=== PATIENT | male | born 1940 | race Caucasian/White ===

== ENCOUNTER 2017-09-20 22:22 | Inpatient (IN) | payer BC, OTHER ==
[~2017-09-20] VITALS: Ht 185.4 cm; Wt 86.0 kg
[2017-09-20] MEDS ORDERED: ONDANSETRON INJ 2 MG/ML 2 ML VIAL IV STA (23:15)
[2017-09-20] MEDS ORDERED: HYDROmorphone INJ 0.5 MG/0.5 ML SYR IV STA (23:15)
[2017-09-20 23:54] LABS: BASO % 0.8 %; BASO ABS # 0.05 K/uL (0-0.2); COMPLETE YES; EOS % 1.9 %; HEMATOCRIT 43.1 % (42-52); IG% 1.4 %; LYMPH % 33.3 %; LYMPH ABS # 2.14 K/uL (1.2-3.4); MEAN CELL VOLUME 85.2 fL (80-100); MEAN CORPUSCULAR HEMOGLOBIN 29.8 pg (25-34); MEAN PLATELET VOLUME 10.7 fL (7.4-10.4); MONO % 8.2 %; NEUT % 54.4 %; PLATELET COUNT 202 K/uL (130-400); RED BLOOD COUNT 5.06 M/uL (4.7-6.1); WHITE BLOOD COUNT 6.43 K/uL (4.8-10.8)
--- NOTE | 2017-09-20 23:58 | EMERGENCY ROOM VISIT NOTE ---
ED Visit Note First contact with patient: 22:59 Patient with a chronic history of back pain. Patient complains of right hip and buttocks pain that radiates into the lateral aspect of his thigh. Patient does not have any bowel or bladder dysfunction. On exam the patient's able to raise his legs off the stretcher without difficulty. Patient will be evaluated for herniated disc and further testing; likely sciatica Allergies Coded Allergies: Atorvastatin (Verified Allergy, Intermediate, Muscle pain, 09/20/17) Simvastatin (Verified Allergy, Intermediate, Muscle pain, 09/20/17) Vital Signs Date Time Temp Pulse Resp B/P (MAP) Pulse Ox O2 Delivery O2 Flow Rate FiO2 09/20/17 22:35 36.6 62 20 111/73 97 Room Air Laboratory Results 09/20/17 23:47 Red Blood Count 5.06, Mean Corpuscular Volume 85.2, Mean Corpuscular Hemoglobin 29.8, Mean Corpuscular Hemoglobin Concent 35.0, Mean Platelet Volume 10.7, Neutrophils (%) (Auto) 54.4, Lymphocytes (%) (Auto) 33.3, Monocytes (%) (Auto) 8.2, Eosinophils (%) (Auto) 1.9, Basophils (%) (Auto) 0.8, Neutrophils # (Auto) 3.50, Lymphocytes # (Auto) 2.14, Monocytes # (Auto) 0.53, Eosinophils # (Auto) 0.12, Basophils # (Auto) 0.05 Test 09/20/17 23:47 White Blood Count 6.43 K/uL (4.8-10.8) Red Blood Count 5.06 M/uL (4.7-6.1) Hemoglobin 15.1 g/dL (14.0-18.0) Hematocrit 43.1 % (42-52) Mean Corpuscular Volume 85.2 fL (80-100) Mean Corpuscular Hemoglobin 29.8 pg (25-34) Mean Corpuscular Hemoglobin Concent 35.0 g/dl (32-36) Platelet Count 202 K/uL (130-400) Mean Platelet Volume 10.7 fL (7.4-10.4) Neutrophils (%) (Auto) 54.4 % Lymphocytes (%) (Auto) 33.3 % Monocytes (%) (Auto) 8.2 % Eosinophils (%) (Auto) 1.9 % Basophils (%) (Auto) 0.8 % Neutrophils # (Auto) 3.50 K/uL (1.4-6.5) Lymphocytes # (Auto) 2.14 K/uL (1.2-3.4) Monocytes # (Auto) 0.53 K/uL (0.11-0.59) Eosinophils # (Auto) 0.12 K/uL (0-0.5) Basophils # (Auto) 0.05 K/uL (0-0.2) RDW Standard Deviation 43.3 fL (36.4-46.3) RDW Coefficient of Variation 14.1 % (11.5-14.5) Immature Granulocyte % (Auto) 1.4 % Immature Granulocyte # (Auto) 0.09 K/uL (0.00-0.02) Medications Administered Medications (Trade) Dose Ordered Sig/Sarbjit Route Start Time Stop Time Status Last Admin Dose Admin Ondansetron HCl (Zofran Inj) 4 mg NOW STAT IV 09/20/17 23:15 09/20/17 23:18 DC 09/20/17 23:56 4 MG Hydromorphone HCl (Dilaudid Inj) 0.5 mg NOW STAT IV 09/20/17 23:15 09/20/17 23:18 DC 09/20/17 23:56 0.5 MG Departure Information Referrals No Doctor, Assigned (PCP) Patient Instructions [facility]
[2017-09-21 00:11] LABS: PARTIAL THROMBOPLASTIN RATIO 1.1; PROTHROMBIN TIME (PATIENT) 10.2 SECONDS (9.0-12.0)
[2017-09-21 00:12] LABS: ALT/SGPT 43 U/L (12-78); BLOOD UREA NITROGEN 23 mg/dl (7-18); BUN/CREATININE RATIO 18.2 (10-20); CALCIUM 9.3 mg/dl (8.5-10.1); CARBON DIOXIDE 24 mmol/L (21-32); CHLORIDE 100 mmol/L (98-107); CREATININE 1.25 mg/dl (0.60-1.40); GLUCOSE 169 mg/dl (70-99); SODIUM 133 mmol/L (136-145)
[2017-09-21 00:17] LABS: ALKALINE PHOSPHATASE 126 U/L (45-117); AST/SGOT 27 U/L (15-37)
[2017-09-21] MEDS ORDERED: LISI-729 PO (00:37)
[2017-09-21] MEDS ORDERED: ENOX30IN4 SQ (00:37)
[2017-09-21] MEDS ORDERED: PRAV20TA PO (00:39)
[2017-09-21] MEDS ORDERED: POTA1CAP2 PO (00:39)
[2017-09-21] MEDS ORDERED: METO25TA3 PO (00:39)
[2017-09-21] MEDS ORDERED: DOCU-94 PO (00:39)
[2017-09-21] MEDS ORDERED: GLIP5TAB3 PO (00:42)
[2017-09-21] MEDS ORDERED: FURO-85 PO (00:42)
[2017-09-21] MEDS ORDERED: PRLSR20 PO (00:43)
[2017-09-21] MEDS ORDERED: METF-384 PO (00:43)
[2017-09-21] MEDS ORDERED: ROPI5TAB PO (00:43)
[2017-09-21] MEDS ORDERED: ACET325T96 PO (00:45)
[2017-09-21] MEDS ORDERED: TAMS0.4C38 PO (00:45)
[2017-09-21] MEDS ORDERED: HYDR-4079 PO (00:47)
[2017-09-21] MEDS ORDERED: ACET650S10 PR (00:48)
[2017-09-21] MEDS ORDERED: GADAVIST IV PRN (02:45)
[2017-09-21] MEDS ORDERED: HYDROmorphone INJ 0.5 MG/0.5 ML SYR IV STA (03:51)
--- NOTE | 2017-09-21 03:54 | EMERGENCY ROOM VISIT NOTE ---
History First contact with patient: 22:59 Chief Complaint: BACK PAIN Stated Complaint: INCREASING BACK PAIN,INABILITY TO WALK AND MOVE W/ History of Present Illness The patient is a 76 year old male who presents to the Emergency Room with complaints of severe back pain that radiates from his low back to his right hip with increasing leg pain and weakness that has been chronic but worse today for the past several years who also is feeling fatigued. Pain currently 9 out of 10. Patient states he is normally at least able to get around with his walker but was unable to today as his legs felt to weak for him but he is able to move them. Patient states his son had a left into the wheelchair. He took a hydrocodone with minimal improvement of symptoms. He is suppose to have back surgery by Dr. Vines. The paperwork was misplaced and patient will not be having surgery tomorrow as scheduled. Patient is on Lovenox for PE and DVT. Patient had recent MRI imaging. Patient denies fall, chest pain, dyspnea, fever , chills, nausea, vomiting, diarrhea, urinary symptoms, loss of bowel or bladder control, saddle anesthesia, IV drug abuse. Patient is on chronic hydrocodone for his pain. Review of Systems See HPI for pertinent positives & negatives. A total of 10 systems reviewed and were otherwise negative. Past Medical/Surgical History Hypertension, hyperlipidemia, GERD, chronic back pain, diabetes Social History Smoking Status: Never Smoker Smokeless Tobacco Use: No Alcohol Use: none Drug Use: none Marital Status: single Occupation Status: retired Current/Historical Medications Scheduled Docusate Sodium (Colace), 100 MG PO BID Enoxaparin (Lovenox), 30 MG SQ Q12H Furosemide (Lasix), 20 MG PO QAM Glipizide (Glucotrol), 5 MG PO BID Lisinopril (Zestril), 2.5 MG PO DAILY Metformin Hcl (Glucophage), 1,000 MG PO BID Metoprolol Succ (Toprol Xl) (Toprol-Xl), 25 MG PO DAILY Omeprazole (Prilosec), 20 MG PO QAM Potassium Chloride (Potassium Chloride Er), 10 MEQ PO DAILY Pravastatin (Pravachol ), 20 MG PO DAILY Ropinirole (Requip), 5 MG PO HS Tamsulosin Hcl (Flomax), 0.4 MG PO DAILY Scheduled PRN Acetaminophen (Tylenol), 650 MG MS Q4 PRN for Mild Pain Acetaminophen Tab (Tylenol), 650 MG PO Q4 PRN for Pain or Fever Hydrocodone/Acetaminophen 10MG/325MG ([place] 10MG/325MG), 1 TAB PO Q6 PRN for Moderate Pain Physical Exam Vital Signs Date Time Temp Pulse Resp B/P (MAP) Pulse Ox O2 Delivery O2 Flow Rate FiO2 09/21/17 03:33 65 18 120/67 98 Room Air 09/21/17 01:44 60 18 114/61 99 Room Air 09/21/17 00:01 70 18 110/57 99 Room Air 09/20/17 22:35 36.6 62 20 111/73 97 Room Air Physical Exam VITALS: Vitals are noted on the nurse's note and reviewed by myself. Vital signs stable. GENERAL: Pleasant elderly male, in no acute distress, nondiaphoretic, well- developed well-nourished. SKIN: The skin was without rashes, erythema, edema, or bruising. There is no tenting of the skin. Capillary reflex less than 2 seconds. HEAD: Normocephalic atraumatic. EARS: External auditory canals clear, tympanic membranes pearly joyce without erythema or effusion bilaterally. EYES: Pupils equal round and reactive to light and accommodation. Conjunctivae without injection, sclerae without icterus. Extraocular movements intact. NOSE: Patent, turbinates without inflammation or discharge. MOUTH: Mucous membranes moist. Pharynx without erythema or exudate. Uvula midline. Airway patent. Tongue does not deviate. NECK: Supple without nuchal rigidity. No lymphadenopathy. No thyromegaly. Cervical spine is nontender. No JVD. HEART: Regular rate and rhythm LUNGS: Clear to auscultation bilaterally without wheezes, rales or rhonchi. No dullness to percussion. No retractions or accessory muscle use. ABDOMEN: Positive bowel sounds x 4. Normal tympanic percussion. Soft, nontender, without masses or organomegaly. Barone sign negative. No guarding or rebound tenderness. MUSCULOSKELETAL: No muscle atrophy, erythema, or edema noted. No thoracic tenderness on exam. Minimal lumbar tenderness on exam. Positive right leg straight leg raise. Patient is able to plantarflex and dorsiflex. He has subjective decreased weakness in the left leg. NEURO: Patient was alert and oriented to person place and time. Normal sensation to light and sharp touch. No focal neurological deficits. Medical Decision & Procedures Laboratory Results 09/20/17 23:47 Red Blood Count 5.06, Mean Corpuscular Volume 85.2, Mean Corpuscular Hemoglobin 29.8, Mean Corpuscular Hemoglobin Concent 35.0, Mean Platelet Volume 10.7, Neutrophils (%) (Auto) 54.4, Lymphocytes (%) (Auto) 33.3, Monocytes (%) (Auto) 8.2, Eosinophils (%) (Auto) 1.9, Basophils (%) (Auto) 0.8, Neutrophils # (Auto) 3.50, Lymphocytes # (Auto) 2.14, Monocytes # (Auto) 0.53, Eosinophils # (Auto) 0.12, Basophils # (Auto) 0.05 09/20/17 23:47 Test 09/20/17 23:47 White Blood Count 6.43 K/uL (4.8-10.8) Red Blood Count 5.06 M/uL (4.7-6.1) Hemoglobin 15.1 g/dL (14.0-18.0) Hematocrit 43.1 % (42-52) Mean Corpuscular Volume 85.2 fL (80-100) Mean Corpuscular Hemoglobin 29.8 pg (25-34) Mean Corpuscular Hemoglobin Concent 35.0 g/dl (32-36) Platelet Count 202 K/uL (130-400) Mean Platelet Volume 10.7 fL (7.4-10.4) Neutrophils (%) (Auto) 54.4 % Lymphocytes (%) (Auto) 33.3 % Monocytes (%) (Auto) 8.2 % Eosinophils (%) (Auto) 1.9 % Basophils (%) (Auto) 0.8 % Neutrophils # (Auto) 3.50 K/uL (1.4-6.5) Lymphocytes # (Auto) 2.14 K/uL (1.2-3.4) Monocytes # (Auto) 0.53 K/uL (0.11-0.59) Eosinophils # (Auto) 0.12 K/uL (0-0.5) Basophils # (Auto) 0.05 K/uL (0-0.2) RDW Standard Deviation 43.3 fL (36.4-46.3) RDW Coefficient of Variation 14.1 % (11.5-14.5) Immature Granulocyte % (Auto) 1.4 % Immature Granulocyte # (Auto) 0.09 K/uL (0.00-0.02) Prothrombin Time 10.2 SECONDS (9.0-12.0) Prothromb Time International Ratio 1.0 (0.9-1.1) Activated Partial Thromboplast Time 28.7 SECONDS (21.0-31.0) Partial Thromboplastin Ratio 1.1 Anion Gap 9.0 mmol/L (3-11) Est Creatinine Clear Calc Drug Dose 56.8 ml/min Estimated GFR () 64.4 Estimated GFR (Non- 55.6 BUN/Creatinine Ratio 18.2 (10-20) Calcium Level 9.3 mg/dl (8.5-10.1) Total Bilirubin 0.4 mg/dl (0.2-1) Direct Bilirubin < 0.1 mg/dl (0-0.2) Aspartate Amino Transf (AST/SGOT) 27 U/L (15-37) Alanine Aminotransferase (ALT/SGPT) 43 U/L (12-78) Alkaline Phosphatase 126 U/L (45-117) Troponin I < 0.015 ng/ml (0-0.045) Total Protein 7.0 gm/dl (6.4-8.2) Albumin 3.7 gm/dl (3.4-5.0) Medications Administered Medications (Trade) Dose Ordered Sig/Sarbjit Route Start Time Stop Time Status Last Admin Dose Admin Ondansetron HCl (Zofran Inj) 4 mg NOW STAT IV 09/20/17 23:15 09/20/17 23:18 DC 09/20/17 23:56 4 MG Hydromorphone HCl (Dilaudid Inj) 0.5 mg NOW STAT IV 09/20/17 23:15 09/20/17 23:18 DC 09/20/17 23:56 0.5 MG ED Course Prior records/ancillary studies reviewed. Triage Nursing notes reviewed. Additional history obtained from family. The patient's history was concerning for back pain. Differential diagnosis: Etiologies such as musculoskeletal, disc herniation, fracture, aortic disease, metastatic disease, cord compression, discitis, infection, renal colic, gastrointestinal, acute exacerbation of chronic back pain, sciatica, cauda equina, as well as others were entertained. Physical findings: As above. ER treatment provided: dilaudid, zofran On reassessment the patient felt better. Diagnostics interpreted by me: The labs revealed stable H&H. Mild hyperglycemia without DKA Imaging studies: MRI L SPINE : Severe multifactorial degenerative central canal stenosis at L4-5 with contribution from prominent ligamentum flavum hypertrophy as well as broad disc bulge. Moderate bilateral neural foraminal stenosis on a multifactorial degenerative basis at L4-L5 and L5-S1. Additional grade 1 degenerative anterolisthesis of L4 relative to L5 with moderate to severe facet arthrosis at L4-5. No other evidence for neural impingement. Disc desiccation all levels. Radiologist: Harish Carrasco M.D. MRI of the L-spine was reviewed that the son brought in. This was given to MRI for comparison. Consultation: A consultation was placed with hospitalist, Dr. Novak. The case was discussed and diagnostics were reviewed. He will evaluate the patient for possible admission. This appears to be consistent with intractable back pain. the patient reported increasing leg weakness and inability to walk. Because of this further imaging was ordered. Patient was able to raise his legs up. He was able to plantarflex and dorsiflex. Sensation was intact. Patient will be evaluated by medicine for possible admission for severe intractable back pain. By the evaluation outlined above emergent etiologies such as fracture, aortic disease, metastatic disease, infection, renal colic, gastrointestinal, cord compression, cauda equina, as well as others were deemed relatively unlikely. The pt informed about the findings as listed above. All questions were answered and pleased with the treatment. Case reviewed with my attending Medical Decision as above Medication Reconcilliation Current Medication List: was personally reviewed by me Blood Pressure Screening Patient's blood pressure: Normal blood pressure Impression Primary Impression: Sciatica Additional Impression: Intractable back pain Departure Information Dispostion Being Evaluated By Hospitalist Condition FAIR Referrals No Doctor, Assigned (PCP) Patient Instructions My [facility] Problem Qualifiers Primary Impression: Sciatica Laterality: right Qualified Codes: M54.31 - Sciatica, right side
[2017-09-21] MEDS ORDERED: DOCUSATE SODIUM/SENNA 50/8.6MG TAB PO ONE (04:24)
[2017-09-21] MEDS ORDERED: INSULIN ASPART 100 UNITS/ML 3 ML PEN SC ONE (04:24)
[2017-09-21] MEDS ORDERED: POLYETHYLENE (MIRALAX) 17 GM PACK PO ONE (04:24)
[2017-09-21] MEDS ORDERED: KETOROLAC TROMETHAMINE 15 MG/ML VIAL IV. PRN (04:30)
[2017-09-21] MEDS ORDERED: POLYETHYLENE (MIRALAX) 17 GM PACK PO PRN (04:30)
[2017-09-21] MEDS ORDERED: ACETAMINOPHEN 325 MG TAB PO PRN (04:30)
[2017-09-21] MEDS ORDERED: GLUCOSE 40% GEL 15 GM TUBE PO PRN (04:30)
[2017-09-21] MEDS ORDERED: GLUCOSE 10 TABS/TUBE PO PRN (04:30)
[2017-09-21] MEDS ORDERED: ONDANSETRON INJ 2 MG/ML 2 ML VIAL IV PRN (04:30)
[2017-09-21] MEDS ORDERED: SODIUM CHLORIDE 0.9% 1000ML 1,000 ML IV ONE (04:30)
[2017-09-21] MEDS ORDERED: GLUCAGON FOR INJ 1 MG VIAL SQ PRN (04:30)
[2017-09-21] MEDS ORDERED: DEXTROSE 50% 50 ML SYR IV PRN (04:30)
[2017-09-21] MEDS ORDERED: HYDROmorphone INJ 0.5 MG/0.5 ML SYR IV PRN (04:30)
[2017-09-21 04:39] LABS: MAGNESIUM 1.8 mg/dl (1.8-2.4)
[2017-09-21 05:07] VITALS: BP 131/70; PULSE 57; TEMP 36.5; O2SAT 98; BMI 25.0
[2017-09-21] MEDS ORDERED: METHYLNALTREXONE BROMIDE INJ 12 MG/0.6 ML SYR SQ ONE (06:21)
[2017-09-21 06:27] LABS: ESTIMATED AVERAGE GLUCOSE 180 mg/dl; HA1C FLAG Normal (Normal)
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
[2017-09-21 07:05] VITALS: BP 115/71; PULSE 54; TEMP 36.3; O2SAT 98
--- NOTE | 2017-09-21 07:33 | DIAGNOSTIC IMAGING REPORT ---
LUMBAR SPINE COMBINATION CLINICAL HISTORY: 76 years-old Male presenting with severe pain, can't walk, on lovenox, pain in the lower back radiating to the legs, right greater than left, pain for a couple of months, numbness also radiating into the legs. TECHNIQUE: Multisequence, multiplanar MR imaging of the lumbar spine was performed before and after the administration of intravenous contrast. IV contrast: 8.5 mL of Gadavist. COMPARISON: 04/07/2010. FINDINGS: Localizer images: Distended bladder. 7 mm of grade 1 anterolisthesis of L4 on L5, which has slightly increased from the prior exam in 2010. Otherwise, normal lumbar lordosis and normal alignment of the remaining vertebral bodies. Minimal bone marrow edema noted at the posterior aspect of the inferior endplate of L4 in the midline, likely degenerative in etiology. Mild diffuse intervertebral disc desiccation with mild focal increased signal within the mid to posterior aspect of the L4-5 disc, likely also degenerative. At this level there is focal disc protrusion with minimal cranial migration. Degenerative changes further detailed below: L1-2: Minimal disc bulge without significant neural foraminal or spinal canal narrowing. L2-3: Minimal disc bulge with right posterior eccentric focal protrusion resulting in effacement of the far lateral right neural foramen. This may results in mild right neural foraminal narrowing and abutment of the exiting right L2 nerve root. No significant spinal canal narrowing. L3-4: Mild eccentric disc bulge effacing the far lateral right neural foramen resulting in mild right neural foraminal narrowing. No significant spinal canal stenosis. L4-5: Prominent disc bulge with central disc protrusion with slight cranial migration. This has worsened since the prior exam. In combination with facet arthropathy and ligamentum flavum thickening, there is complete effacement of the CSF at this level. This is similar in appearance to the prior exam in 2009. Moderate bilateral neural foraminal narrowing also results at this level. L5-S1: Mild disc bulge slightly greater along the right posterior lateral aspect. In combination with facet arthropathy and ligamentum flavum thickening, this results in mild bilateral neural foraminal narrowing and possible abutment of the bilateral exiting L5 nerve roots. No significant spinal canal stenosis. Spinal cord ends in good position at L1. Cauda equina crowded secondary to spinal stenosis at the L4-5 level, appearance which is unchanged since 2010. Mild paraspinal muscular edema noted in the lower lumbar region. No epidural collection. Postcontrast imaging demonstrates focal enhancement surrounding the disc protrusion at L4-5. The disc itself does not abnormally enhance at the L4-5 level. Minimal enhancement of the cauda equina nerve roots at the L4-5 level suggested. No other abnormal enhancement. IMPRESSION: 1. Multilevel degenerative changes slightly progressed since 2009. The most severe degenerative change is located at L4-5, where there is chronic apparent impingement of the cauda equina, and appearance which is unchanged since 2009. However, increased focal disc protrusion with cranial migration centrally at L4-5 with associated degenerative related reactive changes. 2. Multilevel neural foraminal narrowing as detailed above. Abutment of exiting nerve roots most pronounced on the right at L2 and bilaterally at L5. Electronically signed by: Milton Baig M.D. 09/21/2017 7:32 AM Dictated Date/Time: 09/21/2017 7:19 AM
[2017-09-21] MEDS: METOPROLOL SUCC 25MG EXT REL TAB PO SCH (08:30)
[2017-09-21] MEDS: LISINOPRIL 5 MG TAB PO SCH (08:31)
[2017-09-21] MEDS: PRAVASTATIN SOD 20 MG TAB PO SCH (08:31)
[2017-09-21] MEDS: TAMSULOSIN HCL 0.4 MG CAP PO SCH (08:31)
[2017-09-21] MEDS: PANTOprazole SOD 40 MG TAB PO SCH (08:31)
[2017-09-21] MEDS: DOCUSATE SODIUM/SENNA 50/8.6MG TAB PO SCH ×2 (08:31→22:03)
[2017-09-21] MEDS: INSULIN ASPART 100 UNITS/ML 3 ML PEN SC SCH ×4 (08:43→21:58)
[2017-09-21] MEDS: INSULIN GLARGINE SOLOSTAR 100 UNITS/ML 3 ML PEN SC SCH (09:27)
[2017-09-21 09:40] LABS: URINE APPEARANCE CLEAR (CLEAR); URINE BILIRUBIN NEG (NEG); URINE COLOR YELLOW; URINE NITRITE NEG (NEG); URINE SPECIFIC GRAVITY 1.027 (1.000-1.030); UROBILINOGEN NEG (NEG); ZZUR CULT IF INDIC CLEAN CATCH NO
[2017-09-21 09:45] LABS: MANUAL MICROSCOPIC REQUIRED? NO; REVIEW REQ? NO
[2017-09-21] MEDS ORDERED: IV FLUIDS COMPLETED PRN (10:15)
[2017-09-21 11:06] LABS: BUN/CREATININE RATIO 20.3 (10-20); CALCIUM 9.1 mg/dl (8.5-10.1); CREATININE 1.14 mg/dl (0.60-1.40); POTASSIUM 3.9 mmol/L (3.5-5.1)
--- NOTE | 2017-09-21 12:25 | Anesthesiology Progress Note ---
Anesthesia Progress Note Date of Service Sep 21, 2017. Progress Notes Pt is scheduled for L4-S1 decompression and fusion on 09/22/17. The pt is a 76M h /o CAD, HTN, PE, GERD, L ankle fx, DM2 presenting with lower back pain. The pt denies having an complications under anesthesia. The pt had a recent cardiac cath performed 2/2 abnormal stress test. The cardiac cath on 09/15/17 showed nonobstructive epicardial coronary artery disease. There is a patent stent in the proximal LAD without significant in-stent restenosis. The pt is an acceptable candidate for general anesthesia +/- arterial line. Consent was obtained from the patient. All questions and concerns were addressed. I spoke with Dr. Vines in regards to the patient's lovenox status. I ordered a type and screen in preparation for the procedure.
--- NOTE | 2017-09-21 12:46 | DIAGNOSTIC IMAGING REPORT ---
VENOUS DOPPLER LWR EXT BILA CLINICAL HISTORY: 76 years-old Male presenting with hx of dvt. TECHNIQUE: Real-time grayscale and color and spectral Doppler ultrasound imaging of the veins of the bilateral lower extremities was performed. Compression and augmentation were also utilized. COMPARISON: None. FINDINGS: Right: Common femoral vein: Nonocclusive filling defect consistent with thrombus. Femoral vein: Occlusive filling defect consistent with thrombus in the mid to distal superficial femoral vein. Nonocclusive thrombus noted in the proximal portion Greater saphenous vein: Patent. Popliteal vein: Nonocclusive thrombus noted. Calf veins: Intermittent flow with nonocclusive thrombus noted in one of the duplicated anterior tibial veins. Intermittent flow in the remaining calf veins, which are poorly visualized. Left: Common femoral vein: Patent. Femoral vein: Patent. Greater saphenous vein: Patent. Popliteal vein: Patent. Calf veins: Limited visualization. Other: None. IMPRESSION: Acute deep venous thrombosis involving the right superficial femoral vein to the popliteal vein. Thrombus is occlusive in some portions of the femoral vein and minimally extends into the common femoral vein. The report will be called/faxed according to standard departmental protocol. Electronically signed by: Milton Baig M.D. 09/21/2017 12:45 PM Dictated Date/Time: 09/21/2017 12:38 PM
--- NOTE | 2017-09-21 12:54 | Orthopedic Consultation ---
Orthopedic Consultation Date of Consultation: Sep 21, 2017. Attending Physician: Celso Sotomayor MD Reason for Consultation: Back and leg pain History of Present Illness Very pleasant 70-year-old male known to me with a diagnosis of spondylolisthesis and spinal stenosis affecting the lower lumbar regions. He presents to the hospital last evening with a marked decline in status. He is noting worsening pain in the lumbar sacral junction extending into the right buttock and down the leg. He's ability to stand for any short period of time as well as ambulate as markedly declined. Status post left ankle fracture June of this year. This is been treated and healed. He notes no other new complaints at this time. No changes in bowel bladder function. He does describe numbness the bilateral lower extremities to clean the feet. The right is worse than left. Past Medical/Surgical History Medical Problems: (1) Intractable back pain Status: Acute (2) Sciatica Status: Acute Social History Smoking Status: Never Smoker Smokeless Tobacco Use: No Drug Use: none Marital Status: single Occupation Status: retired Allergies Coded Allergies: Atorvastatin (Verified Allergy, Intermediate, Muscle pain, 09/20/17) Simvastatin (Verified Allergy, Intermediate, Muscle pain, 09/20/17) Home Medications Scheduled Docusate Sodium (Colace), 100 MG PO BID Enoxaparin (Lovenox), 30 MG SQ Q12H Furosemide (Lasix), 20 MG PO QAM Glipizide (Glucotrol), 5 MG PO BID Lisinopril (Zestril), 2.5 MG PO DAILY Metformin Hcl (Glucophage), 1,000 MG PO BID Metoprolol Succ (Toprol Xl) (Toprol-Xl), 25 MG PO DAILY Omeprazole (Prilosec), 20 MG PO QAM Potassium Chloride (Potassium Chloride Er), 10 MEQ PO DAILY Pravastatin (Pravachol ), 20 MG PO DAILY Ropinirole (Requip), 5 MG PO HS Tamsulosin Hcl (Flomax), 0.4 MG PO DAILY Scheduled PRN Acetaminophen (Tylenol), 650 MG CO Q4 PRN for Mild Pain Acetaminophen Tab (Tylenol), 650 MG PO Q4 PRN for Pain or Fever Hydrocodone/Acetaminophen 10MG/325MG (Gilbert 10MG/325MG), 1 TAB PO Q6 PRN for Moderate Pain Current Inpatient Medications Current Inpatient Medications Medications (Trade) Dose Ordered Sig/Sarbjit Route Start Time Stop Time Status Last Admin Dose Admin Gadobutrol (Gadavist) 8.5 mmol UD PRN IV 09/21/17 02:45 09/25/17 02:44 Acetaminophen (Tylenol Tab) 650 mg Q4H PRN PO 09/21/17 04:30 10/21/17 04:29 Insulin Aspart (novoLOG ASPART) SLIDING SCALE If C... ACHS SC 09/21/17 08:00 10/21/17 07:59 09/21/17 08:43 3 UNITS Glucose (Glucose 40% Gel) 15-30 GRAMS 15 GRAMS... UD PRN PO 09/21/17 04:30 10/21/17 04:29 Glucose (Glucose Chew Tab) 4-8 Tablets 4 Tabl... UD PRN PO 09/21/17 04:30 10/21/17 04:29 Dextrose (Dextrose 50% 50ML Syringe) 25-50ML OF 50% DW IV FOR... UD PRN IV 09/21/17 04:30 10/21/17 04:29 Glucagon (Glucagon Inj) 1 mg UD PRN SQ 09/21/17 04:30 10/21/17 04:29 Acetaminophen/ Hydrocodone Bitart (Gilbert 10/325 Tab) pain not relieved by tyle... Q4H PRN PO 09/21/17 04:30 10/05/17 04:29 Lisinopril (Zestril Tab) 2.5 mg DAILY PO 09/21/17 09:00 10/21/17 08:59 09/21/17 08:31 2.5 MG Metoprolol Succinate (Toprol Xl Tab) 25 mg DAILY PO 09/21/17 09:00 10/21/17 08:59 Pravastatin Sodium (Pravachol Tab) 20 mg DAILY PO 09/21/17 09:00 10/21/17 08:59 09/21/17 08:31 20 MG Ropinirole HCl (Requip Tab) 5 mg HS PO 09/21/17 21:00 10/21/17 20:59 Tamsulosin HCl (Flomax Cap) 0.4 mg DAILY PO 09/21/17 09:00 10/21/17 08:59 09/21/17 08:31 0.4 MG Pantoprazole Sodium (Protonix Tab) 40 mg QAM PO 09/21/17 09:00 10/21/17 08:59 09/21/17 08:31 40 MG Senna/Docusate Sodium (Senokot S Tab) 1 tab BID PO 09/21/17 09:00 10/21/17 08:59 09/21/17 08:31 1 TAB Polyethylene (Miralax Powder Packet) 17 gm DAILY PRN PO 09/21/17 04:30 10/21/17 04:29 Ketorolac Tromethamine (Toradol Inj) 15 mg Q6H PRN IV. 09/21/17 04:30 09/26/17 04:29 Hydromorphone HCl (Dilaudid Inj) 0.5 mg Q4H PRN IV 09/21/17 04:30 10/05/17 04:29 Sodium Chloride 1,000 ml @ 75 mls/hr [id number] ONCE IV 09/21/17 04:30 09/21/17 17:49 09/21/17 06:10 75 MLS/HR Ondansetron HCl (Zofran Inj) 4 mg Q6H PRN IV 09/21/17 04:30 10/21/17 04:29 Miscellaneous Information (Order Awaiting Action) 1 ea QS N/A 09/21/17 08:00 10/21/17 07:59 Insulin Glargine (Lantus Solostar Pen) 10 units DAILY SC 09/21/17 09:00 10/21/17 08:59 09/21/17 09:27 10 UNITS Miscellaneous (Iv Fluids Completed) 1 ea PRN PRN N/A 09/21/17 10:15 09/21/18 10:14 Heparin Sodium/ Dextrose 1 ea NOW STAT N/A 09/21/17 12:49 09/21/17 12:50 UNV Physical Exam Date Time Temp Pulse Resp B/P (MAP) Pulse Ox O2 Delivery O2 Flow Rate FiO2 09/21/17 07:20 Room Air 09/21/17 07:05 36.3 54 15 115/71 (86) 98 Room Air 09/21/17 05:07 36.5 57 16 131/70 98 Room Air 09/21/17 04:33 62 18 120/67 99 09/21/17 03:33 65 18 120/67 98 Room Air 09/21/17 01:44 60 18 114/61 99 Room Air 09/21/17 00:01 70 18 110/57 99 Room Air 09/20/17 22:35 36.6 62 20 111/73 97 Room Air On physical exam he is alert and oriented. He is cooperative with exam. Does demonstrate +5 out of 5 bilateral quadriceps dorsiflexion plantar flexion to extensor hallucis longus. Sensory symmetric and intact but again decreased sensation to the lower extremities from the ankle distally. [facility] [place] logroll. No evidence of clonus diminished reflexes. Laboratory Results Last 24 Hours Test 09/20/17 23:47 09/21/17 09:20 09/21/17 09:59 09/21/17 12:40 White Blood Count 6.43 K/uL Red Blood Count 5.06 M/uL Hemoglobin 15.1 g/dL Hematocrit 43.1 % Mean Corpuscular Volume 85.2 fL Mean Corpuscular Hemoglobin 29.8 pg Mean Corpuscular Hemoglobin Concent 35.0 g/dl Platelet Count 202 K/uL Mean Platelet Volume 10.7 fL Neutrophils (%) (Auto) 54.4 % Lymphocytes (%) (Auto) 33.3 % Monocytes (%) (Auto) 8.2 % Eosinophils (%) (Auto) 1.9 % Basophils (%) (Auto) 0.8 % Neutrophils # (Auto) 3.50 K/uL Lymphocytes # (Auto) 2.14 K/uL Monocytes # (Auto) 0.53 K/uL Eosinophils # (Auto) 0.12 K/uL Basophils # (Auto) 0.05 K/uL RDW Standard Deviation 43.3 fL RDW Coefficient of Variation 14.1 % Immature Granulocyte % (Auto) 1.4 % Immature Granulocyte # (Auto) 0.09 K/uL Prothrombin Time 10.2 SECONDS Prothromb Time International Ratio 1.0 Activated Partial Thromboplast Time 28.7 SECONDS 26.2 SECONDS Partial Thromboplastin Ratio 1.1 1.0 Sodium Level 133 mmol/L 133 mmol/L Potassium Level 4.0 mmol/L 3.9 mmol/L Chloride Level 100 mmol/L 98 mmol/L Carbon Dioxide Level 24 mmol/L 28 mmol/L Anion Gap 9.0 mmol/L 8.0 mmol/L Blood Urea Nitrogen 23 mg/dl 23 mg/dl Creatinine 1.25 mg/dl 1.14 mg/dl Est Creatinine Clear Calc Drug Dose 56.8 ml/min 62.3 ml/min Estimated GFR () 64.4 72.0 Estimated GFR (Non- 55.6 62.1 BUN/Creatinine Ratio 18.2 20.3 Random Glucose 169 mg/dl 192 mg/dl Estimated Average Glucose 180 mg/dl Hemoglobin A1c 7.9 % Calcium Level 9.3 mg/dl 9.1 mg/dl Magnesium Level 1.8 mg/dl Total Bilirubin 0.4 mg/dl 0.4 mg/dl Direct Bilirubin < 0.1 mg/dl Aspartate Amino Transf (AST/SGOT) 27 U/L 22 U/L Alanine Aminotransferase (ALT/SGPT) 43 U/L 40 U/L Alkaline Phosphatase 126 U/L 132 U/L Troponin I < 0.015 ng/ml Total Protein 7.0 gm/dl 6.6 gm/dl Albumin 3.7 gm/dl 3.4 gm/dl Thyroid Stimulating Hormone (TSH) 5.950 uIu/ml Free Thyroxine 1.22 ng/dl Total Triiodothyronine 1.29 ng/ml Urine Color YELLOW Urine Appearance CLEAR Urine pH 5.0 Urine Specific [place] 1.027 Urine Protein NEG Urine Glucose (UA) TRACE Urine Ketones NEG Urine Occult Blood NEG Urine Nitrite NEG Urine Bilirubin NEG Urine Urobilinogen NEG Urine Leukocyte Esterase NEG Globulin 3.2 gm/dl Albumin/Globulin Ratio 1.0 Bedside Glucose 157 mg/dl Assessment & Plan Assessment lumbar spinal stenosis with spondylolisthesis. Plan; MRI performed last evening was available for review. It does demonstrate severe central lateral recess as well as foraminal stenosis L4 5 with evidence of spondylolisthesis. There is marked facet hypertrophy and lateral recess disease at the 51 level. He's been extensive course of nonoperative care has declined rapidly despite several courses of epidural injections would like to pursue surgical intervention. It would require a lumbar decompression and fusion L4 5 L5-S1. Risks benefits pros cons and alternatives were outlined in detail. Risk include but not limited to from anesthesia blindness sterile paralysis nerve damage but last current transfusion infection requiring reoperation benefits of hopefully being marked improvement of his neurogenic claudication. This time he would like to pursue surgery he will be made nothing by mouth after midnight and will plan for surgery tomorrow afternoon.
[2017-09-21 13:25] LABS: BASO % 0.7 %; BASO ABS # 0.04 K/uL (0-0.2); EOS % 1.9 %; HEMATOCRIT 38.8 % (42-52); IG% 1.2 %; LYMPH % 21.5 %; LYMPH ABS # 1.27 K/uL (1.2-3.4); MEAN CELL VOLUME 85.3 fL (80-100); MEAN CORPUSCULAR HEMOGLOBIN 29.2 pg (25-34); MEAN PLATELET VOLUME 10.3 fL (7.4-10.4); MONO % 9.5 %; NEUT % 65.2 %; PLATELET COUNT 180 K/uL (130-400); RED BLOOD COUNT 4.55 M/uL (4.7-6.1); WHITE BLOOD COUNT 5.91 K/uL (4.8-10.8)
[2017-09-21 13:27] LABS: COMPLETE YES; MEAN CORPUSCULAR HGB CONC 34.3 g/dl (32-36)
[2017-09-21 13:34] LABS: PROTHROMBIN TIME (PATIENT) 10.4 SECONDS (9.0-12.0)
[2017-09-21 13:39] VITALS: Ht 185.4 cm; Wt 86.0 kg
[2017-09-21] MEDS: HEPARIN 25000 UNIT/ D5W 500 ML (PHARMACY PREPARED) IV PRN ×6 (13:45→23:19)
[2017-09-21 15:04] VITALS: BP 127/72; PULSE 66; TEMP 36.6; O2SAT 97
[2017-09-21] MEDS ORDERED: LIDODERM (LIDOCAINE) PATCH 5% TD ONE (16:30)
[2017-09-21] MEDS ORDERED: NURSING VERBAL MED ORDER ONE ×2 (16:30→22:30)
[2017-09-21] MEDS: HYDROCODONE/ACETAMI 10/325 TAB PO PRN (17:38)
[2017-09-21] MEDS ORDERED: SOAP SUDS ENEMA PR ONE (18:00)
[2017-09-21] MEDS ORDERED: LACTULOSE SYRUP 30 GM/45 ML UDP PO ONE (18:15)
--- NOTE | 2017-09-21 18:49 | Progress Note ---
Internal Med Progress Note Date of Service: Sep 21, 2017. Provider Documentation: complains of severe back pain. Denies chest pain or sob. No fevers. No cough. Constipated. HAd PE about 3 months ago and was placed on eliquis which is held few days back and was placed on Lovenox in anticipation of back surgery. NOW Doppler shows right lower extremity acute DVT. Started on iv heparin. Discussed with Ortho and vascular surgery and plan for IVC filter placement prior to back surgery ASSESSMENT & PLAN: [] DVT PROPHYLAXIS [] DISPOSITION [] Vital Signs: Date Time Temp Pulse Resp B/P (MAP) Pulse Ox O2 Delivery O2 Flow Rate FiO2 09/21/17 15:50 Room Air 09/21/17 15:04 36.6 66 18 127/72 (90) 97 Room Air 09/21/17 07:20 Room Air 09/21/17 07:05 36.3 54 15 115/71 (86) 98 Room Air 09/21/17 05:07 36.5 57 16 131/70 98 Room Air 09/21/17 04:33 62 18 120/67 99 09/21/17 03:33 65 18 120/67 98 Room Air 09/21/17 01:44 60 18 114/61 99 Room Air 09/21/17 00:01 70 18 110/57 99 Room Air 09/20/17 22:35 36.6 62 20 111/73 97 Room Air Lab Results: Results Past 24 Hours Test 09/20/17 23:47 09/21/17 08:12 09/21/17 09:20 09/21/17 09:59 Range/Units White Blood Count 6.43 4.8-10.8 K/uL Red Blood Count 5.06 4.7-6.1 M/uL Hemoglobin 15.1 14.0-18.0 g/dL Hematocrit 43.1 42-52 % Mean Corpuscular Volume 85.2 80-100 fL Mean Corpuscular Hemoglobin 29.8 25-34 pg Mean Corpuscular Hemoglobin Concent 35.0 32-36 g/dl Platelet Count 202 130-400 K/uL Mean Platelet Volume 10.7 7.4-10.4 fL Neutrophils (%) (Auto) 54.4 % Lymphocytes (%) (Auto) 33.3 % Monocytes (%) (Auto) 8.2 % Eosinophils (%) (Auto) 1.9 % Basophils (%) (Auto) 0.8 % Neutrophils # (Auto) 3.50 1.4-6.5 K/uL Lymphocytes # (Auto) 2.14 1.2-3.4 K/uL Monocytes # (Auto) 0.53 0.11-0.59 K/uL Eosinophils # (Auto) 0.12 0-0.5 K/uL Basophils # (Auto) 0.05 0-0.2 K/uL RDW Standard Deviation 43.3 36.4-46.3 fL RDW Coefficient of Variation 14.1 11.5-14.5 % Immature Granulocyte % (Auto) 1.4 % Immature Granulocyte # (Auto) 0.09 0.00-0.02 K/uL Prothrombin Time 10.2 9.0-12.0 SECONDS Prothromb Time International Ratio 1.0 0.9-1.1 Activated Partial Thromboplast Time 28.7 26.2 21.0-31.0 SECONDS Partial Thromboplastin Ratio 1.1 1.0 Sodium Level 133 133 136-145 mmol/L Potassium Level 4.0 3.9 3.5-5.1 mmol/L Chloride Level 100 98 98-107 mmol/L Carbon Dioxide Level 24 28 21-32 mmol/L Anion Gap 9.0 8.0 3-11 mmol/L Blood Urea Nitrogen 23 23 7-18 mg/dl Creatinine 1.25 1.14 0.60-1.40 mg/dl Est Creatinine Clear Calc Drug Dose 56.8 62.3 ml/min Estimated GFR () 64.4 72.0 Estimated GFR (Non- 55.6 62.1 BUN/Creatinine Ratio 18.2 20.3 10-20 Random Glucose 169 192 70-99 mg/dl Estimated Average Glucose 180 mg/dl Hemoglobin A1c 7.9 4.5-5.6 % Calcium Level 9.3 9.1 8.5-10.1 mg/dl Magnesium Level 1.8 1.8-2.4 mg/dl Total Bilirubin 0.4 0.4 0.2-1 mg/dl Direct Bilirubin < 0.1 0-0.2 mg/dl Aspartate Amino Transf (AST/SGOT) 27 22 15-37 U/L Alanine Aminotransferase (ALT/SGPT) 43 40 12-78 U/L Alkaline Phosphatase 126 132 45-117 U/L Troponin I < 0.015 0-0.045 ng/ml Total Protein 7.0 6.6 6.4-8.2 gm/dl Albumin 3.7 3.4 3.4-5.0 gm/dl Thyroid Stimulating Hormone (TSH) 5.950 0.300-4.500 uIu/ml Free Thyroxine 1.22 0.80-1.60 ng/dl Total Triiodothyronine 1.29 0.60-1.81 ng/ml Bedside Glucose 184 70-99 mg/dl Urine Color YELLOW Urine Appearance CLEAR CLEAR Urine pH 5.0 4.5-7.5 Urine Specific [place] 1.027 1.000-1.030 Urine Protein NEG NEG Urine Glucose (UA) TRACE NEG Urine Ketones NEG NEG Urine Occult Blood NEG NEG Urine Nitrite NEG NEG Urine Bilirubin NEG NEG Urine Urobilinogen NEG NEG Urine Leukocyte Esterase NEG NEG Globulin 3.2 2.5-4.0 gm/dl Albumin/Globulin Ratio 1.0 0.9-2 Test 09/21/17 12:40 09/21/17 13:11 09/21/17 16:57 Range/Units Bedside Glucose 157 147 70-99 mg/dl White Blood Count 5.91 4.8-10.8 K/uL Red Blood Count 4.55 4.7-6.1 M/uL Hemoglobin 13.3 14.0-18.0 g/dL Hematocrit 38.8 42-52 % Mean Corpuscular Volume 85.3 80-100 fL Mean Corpuscular Hemoglobin 29.2 25-34 pg Mean Corpuscular Hemoglobin Concent 34.3 32-36 g/dl Platelet Count 180 130-400 K/uL Mean Platelet Volume 10.3 7.4-10.4 fL Neutrophils (%) (Auto) 65.2 % Lymphocytes (%) (Auto) 21.5 % Monocytes (%) (Auto) 9.5 % Eosinophils (%) (Auto) 1.9 % Basophils (%) (Auto) 0.7 % Neutrophils # (Auto) 3.86 1.4-6.5 K/uL Lymphocytes # (Auto) 1.27 1.2-3.4 K/uL Monocytes # (Auto) 0.56 0.11-0.59 K/uL Eosinophils # (Auto) 0.11 0-0.5 K/uL Basophils # (Auto) 0.04 0-0.2 K/uL RDW Standard Deviation 43.9 36.4-46.3 fL RDW Coefficient of Variation 14.2 11.5-14.5 % Immature Granulocyte % (Auto) 1.2 % Immature Granulocyte # (Auto) 0.07 0.00-0.02 K/uL Prothrombin Time 10.4 9.0-12.0 SECONDS Prothromb Time International Ratio 1.0 0.9-1.1 Activated Partial Thromboplast Time 25.5 21.0-31.0 SECONDS Partial Thromboplastin Ratio 1.0 Microbiology Results 09/21/17 MRSA DNA Surveillance Screen - Final, Complete Specimen Negative for MRSA by DNA Probe
[2017-09-21 20:45] LABS: PARTIAL THROMBOPLASTIN RATIO 1.6
[2017-09-21] MEDS ORDERED: HEPARIN IV BOLUS 7,000 UNIT in SYRINGE 0 ML IV ONE (21:45)
[2017-09-21] MEDS: ROPINIROLE HCL 5 MG TAB PO SCH (22:03)
[2017-09-21 22:55] VITALS: BP 116/72; PULSE 56; TEMP 36.6; O2SAT 94
[2017-09-21] MEDS ORDERED: MAGNESIUM HYDROXIDE SUSP 30 ML UDC PO ONE (23:00)
[2017-09-22] VITALS (15 sets, daily range): BP systolic 92–126; BP diastolic 57–70; PULSE 57–97; TEMP 36.3–37.1; O2SAT 93–96
[2017-09-22] MEDS ORDERED: NURSING VERBAL MED ORDER ONE ×4 (01:15→15:15)
[2017-09-22 04:04] LABS: BASO % 0.4 %; BASO ABS # 0.03 K/uL (0-0.2); COMPLETE YES; EOS % 1.9 %; HEMATOCRIT 40.6 % (42-52); LYMPH % 22.3 %; LYMPH ABS # 1.62 K/uL (1.2-3.4); MEAN CELL VOLUME 85.7 fL (80-100); MEAN CORPUSCULAR HEMOGLOBIN 28.7 pg (25-34); MEAN CORPUSCULAR HGB CONC 33.5 g/dl (32-36); MEAN PLATELET VOLUME 10.6 fL (7.4-10.4); MONO % 7.6 %; NEUT % 66.8 %; PLATELET COUNT 191 K/uL (130-400); RED BLOOD COUNT 4.74 M/uL (4.7-6.1); WHITE BLOOD COUNT 7.27 K/uL (4.8-10.8)
[2017-09-22 04:22] LABS: PARTIAL THROMBOPLASTIN RATIO 4.8
[2017-09-22] MEDS: HEPARIN 25000 UNIT/ D5W 500 ML (PHARMACY PREPARED) IV PRN ×12 (04:23→23:05)
[2017-09-22] MEDS: INSULIN ASPART 100 UNITS/ML 3 ML PEN SC SCH ×4 (06:00→21:20)
[2017-09-22] MEDS: METOPROLOL SUCC 25MG EXT REL TAB PO SCH (08:21)
[2017-09-22] MEDS: DOCUSATE SODIUM/SENNA 50/8.6MG TAB PO SCH ×2 (08:22→21:14)
[2017-09-22] MEDS: PRAVASTATIN SOD 20 MG TAB PO SCH (08:22)
[2017-09-22] MEDS: LISINOPRIL 5 MG TAB PO SCH (08:22)
[2017-09-22] MEDS: TAMSULOSIN HCL 0.4 MG CAP PO SCH (08:22)
[2017-09-22] MEDS: PANTOprazole SOD 40 MG TAB PO SCH (08:22)
[2017-09-22] MEDS: LIDODERM (LIDOCAINE) PATCH 5% TD SCH (08:23)
[2017-09-22] MEDS ORDERED: SOD PHOSPHATE/SOD BIPHOSPHATE ENEMA 132 ML BTL ONE (08:40)
[2017-09-22] MEDS: INSULIN GLARGINE SOLOSTAR 100 UNITS/ML 3 ML PEN SC SCH (08:41)
[2017-09-22] MEDS ORDERED: SOD PHOSPHATE/SOD BIPHOSPHATE ENEMA 132 ML BTL PR PRN (09:00)
[2017-09-22] MEDS ORDERED: FENTANYL CITRATE INJ 50 MCG/1 ML 2 ML VIAL ONE (11:23)
[2017-09-22] MEDS ORDERED: MIDAZOLAM HCL 1 MG/ML 2ML VIAL ONE (11:23)
[2017-09-22 11:56] LABS: PARTIAL THROMBOPLASTIN RATIO 2.4
--- NOTE | 2017-09-22 12:23 | Surgery Consultation ---
Consultation Date of Service Sep 22, 2017. Chief Complaint Acute DVT while being bridged for back surgery History of Present Illness The patient is a 76 year old male who was being bridged for back surgery. USN showed an acute DVT of his right lower extremity. Being that he needs to be off anticoagulation perioperatively would need a filter, temporarily. He did have a DVT with PE about 9 months ago. Denies any chest pain or SOB at present. Vitals Vital Signs Past 12 Hours Date Time Temp Pulse Resp B/P (MAP) Pulse Ox O2 Delivery O2 Flow Rate FiO2 09/22/17 11:50 36.7 63 17 101/60 96 Room Air 09/22/17 08:15 Room Air 09/22/17 07:35 36.4 59 18 113/70 (84) 94 Room Air Allergies Coded Allergies: Atorvastatin (Verified Allergy, Intermediate, Muscle pain, 09/20/17) Simvastatin (Verified Allergy, Intermediate, Muscle pain, 09/20/17) Home Medications Scheduled Docusate Sodium (Colace), 100 MG PO BID Enoxaparin (Lovenox), 30 MG SQ Q12H Furosemide (Lasix), 20 MG PO QAM Glipizide (Glucotrol), 5 MG PO BID Lisinopril (Zestril), 2.5 MG PO DAILY Metformin Hcl (Glucophage), 1,000 MG PO BID Metoprolol Succ (Toprol Xl) (Toprol-Xl), 25 MG PO DAILY Omeprazole (Prilosec), 20 MG PO QAM Potassium Chloride (Potassium Chloride Er), 10 MEQ PO DAILY Pravastatin (Pravachol ), 20 MG PO DAILY Ropinirole (Requip), 5 MG PO HS Tamsulosin Hcl (Flomax), 0.4 MG PO DAILY Scheduled PRN Acetaminophen (Tylenol), 650 MG AR Q4 PRN for Mild Pain Acetaminophen Tab (Tylenol), 650 MG PO Q4 PRN for Pain or Fever Hydrocodone/Acetaminophen 10MG/325MG (Engadine 10MG/325MG), 1 TAB PO Q6 PRN for Moderate Pain Problem List Medical Problems: (1) DVT (deep venous thrombosis) Surgical / Medical History Hx Abdominal Surgery: Yes (appendectomy) HX Other Surgery: Yes Past Medical/Surgical History: Angioplasty/Stent (cardial 2009) Social History Smoking Status: Never Smoker Hx Tobacco Use In Past Year?: No Hx Alcohol Use - Type & Amnt: No Hx Substance Use -Type & Amnt: No Review of Systems Constitutional: No chills, No diaphoresis, No fever, No malaise, No weakness, No weight gain, No weight loss, No sweats, No fatigue, No problem reported Respiratory: No cough, No cyanosis, No BAKER, No hemoptysis, No orthopnea, No PND , No short of breath, No sputum production, No stridor, No wheezing, No dyspnea , No problem reported Cardiovascular: No chest pain, No chest tightness, No chest pressure, No palpitations, No syncope, No diaphoresis, No edema, No intermittent claudication , No orthopnea, No cyanosis, No mumur, No lightheadedness, No paroxysmal nocturnal dyspnea, No problem reported Gastrointestinal: No abdominal pain, No constipation, No diarrhea, No nausea, No vomiting, No anorexia, No appetite changes, No belching, No flatulence, No food intolerance, No hematemesis, No hemorrhoids, No hematochezia, No stool changes, No heartburn, No indigestion, No dysphagia, No rectal bleeding, No problem reported Genitourinary - Male: No impotence, No penile discharge, No penile itching, No rash, No testicular pain, No testicular swelling, No hematuria, No difficulty urinating, No problem reported Musculoskeletal: + back pain Neurologic: No dizziness, No weakness, No headache, No lethargy, No numbness, No paresthesia, No pre-existing deficit, No seizures, No tics, No tingling, No tremors, No vertigo, No memory loss, No LOC, No problem reported Psychiatric: No anxiety, No alcohol abuse, No auditory hallucinations, No depression, No drug abuse, No homicidal ideation, No mood changes, No suicidal ideation, No visual hallucinations, No problem reported Physical Exam Constitutional: General Apperance: heathly-appearing, well-nourished, well-developed Level of Distress: mild distress Ambulation: ambulating normally Psychiatric: Mental Status: active & alert, normal mood, normal affect Orientation: oriented except where noted, to time, to place, to person Memory: recent memory normal, remote memory normal Lungs: Auscultation: breath sounds normal Cardiovascular: Heart Auscultation: RRR Peripheral Pulses: Radial Pulse: normal on the left, normal on the right Femoral Pulse: normal on the left, normal on the right Abdomen: Inspection & Palpation: soft Musculoskeletal: normal Extremities: Upper Right: no cyanosis, no edema, no varicosities, no palpable cord, no clubbing, no ulcers, no mottling Upper Left: no cyanosis, no edema, no palpable cord, no clubbing, no ulcers , no mottling Lower Right: no cyanosis, no edema, no varicosities, no palpable cord, no clubbing, no ulcers, no mottling Lower Left: no cyanosis, no edema, no varicosities, no palpable cord, no clubbing, no ulcers, no mottling Assessment and Plan Imp: Acute DVT Plan: Would recommend IVC filter due to acute DVT and need of back surgery. Can be removed in 2 to 3 months. I have discussed the risks options and benefits of the procedure with the patient. The patient understands the risks options and benefits and agrees to the procedure. Thank you very much for letting me participate in the care of this patient.
--- NOTE | 2017-09-22 12:24 | Procedure Note ---
Pre-Mod Sedation Assessment General Date of Moderate Sedation: Sep 22, 2017. Vital Signs: Vital Signs Past 12 Hours Date Time Temp Pulse Resp B/P (MAP) Pulse Ox O2 Delivery O2 Flow Rate FiO2 09/22/17 11:50 36.7 63 17 101/60 96 Room Air 09/22/17 08:15 Room Air 09/22/17 07:35 36.4 59 18 113/70 (84) 94 Room Air Pre-Sedation Airway Assessment Oral Cavity: Dentures Short Thick Neck: No Hx of Sleep Apnea: No Smoking Status: Never Smoker Mallampati Classification: Class I ASA Classification: Class III Notes The planned sedation has been discussed with the patient and consent obtained. I have identified the patient, determined the appropriateness of sedation and have assessed the patient immediately prior to the procedure. All medicine(s) and interventions are by my order.
[2017-09-22] MEDS ORDERED: CEFAZOLIN IV 1,000 MG in DEXTROSE 5% 50ML 50 ML IV SCH (12:45)
[2017-09-22] MEDS ORDERED: CEFAZOLIN 2000MG IV PUSH 10 ML IV SCH (12:45)
[2017-09-22] MEDS ORDERED: FENTANYL CITRATE INJ 50 MCG/1 ML 2 ML VIAL IV ONE (13:03)
[2017-09-22] MEDS ORDERED: MIDAZOLAM HCL 1 MG/ML 2ML VIAL IV ONE (13:03)
[2017-09-22] MEDS ORDERED: LIDOCAINE HCL 1% 20 ML VIAL INFIL ONE (13:04)
--- NOTE | 2017-09-22 13:25 | [facility] Operative Report ---
Operative Report Operative Date Sep 22, 2017. Pre-Operative Diagnosis Acute DVT pending back surgery Post-Operative Diagnosis Same Procedure(s) Performed Insertion Of Vena Cava Filter, Left Jugular Approach, Ultrasound Localization Of Left Internal Jugular Vein, Fluoroscopy For Postioning, Moderate Concious Sedation 1303 to 1322 Surgeon Greg[facility] Coordinator Surgeon(s) None Estimated Blood Loss 0 Findings filter upright in infra renal IVC, no cava clot seen Specimens None Anesthesia Local with sedation Complication(s) None Disposition Indications This patient is a 76-year-old male who developed acute deep venous thrombosis while being bridged for back surgery. We therefore recommended insertion of an inferior vena cava filter for his perioperative period. I have discussed the risks options and benefits of the procedure with the patient. The patient understands the risks options and benefits and agrees to the procedure. Description of Procedure The patient was brought to the angio suite and placed in the supine position. The right side of the neck was prepped and draped in the usual fashion. The right internal jugular vein was located with ultrasound. It was found to be clotted. We then prepped the left side of the neck in the usual fashion. The left internal jugular vein was located with ultrasound. It was patent, compressed easily, and had no filling defects. The vein was then punctured under ultrasound visualization. A guidewire was then passed centrally into the inferior vena cava under fluoroscopic guidance. The puncture site was then dilated and the filter sheath inserted. It was passed to the infra renal vena cava. A venacavagram was done which showed no cava clot and an acceptable size. The renal veins were identified. The filter was then passed through the sheath and deployed in the infra renal vena cava in an upright position. Satisfied with the positioning of the filter, the sheath was removed. Pressure was applied to the puncture site. Adequate hemostasis was obtained and a sterile dressing was applied. The patient left the angio suite in good condition and tolerated the procedure well. I attest to the content of the Intraoperative Record and any orders documented therein. Any exceptions are noted below.
--- NOTE | 2017-09-22 13:26 | Procedure Note ---
Post-Moderate Sedation Plan General Date of Moderate Sedation Sep 22, 2017. Vital Signs: Vital Signs Past 12 Hours Date Time Temp Pulse Resp B/P (MAP) Pulse Ox O2 Delivery O2 Flow Rate FiO2 09/22/17 11:50 36.7 63 17 101/60 96 Room Air 09/22/17 08:15 Room Air 09/22/17 07:35 36.4 59 18 113/70 (84) 94 Room Air Review - Discharge Plan Post Moderate Sedation Plan: On clinical assessment, the patient appears to have tolerated the conscious sedation without complications. Patient is recovering as anticipated. Patient will continue to be monitored by nursing and may be discharged when conscious sedation discharge criteria are met.
[2017-09-22] MEDS ORDERED: IODIXANOL (VISIPAQUE) 270 MG/ML 50ML IV ONE (13:49)
--- NOTE | 2017-09-22 17:55 | Progress Note ---
Internal Med Progress Note Date of Service: Sep 22, 2017. Provider Documentation: s/p ivc filter placement has severe back pain 'upset that insurance not covering for surgery this admission afebrile eating lunch exam: General-alert and oriented. Not in distress ENT-normal hearing Neck-no neck masses Lungs- cta b/l no wheezing or crackles Heart-s1 and s2 heard regular rate and rhythm no murmurs Extremities-no edema no erythema Neuro-alert and oriented moves extremities ASSESSMENT & PLAN: 1. Worsening back pain. plan for back surgery await insurance approval ortho on board. 2. Acute DVT recent PE was on eliquis which is held for surgery 'currently on iv heparin s/p reversible ivc filter as patient needs to be off anticoagulation post back surgery. 2. 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 Hypertension, stable. will monitor. 3. DM2 on oral meds, which are on hold on lantus and iss hba1c 7.9 will monitor. 4. Narcotic induced constipation enema prn DVT PROPHYLAXIS iv heparin DISPOSITION to be determined Vital Signs: Date Time Temp Pulse Resp B/P (MAP) Pulse Ox O2 Delivery O2 Flow Rate FiO2 09/22/17 17:48 36.5 62 18 107/58 (74) 95 Room Air 09/22/17 16:50 36.6 57 18 107/66 (80) 95 Room Air 09/22/17 15:53 36.3 68 18 115/67 (83) 94 Room Air 09/22/17 15:18 36.4 63 18 119/62 (81) 95 Room Air 09/22/17 14:50 Room Air 09/22/17 14:50 37.1 79 20 97/63 (74) Room Air 09/22/17 14:20 36.5 78 20 105/61 95 Room Air 09/22/17 14:15 36.5 84 20 104/64 96 Room Air 09/22/17 14:00 36.5 84 20 104/64 96 Room Air 09/22/17 13:50 36.5 80 18 92/57 96 Room Air 09/22/17 13:40 36.6 84 16 107/61 96 Room Air 09/22/17 13:30 36.6 83 18 100/66 95 Room Air 09/22/17 13:23 75 18 116/70 97 Room Air 09/22/17 11:50 36.7 63 17 101/60 96 Room Air 09/22/17 08:15 Room Air 09/22/17 07:35 36.4 59 18 113/70 (84) 94 Room Air 09/21/17 23:49 Room Air 09/21/17 22:55 36.6 56 16 116/72 (87) 94 Room Air Lab Results: Results Past 24 Hours Test 09/21/17 20:21 09/21/17 20:40 09/22/17 03:52 09/22/17 05:51 Range/Units Activated Partial Thromboplast Time 40.8 126.0 21.0-31.0 SECONDS Partial Thromboplastin Ratio 1.6 4.8 Bedside Glucose 187 165 70-99 mg/dl White Blood Count 7.27 4.8-10.8 K/uL Red Blood Count 4.74 4.7-6.1 M/uL Hemoglobin 13.6 14.0-18.0 g/dL Hematocrit 40.6 42-52 % Mean Corpuscular Volume 85.7 80-100 fL Mean Corpuscular Hemoglobin 28.7 25-34 pg Mean Corpuscular Hemoglobin Concent 33.5 32-36 g/dl Platelet Count 191 130-400 K/uL Mean Platelet Volume 10.6 7.4-10.4 fL Neutrophils (%) (Auto) 66.8 % Lymphocytes (%) (Auto) 22.3 % Monocytes (%) (Auto) 7.6 % Eosinophils (%) (Auto) 1.9 % Basophils (%) (Auto) 0.4 % Neutrophils # (Auto) 4.86 1.4-6.5 K/uL Lymphocytes # (Auto) 1.62 1.2-3.4 K/uL Monocytes # (Auto) 0.55 0.11-0.59 K/uL Eosinophils # (Auto) 0.14 0-0.5 K/uL Basophils # (Auto) 0.03 0-0.2 K/uL RDW Standard Deviation 43.8 36.4-46.3 fL RDW Coefficient of Variation 14.1 11.5-14.5 % Immature Granulocyte % (Auto) 1.0 % Immature Granulocyte # (Auto) 0.07 0.00-0.02 K/uL Test 09/22/17 11:21 11/8/17 16:55 Range/Units Activated Partial Thromboplast Time 61.1 21.0-31.0 SECONDS Partial Thromboplastin Ratio 2.4 Bedside Glucose 230 70-99 mg/dl
[2017-09-22] MEDS: ROPINIROLE HCL 5 MG TAB PO SCH (21:14)
[2017-09-22] MEDS: HYDROCODONE/ACETAMI 10/325 TAB PO PRN (22:01)
[2017-09-23 04:04] VITALS: BP 100/64; PULSE 67; TEMP 36.7; O2SAT 94
[2017-09-23 05:40] LABS: HEMATOCRIT 37.9 % (42-52); MEAN CELL VOLUME 85.9 fL (80-100); MEAN CORPUSCULAR HEMOGLOBIN 29.5 pg (25-34); MEAN CORPUSCULAR HGB CONC 34.3 g/dl (32-36); MEAN PLATELET VOLUME 10.5 fL (7.4-10.4); PLATELET COUNT 177 K/uL (130-400); RED BLOOD COUNT 4.41 M/uL (4.7-6.1); WHITE BLOOD COUNT 4.89 K/uL (4.8-10.8)
[2017-09-23 06:00] LABS: PARTIAL THROMBOPLASTIN RATIO 2.3
[2017-09-23] MEDS: HEPARIN 25000 UNIT/ D5W 500 ML (PHARMACY PREPARED) IV PRN ×8 (07:03→22:55)
[2017-09-23 07:16] VITALS: BP 114/67; PULSE 60; TEMP 36.5; O2SAT 93
[2017-09-23 08:16] VITALS: O2SAT 93
[2017-09-23] MEDS: INSULIN ASPART 100 UNITS/ML 3 ML PEN SC SCH ×4 (09:06→20:48)
[2017-09-23] MEDS: INSULIN GLARGINE SOLOSTAR 100 UNITS/ML 3 ML PEN SC SCH (09:07)
[2017-09-23] MEDS: TAMSULOSIN HCL 0.4 MG CAP PO SCH (10:02)
[2017-09-23] MEDS: HYDROCODONE/ACETAMI 10/325 TAB PO PRN ×2 (10:02→22:21)
[2017-09-23] MEDS: LISINOPRIL 5 MG TAB PO SCH (10:03)
[2017-09-23] MEDS: PANTOprazole SOD 40 MG TAB PO SCH (10:03)
[2017-09-23] MEDS: DOCUSATE SODIUM/SENNA 50/8.6MG TAB PO SCH ×2 (10:03→20:49)
[2017-09-23] MEDS: PRAVASTATIN SOD 20 MG TAB PO SCH (10:03)
[2017-09-23] MEDS: METOPROLOL SUCC 25MG EXT REL TAB PO SCH (10:04)
[2017-09-23] MEDS: LIDODERM (LIDOCAINE) PATCH 5% TD SCH (10:04)
--- NOTE | 2017-09-23 10:16 | Clinical Documentation Query ---
CLINICAL DOCUMENTATION QUERY Dr. ENGLISH, "recent PE" cannot be coded as stated. In your clinical opinion is this patient being managed for: ( ) Pulmonary embolism or acute/subacute PE ( ) Not Agree ( ) Other explanation of clinical findings (Please Explain) ( ) Unable to determine (Please Define) ( ) Need to Discuss The medical record reflects the following clinical findings, treatment, and risk factors. Clinical Indicators: 76 yo male presenting with back pain, found to have a RLE DVT and was receiving current outpatient treatment for a "recent PE" which was diagnosed within the last 3 months. Pt had been transitioned from his eliquis to lovenox in preparation to his scheduled spine surgery this week. Treatment:lovenox transitioned to IV heparin, serial PTT's Risk Factors: recent PE, new DVT Acute PE: "Acute" defines the period of time beginning with the initial diagnosis, up to and including the entire period of time where anticoagulation is administered (3-12 months). Please clarify and document your clinical opinion in the progress notes and discharge summary. Terms such as "probable", "suspected", "likely", "questionable", "possible", or "still to be ruled out" are acceptable. IF IN AGREEMENT, YOU MUST DOCUMENT ABOVE DIAGNOSTIC STATEMENT IN DAILY PROGRESS NOTES AND DISCHARGE SUMMARY. This document is not part of the patient's record. Thank You, Emilee Matias, RN [phone]
[2017-09-23 11:07] VITALS: BP 120/74; PULSE 68; TEMP 36.6; O2SAT 97
[2017-09-23 15:09] VITALS: BP 109/65; PULSE 53; TEMP 36.5; O2SAT 95
--- NOTE | 2017-09-23 18:07 | Progress Note ---
Internal Med Progress Note Date of Service: Sep 23, 2017. Provider Documentation: resting comfortably very upset that back surgery cannot be done this admission afebrile no sob exam: General-alert and oriented. Not in distress ENT-normal hearing Neck-no neck masses Lungs- cta b/l no wheezing or crackles Heart-s1 and s2 heard regular rate and rhythm no murmurs Extremities-no edema no erythema Neuro-alert and oriented moves extremities ASSESSMENT & PLAN: 1. Worsening back pain. plan for back surgery await insurance approval ortho on board. patient needs to be discharged and readmitted for insurance approval await rehab placement 2. Acute DVT recent PE was on eliquis which is held for surgery 'currently on iv heparin s/p reversible ivc filter as patient needs to be off anticoagulation post back surgery. 2. 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 Hypertension, stable. will monitor. 3. DM2 on oral meds, which are on hold on lantus and iss hba1c 7.9 will monitor. 4. Narcotic induced constipation enema prn DVT PROPHYLAXIS iv heparin DISPOSITION possible d/c in am to rehab social service for d/c planning Vital Signs: Date Time Temp Pulse Resp B/P (MAP) Pulse Ox O2 Delivery O2 Flow Rate FiO2 09/23/17 15:40 Room Air 09/23/17 15:09 36.5 53 16 109/65 (80) 95 Room Air 09/23/17 11:07 36.6 68 16 120/74 (89) 97 Room Air 09/23/17 08:16 93 Room Air 09/23/17 07:25 Room Air 09/23/17 07:16 36.5 60 20 114/67 (83) 93 Room Air 09/23/17 04:04 36.7 67 18 100/64 (76) 94 Room Air 09/22/17 23:47 Room Air 09/22/17 22:54 36.7 97 18 121/70 (87) 93 Room Air 09/22/17 18:56 36.7 76 18 126/67 (86) 94 Room Air Lab Results: Results Past 24 Hours Test 09/22/17 20:39 09/23/17 05:23 09/23/17 08:00 09/23/17 11:51 Range/Units Bedside Glucose 204 166 211 70-99 mg/dl White Blood Count 4.89 4.8-10.8 K/uL Red Blood Count 4.41 4.7-6.1 M/uL Hemoglobin 13.0 14.0-18.0 g/dL Hematocrit 37.9 42-52 % Mean Corpuscular Volume 85.9 80-100 fL Mean Corpuscular Hemoglobin 29.5 25-34 pg Mean Corpuscular Hemoglobin Concent 34.3 32-36 g/dl RDW Standard Deviation 44.2 36.4-46.3 fL RDW Coefficient of Variation 14.0 11.5-14.5 % Platelet Count 177 130-400 K/uL Mean Platelet Volume 10.5 7.4-10.4 fL Activated Partial Thromboplast Time 59.3 21.0-31.0 SECONDS Partial Thromboplastin Ratio 2.3
[2017-09-23] MEDS: ROPINIROLE HCL 5 MG TAB PO SCH (20:50)
[2017-09-23 23:00] VITALS: BP 101/61; PULSE 66; TEMP 36.7; O2SAT 96
[2017-09-24] MEDS: HEPARIN 25000 UNIT/ D5W 500 ML (PHARMACY PREPARED) IV PRN ×6 (06:21→07:51)
[2017-09-24 07:20] VITALS: BP 107/62; PULSE 68; TEMP 36.8; O2SAT 95
[2017-09-24 07:21] LABS: PARTIAL THROMBOPLASTIN RATIO 2.3
[2017-09-24 07:25] LABS: BUN/CREATININE RATIO 14.4 (10-20); CALCIUM 8.9 mg/dl (8.5-10.1); CREATININE 1.07 mg/dl (0.60-1.40); MAGNESIUM 2.2 mg/dl (1.8-2.4); POTASSIUM 3.9 mmol/L (3.5-5.1)
[2017-09-24 08:04] VITALS: BP 128/78; PULSE 64; TEMP 36.7; O2SAT 95
[2017-09-24] MEDS: INSULIN ASPART 100 UNITS/ML 3 ML PEN SC SCH ×4 (09:06→21:11)
[2017-09-24] MEDS: LIDODERM (LIDOCAINE) PATCH 5% TD SCH (09:08)
[2017-09-24] MEDS: PANTOprazole SOD 40 MG TAB PO SCH (09:10)
[2017-09-24] MEDS: INSULIN GLARGINE SOLOSTAR 100 UNITS/ML 3 ML PEN SC SCH (09:10)
[2017-09-24] MEDS: TAMSULOSIN HCL 0.4 MG CAP PO SCH (09:11)
[2017-09-24] MEDS: METOPROLOL SUCC 25MG EXT REL TAB PO SCH (09:11)
[2017-09-24] MEDS: PRAVASTATIN SOD 20 MG TAB PO SCH (09:11)
[2017-09-24] MEDS: LISINOPRIL 5 MG TAB PO SCH (09:11)
[2017-09-24] MEDS: DOCUSATE SODIUM/SENNA 50/8.6MG TAB PO SCH ×2 (09:12→21:11)
[2017-09-24 09:26] VITALS: O2SAT 95
[2017-09-24 11:50] VITALS: BP 102/64; PULSE 66; TEMP 36.7; O2SAT 93
--- NOTE | 2017-09-24 12:23 | Progress Note ---
Progress Note Date of Service Sep 24, 2017. Progress Note Met with patient today reviewed our situation. Understands he will require a lumbar decompression and fusion L4 5 L5-S1. He is very anxious to proceed with surgery. He'll hopefully be discharged in the next there so and return next week for surgery.
[2017-09-24] MEDS: ENOXAPARIN 120 MG/0.8 ML SYR SQ SCH (14:00)
[2017-09-24 15:15] VITALS: BP 97/61; PULSE 61; TEMP 36.8; O2SAT 94
--- NOTE | 2017-09-24 18:31 | Progress Note ---
Internal Med Progress Note Date of Service: Sep 24, 2017. Provider Documentation: resting comfortably no chest pain or sob afebrile awaitin back surgery exam: General-alert and oriented. Not in distress ENT-normal hearing Neck-no neck masses Lungs- cta b/l no wheezing or crackles Heart-s1 and s2 heard regular rate and rhythm no murmurs Extremities-no edema no erythema Neuro-alert and oriented moves extremities ASSESSMENT & PLAN: 1. Worsening back pain. plan for back surgery await insurance approval ortho on board. patient needs to be discharged and readmitted for insurance approval await rehab placement social service rfor d/c planning 2. Acute DVT recent PE was on eliquis which is held for surgery 'currently placed on Lovenox s/p reversible ivc filter as patient needs to be off anticoagulation post back surgery. 2. 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 Hypertension, stable. will monitor. 3. DM2 on oral meds, which are on hold on lantus and iss hba1c 7.9 will monitor. 4. Narcotic induced constipation enema prn DVT PROPHYLAXIS Lovenox DISPOSITION possible d/c in am to rehab social service for d/c planning Vital Signs: Date Time Temp Pulse Resp B/P (MAP) Pulse Ox O2 Delivery O2 Flow Rate FiO2 09/24/17 16:00 Room Air 09/24/17 15:15 36.8 61 18 97/61 (73) 94 Room Air 09/24/17 11:50 36.7 66 18 102/64 (77) 93 Room Air 09/24/17 09:26 95 Room Air 09/24/17 08:04 36.7 64 17 128/78 (95) 95 Room Air 09/24/17 07:20 36.8 68 16 107/62 (77) 95 Room Air 09/24/17 07:07 Room Air 09/23/17 23:56 Room Air 09/23/17 23:00 36.7 66 16 101/61 (74) 96 Room Air Lab Results: Results Past 24 Hours Test 09/23/17 20:28 09/24/17 06:31 09/24/17 08:01 09/24/17 11:47 Range/Units Bedside Glucose 234 159 201 70-99 mg/dl Activated Partial Thromboplast Time 58.9 21.0-31.0 SECONDS Partial Thromboplastin Ratio 2.3 Sodium Level 133 136-145 mmol/L Potassium Level 3.9 3.5-5.1 mmol/L Chloride Level 100 98-107 mmol/L Carbon Dioxide Level 26 21-32 mmol/L Anion Gap 7.0 3-11 mmol/L Blood Urea Nitrogen 15 7-18 mg/dl Creatinine 1.07 0.60-1.40 mg/dl Est Creatinine Clear Calc Drug Dose 66.4 ml/min Estimated GFR () 77.7 Estimated GFR (Non- 67.1 BUN/Creatinine Ratio 14.4 10-20 Random Glucose 161 70-99 mg/dl Calcium Level 8.9 8.5-10.1 mg/dl Magnesium Level 2.2 1.8-2.4 mg/dl
[2017-09-24] MEDS: ROPINIROLE HCL 5 MG TAB PO SCH (21:11)
[2017-09-24 22:53] VITALS: BP 98/60; PULSE 60; TEMP 36.9; O2SAT 95
[2017-09-24] MEDS: HYDROCODONE/ACETAMI 10/325 TAB PO PRN (23:44)
[2017-09-25 07:03] VITALS: BP 121/74; PULSE 60; TEMP 36.6; O2SAT 95
[2017-09-25 07:04] LABS: BASO % 0.6 %; BASO ABS # 0.03 K/uL (0-0.2); COMPLETE YES; EOS % 2.4 %; HEMATOCRIT 35.8 % (42-52); IG% 0.6 %; LYMPH ABS # 1.49 K/uL (1.2-3.4); MEAN CELL VOLUME 85.2 fL (80-100); MEAN CORPUSCULAR HGB CONC 34.1 g/dl (32-36); MEAN PLATELET VOLUME 10.4 fL (7.4-10.4); MONO % 12.9 %; NEUT % 51.5 %; PLATELET COUNT 171 K/uL (130-400); WHITE BLOOD COUNT 4.65 K/uL (4.8-10.8)
[2017-09-25 07:17] LABS: PARTIAL THROMBOPLASTIN RATIO 1.1
[2017-09-25 07:27] LABS: BUN/CREATININE RATIO 14.6 (10-20); CALCIUM 9.1 mg/dl (8.5-10.1); CREATININE 1.14 mg/dl (0.60-1.40); POTASSIUM 3.9 mmol/L (3.5-5.1)
[2017-09-25] MEDS: LIDODERM (LIDOCAINE) PATCH 5% TD SCH (09:34)
[2017-09-25] MEDS: PRAVASTATIN SOD 20 MG TAB PO SCH (09:35)
[2017-09-25] MEDS: DOCUSATE SODIUM/SENNA 50/8.6MG TAB PO SCH ×2 (09:36→20:29)
[2017-09-25] MEDS: LISINOPRIL 5 MG TAB PO SCH (09:36)
[2017-09-25] MEDS: METOPROLOL SUCC 25MG EXT REL TAB PO SCH (09:36)
[2017-09-25] MEDS: TAMSULOSIN HCL 0.4 MG CAP PO SCH (09:37)
[2017-09-25] MEDS: PANTOprazole SOD 40 MG TAB PO SCH (09:37)
[2017-09-25] MEDS: INSULIN ASPART 100 UNITS/ML 3 ML PEN SC SCH ×4 (09:44→20:30)
[2017-09-25] MEDS: INSULIN GLARGINE SOLOSTAR 100 UNITS/ML 3 ML PEN SC SCH (09:45)
[2017-09-25] MEDS: ENOXAPARIN 120 MG/0.8 ML SYR SQ SCH (13:49)
[2017-09-25 15:20] VITALS: BP 107/68; PULSE 62; TEMP 36.3; O2SAT 96
--- NOTE | 2017-09-25 17:32 | Progress Note ---
Internal Med Progress Note Date of Service: Sep 25, 2017. Provider Documentation: resting comfortably eating fine no chest pain afebrile [id number] back surgery exam: General-alert and oriented. Not in distress ENT-normal hearing Neck-no neck masses Lungs- cta b/l no wheezing or crackles Heart-s1 and s2 heard regular rate and rhythm no murmurs Extremities-no edema no erythema Neuro-alert and oriented moves extremities ASSESSMENT & PLAN: 1. Worsening back pain. plan for back surgery await insurance approval ortho on board. patient needs to be discharged and readmitted for insurance approval await rehab or snf placement social service for d/c planning 2. Acute DVT recent PE was on eliquis which is held for surgery 'currently placed on Lovenox. To hold prior to back surgery s/p reversible ivc filter as patient needs to be off anticoagulation post back surgery. 2. 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 Hypertension, stable. will monitor. 3. DM2 on oral meds, which are on hold on lantus and iss hba1c 7.9 will monitor. 4. Narcotic induced constipation enema prn DVT PROPHYLAXIS Lovenox DISPOSITION plan for snf placement and readmit for back surgery social service for d/c planning Vital Signs: Date Time Temp Pulse Resp B/P (MAP) Pulse Ox O2 Delivery O2 Flow Rate FiO2 09/25/17 15:30 Room Air 09/25/17 15:20 36.3 62 16 107/68 (81) 96 Room Air 09/25/17 09:52 Room Air 09/25/17 07:03 36.6 60 17 121/74 (90) 95 Room Air 09/24/17 23:35 Room Air 09/24/17 22:53 36.9 60 14 98/60 (73) 95 Room Air Lab Results: Results Past 24 Hours Test 09/24/17 20:15 09/25/17 06:07 09/25/17 07:53 09/25/17 11:50 Range/Units Bedside Glucose 245 145 328 70-99 mg/dl White Blood Count 4.65 4.8-10.8 K/uL Red Blood Count 4.20 4.7-6.1 M/uL Hemoglobin 12.2 14.0-18.0 g/dL Hematocrit 35.8 42-52 % Mean Corpuscular Volume 85.2 80-100 fL Mean Corpuscular Hemoglobin 29.0 25-34 pg Mean Corpuscular Hemoglobin Concent 34.1 32-36 g/dl Platelet Count 171 130-400 K/uL Mean Platelet Volume 10.4 7.4-10.4 fL Neutrophils (%) (Auto) 51.5 % Lymphocytes (%) (Auto) 32.0 % Monocytes (%) (Auto) 12.9 % Eosinophils (%) (Auto) 2.4 % Basophils (%) (Auto) 0.6 % Neutrophils # (Auto) 2.39 1.4-6.5 K/uL Lymphocytes # (Auto) 1.49 1.2-3.4 K/uL Monocytes # (Auto) 0.60 0.11-0.59 K/uL Eosinophils # (Auto) 0.11 0-0.5 K/uL Basophils # (Auto) 0.03 0-0.2 K/uL RDW Standard Deviation 44.2 36.4-46.3 fL RDW Coefficient of Variation 14.3 11.5-14.5 % Immature Granulocyte % (Auto) 0.6 % Immature Granulocyte # (Auto) 0.03 0.00-0.02 K/uL Activated Partial Thromboplast Time 29.4 21.0-31.0 SECONDS Partial Thromboplastin Ratio 1.1 Sodium Level 134 136-145 mmol/L Potassium Level 3.9 3.5-5.1 mmol/L Chloride Level 100 98-107 mmol/L Carbon Dioxide Level 29 21-32 mmol/L Anion Gap 6.0 3-11 mmol/L Blood Urea Nitrogen 17 7-18 mg/dl Creatinine 1.14 0.60-1.40 mg/dl Est Creatinine Clear Calc Drug Dose 62.3 ml/min Estimated GFR () 72.0 Estimated GFR (Non- 62.1 BUN/Creatinine Ratio 14.6 10-20 Random Glucose 136 70-99 mg/dl Calcium Level 9.1 8.5-10.1 mg/dl Magnesium Level 2.0 1.8-2.4 mg/dl Test 09/25/17 17:00 Range/Units Bedside Glucose 102 70-99 mg/dl
[2017-09-25] MEDS: HYDROCODONE/ACETAMI 10/325 TAB PO PRN (20:27)
[2017-09-25] MEDS: ROPINIROLE HCL 5 MG TAB PO SCH (20:29)
[2017-09-25 22:51] VITALS: BP 106/68; PULSE 60; TEMP 36.5; O2SAT 96
[2017-09-26] MEDS ORDERED: NURSING VERBAL MED ORDER ONE (05:45)
[2017-09-26] MEDS ORDERED: MAGNESIUM HYDROXIDE SUSP 30 ML UDC PO ONE (06:00)
[2017-09-26 07:07] VITALS: BP 110/69; PULSE 61; TEMP 36.7; O2SAT 95
[2017-09-26 07:11] LABS: BUN/CREATININE RATIO 18.6 (10-20); CREATININE 1.09 mg/dl (0.60-1.40); MAGNESIUM 2.2 mg/dl (1.8-2.4)
[2017-09-26] MEDS: LIDODERM (LIDOCAINE) PATCH 5% TD SCH (08:30)
[2017-09-26] MEDS: TAMSULOSIN HCL 0.4 MG CAP PO SCH (08:30)
[2017-09-26] MEDS: LISINOPRIL 5 MG TAB PO SCH (08:30)
[2017-09-26] MEDS: PRAVASTATIN SOD 20 MG TAB PO SCH (08:31)
[2017-09-26] MEDS: PANTOprazole SOD 40 MG TAB PO SCH (08:31)
[2017-09-26] MEDS: METOPROLOL SUCC 25MG EXT REL TAB PO SCH (08:31)
[2017-09-26] MEDS: DOCUSATE SODIUM/SENNA 50/8.6MG TAB PO SCH ×2 (08:31→22:24)
[2017-09-26] MEDS: INSULIN ASPART 100 UNITS/ML 3 ML PEN SC SCH ×4 (08:33→21:00)
[2017-09-26] MEDS: INSULIN GLARGINE SOLOSTAR 100 UNITS/ML 3 ML PEN SC SCH (08:34)
[2017-09-26] MEDS ORDERED: NURSING DECISION MEDICATION ORDER SCH (08:45)
[2017-09-26] MEDS ORDERED: ARTIFICIAL TEARS OP SOLN OP PRN ×2 (09:00)
[2017-09-26] MEDS: HYDROCODONE/ACETAMI 10/325 TAB PO PRN (10:52)
[2017-09-26] MEDS: ENOXAPARIN 120 MG/0.8 ML SYR SQ SCH (12:50)
[2017-09-26 15:09] VITALS: BP 132/70; PULSE 57; TEMP 36.6; O2SAT 95
--- NOTE | 2017-09-26 17:39 | Progress Note ---
Internal Med Progress Note Date of Service: Sep 26, 2017. Provider Documentation: resting comfortably noticed some itching and redness of right eye today. itching resolved but eye still red afebrile no nausea no sob exam: General-alert and oriented. Not in distress Eye: right eye red. no drainage seen ENT-normal hearing Neck-no neck masses Lungs- cta b/l no wheezing or crackles Heart-s1 and s2 heard regular rate and rhythm no murmurs Extremities-no edema no erythema Neuro-alert and oriented moves extremities ASSESSMENT & PLAN: Alyson was admitted for back surgery. He was on eliquis for acute PE diagnosed few months back and it was held and was placed on Lovenox in anticipation of surgery. BUt was found to have right lower extremity acute DVT. As patient needs to be off anticoagulation post back surgery reversible ivc filter is placed during this admission . But Now insurance denying two procedures in one hospitalization. Patient needs to be discharged to rehab/snf and needs to be readmitted for back surgery. Awaiting final decision of insurance company. possible d/c to snf when bed available and readmit for back surgery. currently on Lovenox bridge. 1. Worsening back pain. plan for back surgery await insurance approval ortho on board. 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 Acute DVT by Doppler this admission ACUTE PE few months back was on eliquis which is held for surgery 'currently placed on Lovenox. To hold prior to back surgery s/p reversible ivc filter as patient needs to be off anticoagulation post back surgery. 3. Right red eye eye drops. 4. 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 Hypertension, stable. will monitor. 6. DM2 on oral meds, which are on hold on lantus and iss hba1c 7.9 will monitor. 7. Narcotic induced constipation enema prn DVT PROPHYLAXIS Lovenox DISPOSITION plan for snf placement and readmit for back surgery social service for d/c planning Vital Signs: Date Time Temp Pulse Resp B/P (MAP) Pulse Ox O2 Delivery O2 Flow Rate FiO2 09/26/17 15:09 36.6 57 16 132/70 (90) 95 Room Air 09/26/17 07:38 Room Air 09/26/17 07:07 36.7 61 16 110/69 (83) 95 Room Air 09/25/17 23:41 Room Air 09/25/17 22:51 36.5 60 16 106/68 (81) 96 Room Air Lab Results: Results Past 24 Hours Test 09/25/17 20:21 09/26/17 05:37 09/26/17 08:10 09/26/17 11:52 Range/Units Bedside Glucose 180 194 162 70-99 mg/dl Sodium Level 135 136-145 mmol/L Potassium Level 4.0 3.5-5.1 mmol/L Chloride Level 100 98-107 mmol/L Carbon Dioxide Level 25 21-32 mmol/L Anion Gap 10.0 3-11 mmol/L Blood Urea Nitrogen 20 7-18 mg/dl Creatinine 1.09 0.60-1.40 mg/dl Est Creatinine Clear Calc Drug Dose 65.1 ml/min Estimated GFR () 76.0 Estimated GFR (Non- 65.6 BUN/Creatinine Ratio 18.6 10-20 Random Glucose 141 70-99 mg/dl Calcium Level 9.0 8.5-10.1 mg/dl Magnesium Level 2.2 1.8-2.4 mg/dl Test 09/26/17 16:50 Range/Units Bedside Glucose 140 70-99 mg/dl
[2017-09-26] MEDS: CIPROFLOXACIN HCL 3.5 GM TUBE OP SCH (21:00)
[2017-09-26] MEDS: ROPINIROLE HCL 5 MG TAB PO SCH (22:24)
[2017-09-26 22:59] VITALS: BP 129/73; PULSE 56; TEMP 36.5; O2SAT 96
[2017-09-27] MEDS: HYDROCODONE/ACETAMI 10/325 TAB PO PRN ×3 (00:35→16:48)
[2017-09-27 06:16] LABS: HEMATOCRIT 37.3 % (42-52); MEAN CELL VOLUME 85.4 fL (80-100); MEAN CORPUSCULAR HEMOGLOBIN 29.3 pg (25-34); MEAN CORPUSCULAR HGB CONC 34.3 g/dl (32-36); MEAN PLATELET VOLUME 10.4 fL (7.4-10.4); PLATELET COUNT 193 K/uL (130-400); RED BLOOD COUNT 4.37 M/uL (4.7-6.1); WHITE BLOOD COUNT 4.68 K/uL (4.8-10.8)
--- NOTE | 2017-09-27 07:10 | ORTHOPEDIC PROGRESS NOTE ---
DATE: 09/26/2017 SUBJECTIVE: The patient still has significant back and leg pain that is limiting him. We are currently awaiting approval for his insurance that he may be transferred to [facility] in [place]. I have no recent updates other than yesterday. CURRENT PLAN: Transfer him to rehabilitation. Then, we can readmit the patient for pending lumbar spine fusion. This again has been discussed with the patient. He is quite frustrated. He seems to be under the impression that he is still getting his back surgery during this admission. Again, I have reviewed this with him. I have spoken to his POA's and again relayed the same information. All questions were answered in detail.
[2017-09-27 08:15] VITALS: BP 130/76; PULSE 58; TEMP 36.6; O2SAT 95
[2017-09-27 08:18] VITALS: O2SAT 95
[2017-09-27] MEDS: CIPROFLOXACIN HCL 3.5 GM TUBE OP SCH ×3 (08:49→21:53)
[2017-09-27] MEDS: TAMSULOSIN HCL 0.4 MG CAP PO SCH (08:49)
[2017-09-27] MEDS: PRAVASTATIN SOD 20 MG TAB PO SCH (08:50)
[2017-09-27] MEDS: PANTOprazole SOD 40 MG TAB PO SCH (08:50)
[2017-09-27] MEDS: DOCUSATE SODIUM/SENNA 50/8.6MG TAB PO SCH ×2 (08:50→21:54)
[2017-09-27] MEDS: LISINOPRIL 5 MG TAB PO SCH (08:51)
[2017-09-27] MEDS: METOPROLOL SUCC 25MG EXT REL TAB PO SCH (08:51)
[2017-09-27] MEDS: LIDODERM (LIDOCAINE) PATCH 5% TD SCH (08:55)
[2017-09-27] MEDS: INSULIN ASPART 100 UNITS/ML 3 ML PEN SC SCH ×4 (08:58→21:47)
[2017-09-27] MEDS: INSULIN GLARGINE SOLOSTAR 100 UNITS/ML 3 ML PEN SC SCH (08:59)
[2017-09-27 11:53] VITALS: BP 134/76; PULSE 59; TEMP 36.5; O2SAT 96
[2017-09-27] MEDS: ENOXAPARIN 120 MG/0.8 ML SYR SQ SCH (13:04)
[2017-09-27 15:53] VITALS: BP 112/71; PULSE 69; TEMP 36.5; O2SAT 96
--- NOTE | 2017-09-27 20:19 | Progress Note ---
Internal Med Progress Note Date of Service: Sep 27, 2017. Provider Documentation: SUBJECTIVE: complains of persistent back pain getting relief with PRN Richardson no complain of SOB or chest heaviness no fever or chills OBJECTIVE: Vital Signs-as noted below Exam: General-elderly male, no sign of distress Eyes-sclera non icteric , PERRLA/EOMI ENT-normal exam Neck-no thyromegaly , trachea midline Lungs-CT A, no wheeze or rales Heart-regular S1/S2 Abdomen-soft , non tender Extremities-no lower ext edema Neuro-AAO x3, no focal deficit Lab data as noted below. 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 Acute DVT RT LOWER EXT : lower ext Doppler : Acute deep venous thrombosis involving the right superficial femoral vein to the popliteal vein. Thrombus is occlusive in some portions of the femoral vein and minimally extends into the common femoral vein. ACUTE PE few months back was on eliquis which is held for surgery 'currently placed on Lovenox. needs to be on hold prior to back surgery s/p reversible ivc filter as patient needs to be off anticoagulation post back surgery. DM2 on oral meds, which are on hold on lantus and iss hba1c 7.9 DVT PROPHYLAXIS Lovenox DISPOSITION plan to transfer pt SNF tomorrow appreciate input form Social service SNF auth request faxed to [facility] for transfer to [facility] today. Awaiting insurance authorization. Vital Signs: Date Time Temp Pulse Resp B/P (MAP) Pulse Ox O2 Delivery O2 Flow Rate FiO2 09/27/17 15:53 36.5 69 18 112/71 (85) 96 Room Air 09/27/17 15:15 Room Air 09/27/17 11:53 36.5 59 22 134/76 (95) 96 Room Air 09/27/17 08:18 95 Room Air 09/27/17 08:15 36.6 58 23 130/76 (94) 95 Room Air 09/27/17 07:50 Room Air 09/26/17 23:57 Room Air 09/26/17 22:59 36.5 56 16 129/73 (91) 96 Room Air Lab Results: Results Past 24 Hours Test 09/27/17 05:44 09/27/17 08:01 09/27/17 12:12 09/27/17 17:14 Range/Units White Blood Count 4.68 4.8-10.8 K/uL Red Blood Count 4.37 4.7-6.1 M/uL Hemoglobin 12.8 14.0-18.0 g/dL Hematocrit 37.3 42-52 % Mean Corpuscular Volume 85.4 80-100 fL Mean Corpuscular Hemoglobin 29.3 25-34 pg Mean Corpuscular Hemoglobin Concent 34.3 32-36 g/dl RDW Standard Deviation 43.9 36.4-46.3 fL RDW Coefficient of Variation 14.1 11.5-14.5 % Platelet Count 193 130-400 K/uL Mean Platelet Volume 10.4 7.4-10.4 fL Bedside Glucose 156 212 141 70-99 mg/dl Test 09/27/17 20:52 Range/Units Bedside Glucose 169 70-99 mg/dl
[2017-09-27] MEDS ORDERED: HYDR-4079 PO (21:01)
--- NOTE | 2017-09-27 21:04 | Discharge Instructions ---
Discharge Instructions Date of Service Sep 27, 2017. Admission Reason for Admission: Intractable Back Pain Discharge Discharge Diagnosis / Problem: INTRACTABLE BACK PAIN /LUMBER SPINAL STENOSIS Discharge Goals Goal(s): Increase independence, Improve disease control, Diagnostic testing Activity Recommendations Activity Level: Assistance Required Therapies: Physical Therapy, Occupational Therapy . Additional Information Patient informed of condition: Yes Advance Directives: No DNR: No Level of Care: Skilled Communicable Disease: No Prognosis: Stable Cal[place]jas Catheter: No Instructions / Follow-Up Instructions / Follow-Up DR WILSON WILL CONTACT FOR PRE SURGERY INSTRUCTIONS PRIOR TO SPINAL SURGERY CONTINUE TO TAKE LOVENOX UNTIL INSTRUCTED SUB Q LOVENOX NEEDS TO BE ON HOLD 24 HRS PRIOR TO SPINAL SURGERY Current Hospital Diet Patient's current hospital diet: AHA Diet (Heart Healthy), Diabetes Type 2 Diet Discharge Diet Recommended Diet: Diabetes Type 2 Diet, Renal Diet Procedures Procedures Performed: Insertion Of Vena Cava Filter, Left Jugular Approach, Ultrasound Localization Of Left Internal Jugular Vein, Fluoroscopy For Postioning, Moderate Concious Sedation 1303 to 1322 Pending Studies Studies pending at discharge: no Laboratory Results Hemoglobin A1c Test 09/20/17 23:47 Range/Units Estimated Average Glucose 180 mg/dl Hemoglobin A1c 7.9 H 4.5-5.6 % Medical Emergencies . Who to Call and When: Medical Emergencies: If at any time you feel your situation is an emergency, please call 911 immediately. . Non-Emergent Contact Non-Emergency issues call your: Primary Care Provider . . "Provider Documentation" section prepared by Charissa Pfeiffer. . Core Measure Problem Core Measures: VTE VTE Core Measures Date of VTE Diagnosis: Sep 21, 2017 Time of VTE Diagnosis: 10:26 Reason no anticoag overlap I/P: Treatment not indicated Reason no anticoag overlap @DC: Treatment not indicated
[2017-09-27] MEDS ORDERED: MRLP17X PO (21:18)
[2017-09-27] MEDS ORDERED: CLXOPO OP (21:18)
[2017-09-27] MEDS ORDERED: SENN8.6T7 PO (21:18)
[2017-09-27] MEDS ORDERED: Artificial Tears OP (21:18)
[2017-09-27] MEDS ORDERED: SODIENE6 PR (21:18)
[2017-09-27] MEDS: ROPINIROLE HCL 5 MG TAB PO SCH (21:53)
[2017-09-27 22:45] VITALS: BP 104/66; PULSE 55; TEMP 36.6; O2SAT 95
[2017-09-28] MEDS: HYDROCODONE/ACETAMI 10/325 TAB PO PRN ×2 (05:30→10:00)
[2017-09-28 05:38] LABS: BASO % 0.6 %; BASO ABS # 0.03 K/uL (0-0.2); COMPLETE YES; EOS % 3.4 %; HEMATOCRIT 37.1 % (42-52); IG% 0.4 %; LYMPH % 27.9 %; LYMPH ABS # 1.47 K/uL (1.2-3.4); MEAN CELL VOLUME 85.5 fL (80-100); MEAN CORPUSCULAR HEMOGLOBIN 29.5 pg (25-34); MEAN CORPUSCULAR HGB CONC 34.5 g/dl (32-36); MEAN PLATELET VOLUME 9.8 fL (7.4-10.4); MONO % 8.9 %; NEUT % 58.8 %; PLATELET COUNT 185 K/uL (130-400); RED BLOOD COUNT 4.34 M/uL (4.7-6.1); WHITE BLOOD COUNT 5.27 K/uL (4.8-10.8)
[2017-09-28 07:19] VITALS: BP 106/67; PULSE 60; TEMP 36.7; O2SAT 95
[2017-09-28] MEDS: CIPROFLOXACIN HCL 3.5 GM TUBE OP SCH (09:19)
[2017-09-28] MEDS: TAMSULOSIN HCL 0.4 MG CAP PO SCH (09:19)
[2017-09-28] MEDS: PANTOprazole SOD 40 MG TAB PO SCH (09:20)
[2017-09-28] MEDS: DOCUSATE SODIUM/SENNA 50/8.6MG TAB PO SCH (09:20)
[2017-09-28] MEDS: PRAVASTATIN SOD 20 MG TAB PO SCH (09:20)
[2017-09-28 09:22] VITALS: BP 102/62; PULSE 67
[2017-09-28] MEDS: LISINOPRIL 5 MG TAB PO SCH (09:23)
[2017-09-28] MEDS: METOPROLOL SUCC 25MG EXT REL TAB PO SCH (09:24)
[2017-09-28] MEDS: LIDODERM (LIDOCAINE) PATCH 5% TD SCH (09:27)
[2017-09-28] MEDS: INSULIN ASPART 100 UNITS/ML 3 ML PEN SC SCH (09:29)
[2017-09-28] MEDS: INSULIN GLARGINE SOLOSTAR 100 UNITS/ML 3 ML PEN SC SCH (09:30)
[2017-09-28 10:04] VITALS: BP 102/62; PULSE 67; TEMP 36.7; O2SAT 95
[2017-09-28] MEDS ORDERED: LVNIS120 SQ (10:19)
[2017-09-28] MEDS: ENOXAPARIN 120 MG/0.8 ML SYR SQ SCH (10:31)
--- NOTE | 2017-09-28 10:41 | Progress Note ---
Internal Med Progress Note Date of Service: Sep 28, 2017. Provider Documentation: SUBJECTIVE: had pain medication earlier has moderated pain in back accepted at rehab , nephew present at bedside pt will be discharged to [facility] today , nephew will provide transport pt will return in next few days for spinal decompression surgery by Dr Vines OBJECTIVE: Vital Signs-as noted below Exam: General-elderly male, no sign of distress Eyes-sclera non icteric , PERRLA/EOMI ENT-normal exam Neck-no thyromegaly , trachea midline Lungs-CT A, no wheeze or rales Heart-regular S1/S2 Abdomen-soft , non tender Extremities-no lower ext edema Neuro-AAO x3, no focal deficit Lab data as noted below. 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 -L3 region spinal surgery consulted, appreciate input from Dr Vines -pt will need spinal decompression surgery found to have acute DVT on rt lower ext this admission s/p IVC filter placement per insurance -pt can not have 2 procedures done in same admission patient needs to be discharged and readmitted for insurance approval for spinal decompression surgery referral made for SNF plan to discharge pt to SNF today possible spinal decompression surgery on 09/30/17 surgery team waiting for insurance approval for the procedure pt will be re admitted in next 48 hrs for tentative spinal surgery on 2. Acute DVT RT LOWER EXT : lower ext Doppler : Acute deep venous thrombosis involving the right superficial femoral vein to the popliteal vein. Thrombus is occlusive in some portions of the femoral vein and minimally extends into the common femoral vein. ACUTE PE few months back was on eliquis which is held for surgery 'currently placed on Lovenox. needs to be on hold 24 hrs prior to back surgery s/p retrievable ivc filter as patient needs to be off anticoagulation post back surgery. DM2 on lantus and iss hba1c 7.9 resumed oral meds on discharge DVT PROPHYLAXIS Lovenox therapeutic dose SC DISPOSITION plan to transfer pt SNF [facility] today Vital Signs: Date Time Temp Pulse Resp B/P (MAP) Pulse Ox O2 Delivery O2 Flow Rate FiO2 09/28/17 10:04 36.7 67 16 95 Room Air 09/28/17 09:22 67 102/62 (75) 09/28/17 07:45 Room Air 09/28/17 07:19 36.7 60 16 106/67 (80) 95 Room Air 09/27/17 23:35 Room Air 09/27/17 22:45 36.6 55 18 104/66 (79) 95 Room Air 09/27/17 15:53 36.5 69 18 112/71 (85) 96 Room Air 09/27/17 15:15 Room Air 09/27/17 11:53 36.5 59 22 134/76 (95) 96 Room Air Lab Results: Results Past 24 Hours Test 09/27/17 12:12 09/27/17 17:14 09/27/17 20:52 09/28/17 05:21 Range/Units Bedside Glucose 212 141 169 70-99 mg/dl White Blood Count 5.27 4.8-10.8 K/uL Red Blood Count 4.34 4.7-6.1 M/uL Hemoglobin 12.8 14.0-18.0 g/dL Hematocrit 37.1 42-52 % Mean Corpuscular Volume 85.5 80-100 fL Mean Corpuscular Hemoglobin 29.5 25-34 pg Mean Corpuscular Hemoglobin Concent 34.5 32-36 g/dl Platelet Count 185 130-400 K/uL Mean Platelet Volume 9.8 7.4-10.4 fL Neutrophils (%) (Auto) 58.8 % Lymphocytes (%) (Auto) 27.9 % Monocytes (%) (Auto) 8.9 % Eosinophils (%) (Auto) 3.4 % Basophils (%) (Auto) 0.6 % Neutrophils # (Auto) 3.10 1.4-6.5 K/uL Lymphocytes # (Auto) 1.47 1.2-3.4 K/uL Monocytes # (Auto) 0.47 0.11-0.59 K/uL Eosinophils # (Auto) 0.18 0-0.5 K/uL Basophils # (Auto) 0.03 0-0.2 K/uL RDW Standard Deviation 44.0 36.4-46.3 fL RDW Coefficient of Variation 14.2 11.5-14.5 % Immature Granulocyte % (Auto) 0.4 % Immature Granulocyte # (Auto) 0.02 0.00-0.02 K/uL
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
[2017-09-29] MEDS ORDERED: BISA10SU13 RE (14:51)
[2017-09-29] MEDS ORDERED: DEXT40GE PO (14:51)
[2017-09-29] MEDS ORDERED: ARTISOL12 OP (14:51)
[2017-09-29] MEDS ORDERED: MOML PO (14:51)
== END 2017-09-28 10:57 | DRG 254 ==
LOC: C.EDB 22:23 → C.MSW 09-21 03:59 → ENRESERV 09-21 04:09 → OBSVTOIN 09-21 14:35
PROVIDERS: ADMIT Internal Medicine; ATTEND Hospitalist
PROC: 06H03DZ Insertion of Intraluminal Device into Inferior Vena Cava, Percutaneous Approach (ICD-10-PCS; principal; 2017-09-22 12:00)
DX: I82.411 Acute embolism and thrombosis of right femoral vein (principal); I82.432 Acute embolism and thrombosis of left popliteal vein; M48.061 Spinal stenosis, lumbar region without neurogenic claudication; M43.16 Spondylolisthesis, lumbar region; K59.03 Drug induced constipation; T40.605A Adverse effect of unspecified narcotics, initial encounter; Z86.711 Personal history of pulmonary embolism; E11.9 Type 2 diabetes mellitus without complications; I11.9 Hypertensive heart disease without heart failure; I25.10 Atherosclerotic heart disease of native coronary artery without angina pectoris; E78.5 Hyperlipidemia, unspecified; K21.9 Gastro-esophageal reflux disease without esophagitis; N40.0 Benign prostatic hyperplasia without lower urinary tract symptoms; Z51.81 Encounter for therapeutic drug level monitoring; Z79.899 Other long term (current) drug therapy; Z79.891 Long term (current) use of opiate analgesic; Z79.01 Long term (current) use of anticoagulants; Z79.4 Long term (current) use of insulin; Z95.5 Presence of coronary angioplasty implant and graft

== ENCOUNTER 2017-09-30 07:47 | Inpatient (IN) | payer BC, OTHER ==
[~2017-09-30] VITALS: Ht 185.4 cm; Wt 86.5 kg
[2017-09-30] VITALS (9 sets, daily range): BP systolic 105–138; BP diastolic 56–76; PULSE 54–63; TEMP 36.3–36.6; O2SAT 96–100; BMI 25.0
[~2017-09-30 07:47] MED LIST: ACET325T96 PO; ACET650S10 PR; ARTISOL12 OP; ATROPINE SULFATE 0.1 MG/ML 5ML SYR IV PRN; BISA10SU13 RE; CLXOPO OP; DEXT40GE PO; DOCU-94 PO; EpHEDrine SULFATE INJ 50 MG/ML AMP IV PRN; FENTANYL CITRATE INJ 50 MCG/1 ML 2 ML VIAL IV PRN; FURO-85 PO; GLIP5TAB3 PO; HYDR-4079 PO; HYDROmorphone INJ 1 MG/ML SYR IV PRN; LABETALOL HCL IV 5 MG/ML 20ML IV PRN; LACTATED RINGER'S 1000ML 1,000 ML IV SCH; LISI-729 PO; LVNIS120 SQ; METF-384 PO; METO25TA3 PO; MOML PO; MRLP17X PO; ONDANSETRON INJ 2 MG/ML 2 ML VIAL IV PRN; PHENYLEPHRINE 100MCG/ML 5ML SYR IV PRN; POTA1CAP2 PO; PRAV20TA PO; PRLSR20 PO; ROPI5TAB PO; SODIENE6 PR; TAMS0.4C38 PO
[2017-09-30] MEDS ORDERED: FENTANYL CITRATE INJ 50 MCG/1 ML 2 ML VIAL ONE ×5 (09:03→12:46)
[2017-09-30] MEDS ORDERED: MIDAZOLAM HCL 1 MG/ML 2ML VIAL ONE (09:03)
--- NOTE | 2017-09-30 09:08 | History & Physical Bridge Note ---
H&P Re-Evaluation Bridge Note: I have examined the patient, reviewed the History & Physical and in the interval since the performance of the History & Physical I have noted the following changes of clinical significance: No changes noted
--- NOTE | 2017-09-30 09:09 | History and Physical ---
History & Physical Date Sep 30, 2017. Chief Complaint Back and leg pain History of Present Illness The patient is a 76 year old male with complaints of back and leg pain Past Medical/Surgical History Medical Problems: (1) DVT (deep venous thrombosis) Additional History Hepatic Disease: No Endocrine Disorder: No Kidney Disease: No Hypertension: Yes Heart Disease: No Bleeding Tendencies: No Infectious Diseases: No Allergies Coded Allergies: Atorvastatin (Verified Allergy, Intermediate, Muscle pain, 09/30/17) Simvastatin (Verified Allergy, Intermediate, Muscle pain, 09/30/17) Home Medications Scheduled Ciprofloxacin Hcl (Ophth) (Ciloxan 0.3% Oph), 1 APPLN OP TID Docusate Sodium (Colace), 100 MG PO BID Enoxaparin (Lovenox), 120 MG SQ DAILY@1300 Furosemide (Lasix), 20 MG PO QAM Glipizide (Glucotrol), 5 MG PO BID Lisinopril (Zestril), 2.5 MG PO QAM Metformin Hcl (Glucophage), 1,000 MG PO BID Metoprolol Succ (Toprol Xl) (Toprol-Xl), 25 MG PO QAM Omeprazole (Prilosec), 20 MG PO QAM Potassium Chloride (Potassium Chloride Er), 10 MEQ PO QAM Pravastatin (Pravachol ), 20 MG PO QD@1700 Ropinirole (Requip), 5 MG PO HS Tamsulosin Hcl (Flomax), 0.4 MG PO QAM Scheduled PRN Acetaminophen (Tylenol), 650 MG FL Q4 PRN for Mild Pain Acetaminophen Tab (Tylenol), 650 MG PO Q4 PRN for Pain or Fever Artificial Tear Solution (Artificial Tears), 1 DROPS OP Q4 PRN for dry eyes Bisacodyl (Biscolax), 1 SUPP RE [id number] PRN for Constipation Dextrose (Diabetic Use) (Insta-Glucose), 1 DOSE PO DAILY PRN for HYPOGLYCEMIA PROTOCOL Hydrocodone/Acetaminophen 10MG/325MG ([place] 10MG/325MG), 1-2 TAB PO Q4H PRN for pain Magnesium Hydroxide (Milk Of Magnesia), 30 ML PO [id number] PRN for Constipation Polyethylene (Miralax), 17 GM PO DAILY PRN for Constipation Sodium Phosphates (Enema Dsich-Xk-Pei), 132 ML FL DAILY PRN for CONSTIPATION Physical Examination Skin: warm/dry, no rash Eyes: normal inspection, EOMI, sclerae normal ENT: normal ENT inspection, pharynx normal Head: normocephalic, atraumatic Neck: supple, no adenopathy, trachea midline Respiratory/Chest: lungs clear, normal breath sounds, no respiratory distress Cardiovascular: regular rate, rhythm, no edema, no murmur Abdomen / GI: normal bowel sounds, non tender Back: normal inspection Extremities: normal inspection, normal range of motion Neurologic/Psych: no motor/sensory deficits, alert, normal reflexes, oriented x 3 Diagnosis Lumbar spinal stenosis with spondylolisthesis Plan of Treatment Lumbar decompression fusion L4 5 L5-S1
[2017-09-30] MEDS ORDERED: APIX1TAB3 PO (09:20)
[2017-09-30] MEDS ORDERED: CEFAZOLIN SOD 2000MG/10 ML IV PUSH IV ONE (09:23)
[2017-09-30] MEDS ORDERED: BACITRACIN 50000 UNIT VIAL ONE (09:25)
[2017-09-30] MEDS ORDERED: BUPIVACAINE/EPINEPHRINE 0.5% MPF 1:200,000 30 ML VIAL ONE (09:25)
[2017-09-30] MEDS ORDERED: NURSING VERBAL MED ORDER ONE (09:30)
[2017-09-30] MEDS ORDERED: HYDROmorphone INJ 2 MG/ML SYR/VIAL ONE ×3 (10:14→11:41)
[2017-09-30] MEDS ORDERED: PROPOFOL IV EMULSION 10 MG/ML 20 ML VIAL IV ONE (11:42)
[2017-09-30] MEDS ORDERED: EpHEDrine SULFATE 50MG/5ML SYR ONE (11:42)
[2017-09-30] MEDS ORDERED: LIDOCAINE HCL 2% 2 ML VIAL (20MG/ML) ONE (11:42)
[2017-09-30] MEDS ORDERED: PHENYLEPHRINE 100MCG/ML 5ML SYR ONE (11:42)
[2017-09-30] MEDS ORDERED: DEXAMETHASONE SOD INJ 4 MG/ML VIAL ONE (11:42)
[2017-09-30] MEDS ORDERED: ROCURONIUM BROMIDE 10 MG/ML 5 ML VIAL IV ONE ×3 (11:42→11:48)
[2017-09-30] MEDS ORDERED: ONDANSETRON INJ 2 MG/ML 2 ML VIAL ONE ×2 (11:42→12:02)
[2017-09-30] MEDS ORDERED: SODIUM CHLORIDE 0.9% 1000ML 1,000 ML IV SCH (11:55)
[2017-09-30] MEDS ORDERED: ACETAMINOPHEN 650 MG SUPP PR PRN (12:00)
[2017-09-30] MEDS ORDERED: DO NOT ADMINISTER FLU VACCINE PRN ×3 (12:00)
[2017-09-30] MEDS ORDERED: FAMOTIDINE 20 MG TAB PO PRN (12:00)
[2017-09-30] MEDS ORDERED: SOD PHOSPHATE/SOD BIPHOSPHATE ENEMA 132 ML BTL PR PRN (12:00)
[2017-09-30] MEDS ORDERED: BISACODYL 10 MG SUPP PR PRN (12:00)
[2017-09-30] MEDS ORDERED: ACETAMINOPHEN IV 100 ML IV PRN (12:00)
[2017-09-30] MEDS ORDERED: DO NOT ADMINISTER PNEUMOCOCCAL VACCINE PRN ×2 (12:00)
[2017-09-30] MEDS ORDERED: ONDANSETRON INJ 2 MG/ML 2 ML VIAL IV PRN (12:00)
[2017-09-30] MEDS ORDERED: MAGNESIUM HYDROXIDE SUSP 30 ML UDC PO PRN (12:00)
[2017-09-30] MEDS ORDERED: ACETAMINOPHEN 325 MG TAB PO PRN (12:00)
[2017-09-30] MEDS ORDERED: PROMETHAZINE HCL INJ 12.5 MG in SODIUM CHLORIDE 0.9% 50ML 50 ML IV PRN (12:00)
[2017-09-30] MEDS ORDERED: METOCLOPRAMIDE HCL INJ 5 MG/ML 2 ML VIAL IV PRN (12:00)
[2017-09-30] MEDS ORDERED: LORAZEPAM 0.5 MG TAB PO PRN (12:00)
[2017-09-30] MEDS ORDERED: ALUMINUM/MAGNESIUM SUSP 30 ML UDC PO PRN (12:00)
[2017-09-30] MEDS ORDERED: LORAZEPAM INJ 0.5 MG in SYRINGE 0.75 ML IV PRN (12:00)
[2017-09-30] MEDS ORDERED: ACETAMINOPHEN 500 MG TAB PO PRN (12:00)
[2017-09-30] MEDS ORDERED: NALOXONE HCL 0.4 MG/1 ML VIAL/CARP IV PRN ×2 (12:00)
[2017-09-30] MEDS ORDERED: hydrOXYzine HCL 25 MG TAB PO PRN (12:00)
[2017-09-30] MEDS ORDERED: KETOROLAC TROMETHAMINE 30 MG/ML VIAL ONE (12:02)
[2017-09-30] MEDS ORDERED: NEOSTIGMINE METHYLSULFATE 1 MG/ML 10ML VIAL ONE (12:02)
[2017-09-30] MEDS ORDERED: GLYCOPYRROLATE INJ 0.2 MG/ML VIAL ONE (12:02)
--- NOTE | 2017-09-30 12:03 | [facility] Operative Report ---
Operative Report Operative Date Sep 30, 2017. Pre-Operative Diagnosis Lumbar spinal stenosis with spondylolisthesis Post-Operative Diagnosis Lumbar spinal stenosis with spondylolisthesis Procedure(s) Performed #1 lumbar decompression medial facetectomies foraminotomies L3 4 L4 5 L5-S1. #2 posterior spinal fusion L4 5 L5-S1. #3 placement posterior segmental instrumentation L4 5 L5-S1. #4 interbody fusion L4 5 L5-S1. #5 placement peek Cage 14 x 26 mm at L4 5 and 12 x 26 mm at L5-S1. #6 placement of locally harvested morcellized autograft in the posterior lateral gutters. #7 placement infuse collagen sponge commode Master graft the posterior lateral gutters and ostial amp in the interbody space. Surgeon Dr. Javier Vines Customs Brokerage Agent Surgeon(s) Zulma Hoskins PA-C Estimated Blood Loss 250mL Findings Severe spinal stenosis with herniated nucleus pulposis Specimens None per surgeon Description of Procedure Patient was met with preoperatively case discussed all questions were addressed. After informed consent was obtained patient was taken to the operative suite placed in a prone position the Jl table on top of the Darius frame. All bony prominences well-padded eyes inspected to ensure there is no external pressure placed upon them. This point the lumbar spine was prepped and draped in normal sterile fashion. Sharp dissection with the assistance of Bovie cautery was performed onto an exposing the lamina and transverse processes of L4-L5 and sacral alar bilaterally. Color cephalad fashion complete laminectomy of L5 L4 and partial laminectomy of L3 was performed addressing severe lateral recess and foraminal stenosis. Complete decompression pedicle screws are placed in L4 L5 S1 levels bilaterally with assistance of fluoroscopy the purposes mansoor placed through a transforaminal approach on the right a complete discectomy of L5-S1 was performed and plate created to subcortical bleeding bone and a 12 x 26 Vidal peek cage filled with ostial amp tapped in position. Then proceeded L4 5 and again through a transpedicular approach on the right complete discectomy performed and plate created to subcortical bleeding bone and a 14 x 26 Bro peek cage filled with ostial amp tapped in position. The rods were then compressed locked into final position bilaterally. The transverse processes of L4-L5 and the sacral alar burred to subcortical bleeding bone. Infuse calm sponge mask graft locally harvested morcellized autograft was placed in the posterior lateral gutters. 15 round JOB drain was inserted and incision was closed with 1 Vicryl fascia 2-0 Vicryl subcutaneous C 4 Monocryl for final skin closure Steri-Strips sterile dressings placed patient we can take PACU stable condition. Please note Zulma Hoskins was present throughout the entire procedure involved in patient positioning complex portions of the surgery and final skin closure. I attest to the content of the Intraoperative Record and any orders documented therein. Any exceptions are noted below.
[2017-09-30] MEDS ORDERED: HYDROmorphone HCL 0.5MG/ML 50 ML CASSETTE ONE (12:30)
--- NOTE | 2017-09-30 12:31 | DIAGNOSTIC IMAGING REPORT ---
INTRAOPERATIVE LUMBAR SPINE 2 VIEWS CLINICAL HISTORY: L4-S1 DECOMPRESSION AND FUSION COMPARISON STUDY: No previous studies for comparison. FINDINGS: 19 seconds of fluoroscopic time was utilized. 2 intraoperative fluoroscopic spot films are provided for interpretation. There are postsurgical changes of discectomies and interbody fusions at the L4-5 and L5-S1 levels. There is posterior pedicle screw fixation with screws at the L4, L5, and S1 levels. There are adjoining spinal rods. IMPRESSION: Postsurgical changes of an L4-S1 spinal decompression and fusion. Electronically signed by: Elias Olsen M.D. 09/30/2017 12:29 PM Dictated Date/Time: 09/30/2017 12:28 PM
--- NOTE | 2017-09-30 13:04 | Anesthesiology Progress Note ---
Anesthesia Post Op Note Date & Time Sep 30, 2017 at 13:03 Vital Signs Pain Intensity: 3.0 Vital Signs Past 12 Hours Date Time Temp Pulse Resp B/P (MAP) Pulse Ox O2 Delivery O2 Flow Rate FiO2 09/30/17 12:20 36.4 72 16 120/65 96 Mask 7 09/30/17 08:20 36.5 63 22 138/76 98 Room Air Notes Mental Status: alert / awake / arousable, participated in evaluation Pt Amnestic to Procedure: Yes Nausea / Vomiting: adequately controlled Pain: adequately controlled Airway Patency, RR, SpO2: stable & adequate BP & HR: stable & adequate Hydration State: stable & adequate Anesthetic Complications: no major complications apparent
[2017-09-30] MEDS: HYDROmorphone HCL 0.5MG/ML 50 ML CASSETTE IV PRN ×4 (13:45→22:55)
[2017-09-30] MEDS: LACTATED RINGER'S 1000ML 1,000 ML IV SCH ×2 (15:00→21:49)
[2017-09-30] MEDS ORDERED: GLUCOSE 10 TABS/TUBE PO PRN (15:30)
[2017-09-30] MEDS ORDERED: GLUCAGON FOR INJ 1 MG VIAL SQ PRN (15:30)
[2017-09-30] MEDS ORDERED: DEXTROSE 50% 50 ML SYR IV PRN (15:30)
[2017-09-30] MEDS ORDERED: GLUCOSE 40% GEL 15 GM TUBE PO PRN (15:30)
[2017-09-30] MEDS ORDERED: FUROSEMIDE 20 MG TAB PO SCH (16:00)
--- NOTE | 2017-09-30 16:49 | Medical Consult ---
Consultation Date of Consultation: Sep 30, 2017. Attending Physician: Javier Vines D.O. History of Present Illness This is a 76yo M with a PMH of lumbar stenosis with neurogenic claudication, h/ o multiple DVTs/PE, DM II, HTN, HLD and BPH who is POD #0 s/p an elective lumbar decompression fusion of L4-S1. The patient initially presented with intractable back pain on Sep.21 and was admitted to the medicine service with an ortho consult. Due to patient's history of DVT and PE following an ankle fracture in June of this year, patient was taken off of Eliquis in preparation for back surgery. While being bridged on lovenox, patient was found to have a R LE DVT of the R superficial femoral vein. An IVC filter was placed by Dr. Perkins on 09/22. For insurance reasons, patient was was discharged and then readmitted for surgery today by Dr. Vines. Patient is doing well post-operatively. Denies any pain. Denies lightheadedness , headache, visual changes, CP, palpitations, SOB, abdominal pain, nausea, vomiting, calf pain or LE swelling. Past Medical/Surgical History Medical Problems: (1) BPH (benign prostatic hyperplasia) Status: Chronic (2) Diabetes mellitus, type II Status: Chronic (3) HLD (hyperlipidemia) Status: Chronic (4) HTN (hypertension) Status: Chronic (5) Lumbar stenosis with neurogenic claudication Status: Chronic Family History FH: heart disease FATHER FH: kidney cancer MOTHER Social History Smoking Status: Never Smoker Alcohol Use: none Drug Use: none Marital Status: single Housing Status: lives alone Occupation Status: retired Allergies Coded Allergies: Atorvastatin (Verified Adverse Reaction, Intermediate, Muscle pain, ) Simvastatin (Verified Adverse Reaction, Intermediate, Muscle pain, ) Home Medications Reported Home Medications Medications Dose Route/Sig Max Daily Dose Days Date Category Dose Instructions Eliquis (Apixaban) 5 Mg Tab 5 Mg PO BID 09/30/17 Reported Stopped prior to cardiac cath on September 15; unsure of exact stop date Milk Of Magnesia (Magnesium Hydroxide) 30 Ml Susp 30 Ml PO [id number] PRN 09/29/17 Reported Insta-Glucose (Dextrose (Diabetic Use)) 77.4 % Gel 1 Dose PO DAILY PRN 09/29/17 Reported Biscolax (Bisacodyl) 10 Mg Sup 1 Supp RE [id number] PRN 09/29/17 Reported Artificial Tears (Artificial Tear Solution) 1 Lina Lina 1 Drops OP Q4 PRN 09/29/17 Reported Lovenox (Enoxaparin Sodium) 120 Mg/0.8 Ml Inj 120 Mg SQ DAILY@1300 15 09/28/17 Rx Ciloxan 0.3% Oph (Ciprofloxacin Hcl (Ophth)) 0.3 % Oin 1 Appln OP TID 7 09/27/17 Rx Enema [id number] (Sodium Phosphates) 1 Tri Tri 132 Ml AL DAILY PRN 30 09/27/17 Rx Miralax (Polyethylene) 17 Gm Pow 17 Gm PO DAILY PRN 30 09/27/17 Rx Gardner 10MG/325MG (Acetaminophen/Hydrocodone Bitart) Tab 1-2 Tab PO Q4H PRN 09/27/17 Rx PRN PAIN Tylenol (Acetaminophen) 650 Mg Supp 650 Mg AL Q4 PRN 09/21/17 Reported use if unable to take po Tylenol (Acetaminophen) 325 Mg Tab 650 Mg PO Q4 PRN 09/21/17 Reported dont exceed 3000mg/24hr Flomax (Tamsulosin Hcl) 0.4 Mg Cap 0.4 Mg PO QAM 09/21/17 Reported Requip (Ropinirole HCl) 5 Mg Tab 5 Mg PO HS 09/21/17 Reported Prilosec (Omeprazole) 20 Mg Capcr 20 Mg PO QAM 09/21/17 Reported Glucophage (Metformin Hcl) 1,000 Mg Tab 1,000 Mg PO BID 09/21/17 Reported Lasix (Furosemide) 20 Mg Tab 20 Mg PO QAM 09/21/17 Reported Glucotrol (Glipizide) 5 Mg Tab 5 Mg PO BID 09/21/17 Reported Potassium Chloride Er (Potassium Chloride) 10 Meq Cap 10 Meq PO QAM 09/21/17 Reported Pravachol (Pravastatin Sodium) 20 Mg Tab 20 Mg PO QD@1700 09/21/17 Reported Toprol-Xl (Metoprolol Succinate) 25 Mg Tabcr 25 Mg PO QAM 09/21/17 Reported Colace (Docusate Sodium) 100 Mg Cap 100 Mg PO BID 09/21/17 Reported Zestril (Lisinopril) 5 Mg Tab 2.5 Mg PO QAM 09/21/17 Reported Current Inpatient Medications Current Inpatient Medications Medications (Trade) Dose Ordered Sig/Sarbjit Route Start Time Stop Time Status Last Admin Dose Admin Dexamethasone Sodium Phosphate 6 mg/Syringe 1.5 ml @ 1 mls/min Q8H IV 09/30/17 20:00 10/01/17 12:02 Promethazine HCl 12.5 mg/Sodium Chloride 50.5 ml @ 202 mls/hr Q6H PRN IV 09/30/17 12:00 10/30/17 11:59 Ondansetron HCl (Zofran Inj) 4 mg Q6H PRN IV 09/30/17 12:00 10/30/17 11:59 Metoclopramide HCl (Reglan Inj) 10 mg Q6H PRN IV 09/30/17 12:00 10/30/17 11:59 Lorazepam (Ativan Tab) 0.5 mg Q8H PRN PO 09/30/17 12:00 10/30/17 11:59 Lorazepam 0.5 mg/ Syringe 1 ml @ 1 mls/min Q8H PRN IV 09/30/17 12:00 10/30/17 11:59 Pneumococcal Polysaccharide Vaccine 1 ea PRN PRN N/A 09/30/17 12:00 10/30/17 11:59 Influenza Virus Vacc Triv Types A&B 1 ea PRN PRN N/A 09/30/17 12:00 10/30/17 11:59 Polyethylene (Miralax Powder Packet) 17 gm Q6 PO 10/02/17 06:00 11/01/17 05:59 Bisacodyl (Dulcolax Supp) 10 mg DAILY PRN AL 09/30/17 12:00 10/30/17 11:59 Magnesium Hydroxide (Milk Of Magnesia Susp) 30 ml DAILY PRN PO 09/30/17 12:00 10/30/17 11:59 Hydromorphone HCl (Dilaudid Inj) 0.5 mg Q3H PRN IV 10/01/17 06:00 10/15/17 05:59 Oxycodone HCl (Roxicodone Immediate Rel Tab) 5-10mg prn moderate to sev... Q4H PRN PO 10/01/17 06:00 10/15/17 05:59 Cefazolin Sodium 2000 mg/Syringe 10 ml @ 2.5 mls/min Q8H IV 09/30/17 20:00 10/01/17 04:03 Lactated Ringer's 1,000 ml @ 150 mls/hr Q6H40M IV 09/30/17 15:00 10/30/17 14:59 Acetaminophen (Tylenol Tab) 1,000 mg Q8H PRN PO 09/30/17 12:00 10/30/17 11:59 Acetaminophen 100 ml @ 400 mls/hr Q8H PRN IV 09/30/17 12:00 10/30/17 11:59 Naloxone HCl (Narcan Inj) 0.1 mg Q5M PRN IV 09/30/17 12:00 10/30/17 11:59 Senna/Docusate Sodium (Senokot S Tab) 2 tab HS PO 09/30/17 21:00 10/30/17 20:59 Sodium Biphosphate/ Sodium Phosphate (Fleet Enema) 132 ml ONE PRN AL 09/30/17 12:00 10/30/17 11:59 Hydroxyzine HCl (Vistaril Tab) 25 mg Q8H PRN PO 09/30/17 12:00 10/30/17 11:59 Al Hydroxide/Mg Hydroxide (Maalox Susp) 30 ml Q6H PRN PO 09/30/17 12:00 10/30/17 11:59 Famotidine (Pepcid Tab) 20 mg Q12 PRN PO 09/30/17 12:00 10/30/17 11:59 Diphenhydramine HCl (Benadryl Cap) 25 mg Q6H PRN PO 09/30/17 12:00 10/30/17 11:59 Miscellaneous Information (Discontinue HUMAN RESOURCES RECEPTIONIST) 1 ea TODAY@0600 N/A 10/01/17 06:00 10/01/17 06:01 Naloxone HCl (Narcan Inj) 0.1 mg Q5M PRN IV 09/30/17 12:00 10/01/17 06:00 Hydromorphone HCl (Dilaudid Md Physician Dermatologist) 25 mg PRN PRN IV 09/30/17 12:00 10/01/17 06:00 09/30/17 15:02 25 MG Sodium Chloride 1,000 ml @ 15 mls/hr Q24H IV 09/30/17 11:55 10/01/17 06:00 Acetaminophen (Tylenol Supp) 650 mg Q4 PRN AL 09/30/17 12:00 10/30/17 11:59 Acetaminophen (Tylenol Tab) 650 mg Q4 PRN PO 09/30/17 12:00 10/30/17 11:59 Ciprofloxacin HCl (Ciloxan 0.3% Op Oint) 1 appln TID OP 09/30/17 21:00 10/10/17 20:59 Docusate Sodium (coLACE CAP) 100 mg BID PO 09/30/17 21:00 10/30/17 20:59 Lisinopril (Zestril Tab) 2.5 mg QAM PO 09/30/17 15:00 10/30/17 14:59 Metoprolol Succinate (Toprol Xl Tab) 25 mg QAM PO 09/30/17 15:00 10/30/17 14:59 Pravastatin Sodium (Pravachol Tab) 20 mg QD@1700 PO 09/30/17 17:00 10/30/17 16:59 Ropinirole HCl (Requip Tab) 5 mg HS PO 09/30/17 21:00 10/30/17 20:59 Tamsulosin HCl (Flomax Cap) 0.4 mg QAM PO 10/01/17 15:00 10/31/17 14:59 Pantoprazole Sodium (Protonix Tab) 40 mg QAM PO 09/30/17 15:00 10/30/17 14:59 Hydromorphone HCl (Dilaudid Inj) 1 mg Q3H PRN IV 10/01/17 06:00 10/15/17 05:59 Insulin Aspart (novoLOG ASPART) SLIDING SCALE If C... ACHS SC 09/30/17 17:15 10/30/17 17:14 Glucose (Glucose 40% Gel) 15-30 GRAMS 15 GRAMS... UD PRN PO 09/30/17 15:30 10/30/17 15:29 Glucose (Glucose Chew Tab) 4-8 Tablets 4 Tabl... UD PRN PO 09/30/17 15:30 10/30/17 15:29 Dextrose (Dextrose 50% 50ML Syringe) 25-50ML OF 50% DW IV FOR... UD PRN IV 09/30/17 15:30 10/30/17 15:29 Glucagon (Glucagon Inj) 1 mg UD PRN SQ 09/30/17 15:30 10/30/17 15:29 Review of Systems Ten systems reviewed and negative except as noted in the HPI. Physical Exam Date Time Temp Pulse Resp B/P (MAP) Pulse Ox O2 Delivery O2 Flow Rate FiO2 09/30/17 15:54 36.3 62 18 116/69 (85) 100 Nasal Cannula 4.0 09/30/17 14:54 55 16 122/69 (86) 100 09/30/17 14:15 36.4 58 18 123/69 (87) 100 Nasal Cannula 4.0 09/30/17 13:45 36.4 56 18 111/64 (80) 99 Nasal Cannula 4.0 09/30/17 13:45 100 Mask 4.0 09/30/17 13:11 36.5 122/77 09/30/17 13:10 63 18 100 09/30/17 13:10 66 18 09/30/17 13:06 127/74 09/30/17 13:05 57 14 09/30/17 13:05 58 14 96 09/30/17 13:00 61 16 132/82 98 09/30/17 13:00 62 16 09/30/17 12:55 72 17 09/30/17 12:55 72 17 135/75 97 09/30/17 12:50 68 17 09/30/17 12:50 67 17 116/81 100 09/30/17 12:45 70 17 118/70 98 09/30/17 12:45 70 17 09/30/17 12:41 124/69 09/30/17 12:40 70 16 100 09/30/17 12:40 68 16 09/30/17 12:35 70 15 131/83 100 09/30/17 12:35 69 15 09/30/17 12:30 77 16 134/78 100 09/30/17 12:30 77 16 09/30/17 12:25 75 18 139/76 100 09/30/17 12:25 81 18 09/30/17 12:21 120/65 09/30/17 12:20 36.4 72 16 120/65 96 Mask 7 09/30/17 08:20 36.5 63 22 138/76 98 Room Air General Appearance: WD/WN, no apparent distress Head: normocephalic, atraumatic Eyes: normal inspection, PERRL, sclerae normal (conjuctiva normal ) ENT: normal ENT inspection Neck: supple, no adenopathy, no JVD Respiratory/Chest: chest non-tender, lungs clear, normal breath sounds, no respiratory distress, no accessory muscle use Cardiovascular: regular rate, rhythm, no murmur, normal peripheral pulses Abdomen/GI: normal bowel sounds, non tender, soft, no organomegaly Genitourinary - Male: + pertinent finding (Callejas in place ) Back: + pertinent finding (Back with dressing in place) Extremities/Musculoskelatal: normal inspection, no calf tenderness, no pedal edema, non-tender Neurologic/Psych: no motor/sensory deficits, alert, normal mood/affect, oriented x 3 Skin: normal color, warm/dry Laboratory Results Last 24 Hours Test 09/30/17 08:15 09/30/17 12:25 09/30/17 14:36 Bedside Glucose 153 mg/dl 234 mg/dl 267 mg/dl Assessment & Plan This is a 76yo M with a PMH of lumbar stenosis with neurogenic claudication, h/ o multiple DVTs/PE, DM II, HTN, HLD and BPH who is POD #0 s/p an elective lumbar decompression fusion of L4-S1. S/p lumbar decompression fusion of L4-S1: -Pt is doing well post-operatively POD#[address] Vines -Per ortho for pain control, wound care, anticoagulation and activities -Monitor H&H, continue incentive spirometry, PT/OT when appropriate H/o DVT/PE: -IVC filter in place -Per ortho for restarting anticoagulation post-operatively HTN: -Normotensive -Hold lasix overnight while receiving post-op IVF -Continue home lisinopril, metoprolol DM II: -Hgb a1c of 7.9 on 09/20/17 -Hold home oral agents -SSI while in-patient -Add basal control if indicated -BSG checks AC HS HLD: -Continue home prevastatin BPH: -Continue home tamsulosin DVT Ppx: Per ortho Code status: FULL PCP: Baljinder Dispo: Per ortho Patient seen in collaboration with Dr. Khan. Please see addendum. Thank you for this consultation. We will follow the patient with you during their hospital stay. You can [facility] a [facility]/06 via pager @ . Addendum Attending physician Dr. Khan I have seen and assessed the patient with JUANIS Soriano and agree with the above assessment and plan and in addition would obtain pharmacy consultation for diabetes management as patient's 5PM blood sugars was 362
[2017-09-30] MEDS: METOPROLOL SUCC 25MG EXT REL TAB PO SCH (17:01)
[2017-09-30] MEDS: LISINOPRIL 5 MG TAB PO SCH (17:02)
[2017-09-30] MEDS: PANTOprazole SOD 40 MG TAB PO SCH (17:02)
[2017-09-30] MEDS: PRAVASTATIN SOD 20 MG TAB PO SCH (17:03)
[2017-09-30] MEDS ORDERED: INSULIN ASPART 100 UNITS/ML 3 ML PEN SC SCH (17:15)
[2017-09-30] MEDS ORDERED: PHARMACY GLYCEMIC MGMT CONSULT PRN (18:00)
[2017-09-30] MEDS ORDERED: INSULIN HUMAN REGULAR PER UNIT 10 UNITS in SYRINGE 9.9 ML IV ONE (18:30)
[2017-09-30 18:35] LABS: HEMATOCRIT 35.1 % (42-52); MEAN CELL VOLUME 86.2 fL (80-100); MEAN CORPUSCULAR HEMOGLOBIN 30.5 pg (25-34); MEAN PLATELET VOLUME 10.2 fL (7.4-10.4); PLATELET COUNT 193 K/uL (130-400); RED BLOOD COUNT 4.07 M/uL (4.7-6.1); WHITE BLOOD COUNT 10.72 K/uL (4.8-10.8)
[2017-09-30 18:48] LABS: MEAN CORPUSCULAR HGB CONC 35.3 g/dl (32-36)
[2017-09-30] MEDS ORDERED: INSULIN GLARGINE SOLOSTAR 100 UNITS/ML 3 ML PEN SC ONE (19:00)
[2017-09-30 19:03] LABS: ALB/GLOB RATIO 1.1 (0.9-2); BUN/CREATININE RATIO 17.7 (10-20); CALCIUM 8.7 mg/dl (8.5-10.1); CREATININE 1.35 mg/dl (0.60-1.40); POTASSIUM 4.9 mmol/L (3.5-5.1)
[2017-09-30] MEDS ORDERED: INSULIN IV INFUSION PROTOCOL STA (19:10)
[2017-09-30] MEDS ORDERED: SEVERE STRESS LEVEL ONE (19:15)
[2017-09-30] MEDS ORDERED: INSULIN PROTOCOL GOAL RANGE ONE (19:15)
[2017-09-30 19:28] LABS: BETA-HYDROXYBUTYRATE 1.63 mg/dL (0.2-2.81)
[2017-09-30] MEDS ORDERED: NURSING DECISION MEDICATION ORDER SCH (19:30)
[2017-09-30] MEDS ORDERED: COUGH DROP (SUGAR FREE) LOZ 24 LOZ/1 BOX ONE (19:45)
--- NOTE | 2017-09-30 19:50 | Pharmacy Progress Note ---
Glycemic Control Intl Consult Date of Service Sep 30, 2017. Scope Glycemic Pharmacist consulted by Keyona Soriano on 09/30/17 for glycemic control and to write orders per [facility] inpatient glycemic control protocol Objective Weight (Kilograms): 86.500 Accuchecks BSG (last 24hrs): Test 09/30/17 08:15 09/30/17 12:25 09/30/17 14:36 09/30/17 17:05 Bedside Glucose 153 mg/dl (70-99) 234 mg/dl (70-99) 267 mg/dl (70-99) 362 mg/dl (70-99) Test 09/30/17 18:24 09/30/17 19:20 Random Glucose 408 mg/dl (70-99) Bedside Glucose 317 mg/dl (70-99) Laboratory Data (last 24hrs) Test 09/30/17 18:24 Anion Gap 12.0 mmol/L BUN/Creatinine Ratio 17.7 Blood Urea Nitrogen 24 mg/dl Creatinine 1.35 mg/dl Potassium Level 4.9 mmol/L Sodium Level 132 mmol/L White Blood Count 10.72 K/uL HbA1c Item Value Date Time Hemoglobin A1c 7.9 % H 09/20/177 Item Value Date Time Estimated Average Glucose 180 mg/dl 09/20/172346 Recent Pertinent Medications Outpatient Anti-diabetic Regimen: * Metformin 1000 mg PO BID * Glipizide 5 mg PO BID * A1c = 7.9 % 09/20/17 The patient is currently receiving: * Correctional Insulin: Novolog Correction per scale ACHS Goal Range: Low 120 mg/dL - High 160 mg/dL Correction Factor: 25 mg/dL/unit * Prandial insulin: Per carb ratio of 1 unit per 15 grams CHO consumed Risk Factors for Insulin Resistance: * Steroids: Decadron intraop (12 mg), 6 mg IV q8 hrs post-op * Recent Surgery POD #0 s/p spinal surgery * Diet: Type 2 diabetic Assessment & Plan ASSESSMENT: * 76 y/o male with history of type 2 diabetes * Baseline BSG's climbed during POD #0 after only one dose of IV dexamethasone, last reported BSG 362 mg/dL * He is scheduled to receive the usual 3 doses of post op dexamethasone, which will continue to elevate his BSG's * Patient received one dose of Novolog 13 units correction with dinner and an additional 10 units of Regular insulin by IV push * Will initiate an initial dose of SQ Lantus insulin, 44 units and in addition will initiate a regular insulin drip * Nursing is aware and will initiate insulin infusion PLAN FOR INPATIENT GLYCEMIC CONTROL: * Starting IV insulin infusion per severe stress protocol * Goal Range 100 - 180 mg/dl * Holding outpatient oral diabetes medications * Basal insulin with LANTUS 44 units SQ at approximately 1945 hours, will calculate ongoing Lantus dose in tomorrow morning * Correctional Insulin with NOVOLOG * Nutritional / Prandial insulin per carb ratio of 1 unit per [] grams CHO consumed as calculated while receiving the insulin infusion * Will continue IV insulin overnight with plan to convert to basal/bolus regimen tomorrow * Please note that the plan above was derived based on current level of insulin resistance and hospital stress. These recommendations are appropriate for inpatient admission only. Plan of care upon discharge will need to be reassessed to avoid potential outpatient hypo/hyperglycemia. Thank you.
[2017-09-30] MEDS: INSULIN REGULAR 250 UNITS in SODIUM CHLORIDE 0.9% 250ML 250 ML IV SCH ×4 (19:53→23:38)
[2017-09-30] MEDS: DEXAMETHASONE INJ 6 MG in SYRINGE 0 ML IV SCH (19:56)
[2017-09-30] MEDS: CEFAZOLIN IV 2,000 MG in SYRINGE 0 ML IV SCH (19:56)
[2017-09-30] MEDS ORDERED: COUGH DROP (SUGAR FREE) LOZ 24 LOZ/1 BOX PO PRN (20:15)
[2017-09-30] MEDS: INSULIN ASPART 100 UNITS/ML 3 ML PEN SC SCH (21:00)
[2017-09-30] MEDS: DOCUSATE SODIUM/SENNA 50/8.6MG TAB PO SCH (21:08)
[2017-09-30] MEDS: DOCUSATE SODIUM 100 MG CAP PO SCH (21:08)
[2017-09-30] MEDS: ROPINIROLE HCL 5 MG TAB PO SCH (21:08)
[2017-09-30] MEDS: CIPROFLOXACIN HCL 3.5 GM TUBE OP SCH (21:14)
[2017-10-01] MEDS: CEFAZOLIN IV 2,000 MG in SYRINGE 0 ML IV SCH (04:03)
[2017-10-01] MEDS: DEXAMETHASONE INJ 6 MG in SYRINGE 0 ML IV SCH ×2 (04:04→11:52)
[2017-10-01] MEDS: LACTATED RINGER'S 1000ML 1,000 ML IV SCH (04:11)
[2017-10-01] MEDS ORDERED: NURSING DECISION MEDICATION ORDER SCH (05:45)
[2017-10-01] MEDS ORDERED: HYDROmorphone INJ 0.5 MG/0.5 ML SYR IV PRN (06:00)
[2017-10-01] MEDS ORDERED: HYDROmorphone INJ 1 MG/ML SYR IV PRN (06:00)
[2017-10-01] MEDS ORDERED: DC PCA SCH (06:00)
[2017-10-01] MEDS ORDERED: OXYCODONE HCL IR 5 MG TAB (IMMEDIATE RELEASE) PO PRN (06:00)
[2017-10-01 06:14] LABS: COMPLETE YES; HEMATOCRIT 32.2 % (42-52); IG% 0.3 %; LYMPH % 6.3 %; LYMPH ABS # 0.61 K/uL (1.2-3.4); MEAN CELL VOLUME 86.1 fL (80-100); MEAN CORPUSCULAR HEMOGLOBIN 28.1 pg (25-34); MEAN CORPUSCULAR HGB CONC 32.6 g/dl (32-36); MEAN PLATELET VOLUME 10.5 fL (7.4-10.4); MONO % 5.6 %; NEUT % 87.8 %; PLATELET COUNT 207 K/uL (130-400); RED BLOOD COUNT 3.74 M/uL (4.7-6.1)
[2017-10-01 06:57] LABS: BUN/CREATININE RATIO 20.6 (10-20); CALCIUM 8.8 mg/dl (8.5-10.1); POTASSIUM 4.4 mmol/L (3.5-5.1)
[2017-10-01 07:39] VITALS: BP 122/58; PULSE 56; TEMP 36.7; O2SAT 95
[2017-10-01] MEDS ORDERED: INSULIN GLARGINE SOLOSTAR 100 UNITS/ML 3 ML PEN SC SCH ×2 (08:00→21:00)
[2017-10-01] MEDS: METOPROLOL SUCC 25MG EXT REL TAB PO SCH (08:31)
[2017-10-01] MEDS: LISINOPRIL 5 MG TAB PO SCH (08:32)
[2017-10-01] MEDS: CIPROFLOXACIN HCL 3.5 GM TUBE OP SCH ×5 (08:32→20:52)
[2017-10-01] MEDS: DOCUSATE SODIUM 100 MG CAP PO SCH ×2 (08:33→20:52)
[2017-10-01] MEDS: PANTOprazole SOD 40 MG TAB PO SCH (08:33)
[2017-10-01] MEDS: INSULIN ASPART 100 UNITS/ML 3 ML PEN SC SCH ×4 (08:36→21:36)
[2017-10-01] MEDS ORDERED: NURSING VERBAL MED ORDER ONE ×2 (09:00→10:00)
[2017-10-01 09:07] VITALS: O2SAT 95
[2017-10-01] MEDS: INSULIN REGULAR 250 UNITS in SODIUM CHLORIDE 0.9% 250ML 250 ML IV SCH ×3 (10:05→13:45)
[2017-10-01] MEDS ORDERED: HYDROCODONE/ACETAMI 10/325 TAB ONE (10:06)
[2017-10-01] MEDS: TAMSULOSIN HCL 0.4 MG CAP PO SCH (10:08)
--- NOTE | 2017-10-01 10:18 | Pharmacy Progress Note ---
Pharmacy Glycemic Short Note 2 Date of Service Oct 01, 2017. OUTPATIENT ANTIDIABETIC REGIMEN: * Metformin 1,000mg PO BIDM * Glipizide 5mg PO BIDM * A1c = 7.9% on 09/20/17 ASSESSMENT: * POD#0: Pt with SEVERE hyperglycemia post op secondary to held oral agents pre -op, stress from surgery, and high dose IV dexamethasone * BSGs 153, 234, 256, 408, 362 ...etc * IV insulin infusion initiated for severe hyperglycemia * High stress weight based SQ regimen initiated for steroid induced hyperglycemia and oral agents on hold * POD#1: BSGs much improved with SQ + IV insulin regimen to cover steroid induced hyperglycemia * Last dose of dexamethasone will be today @ 1200, expect hyperglycemia to persist until this evening * Will continue high dose SQ insulin regimen for high dose steroids and taper regimen this evening based on BSG trends. * Will taper off of insulin infusion after last dose of IV dexamethasone given * POD#2: Will re-assess regimen based on BSGs, resume oral antidiabetic agents. PLAN FOR INPATIENT GLYCEMIC CONTROL: * Hold outpatient oral diabetes medications * Will resume POD#2 after PO insulin and renal function assessed * Basal insulin: weight based high stress dosing * Lantus 40 units SQ x 1 dose this morning * Possible additional dose of Lantus this evening if BSG > 180 mg/dl * Bolus insulin * NovoLog per scale ACHS or Q6hrs while NPO after IV insulin infusion d/c * Goal Range: Low 110 mg/dL - High 140 mg/dL * Correction Factor: 20 mg/dL/unit * Nutritional / Prandial insulin per carb ratio of 1 unit per 6 grams CHO consumed * Will taper off of IV insulin infusion after last dose of dexamethasone given at 1200 today.
[2017-10-01 11:45] VITALS: BP 100/60; PULSE 56; TEMP 36.6; O2SAT 96
--- NOTE | 2017-10-01 14:24 | Progress Note ---
Progress Note Date of Service Oct 01, 2017. Progress Note Patient is postop day #1. Back pain is controlled. Still struggling with leg weakness but improvement in leg pain. On exam is interior bedside has voluntary motion of his leg sensory symmetric and intact. He does appear comfortable. Assessment status post lumbar depression fusion replant this time we will continue with physical therapy as tolerated. Clearly he is a candidate for rehabilitation secondary to marked disuse and subsequent leg weakness. He understands agrees.
[2017-10-01 14:56] VITALS: BP 98/58; PULSE 55; TEMP 36.5; O2SAT 95
[2017-10-01] MEDS ORDERED: TAMSULOSIN HCL 0.4 MG CAP PO SCH (15:00)
[2017-10-01 15:15] VITALS: O2SAT 95
[2017-10-01 15:55] VITALS: Ht 185.4 cm; Wt 86.5 kg
[2017-10-01] MEDS: PRAVASTATIN SOD 20 MG TAB PO SCH (17:14)
--- NOTE | 2017-10-01 18:38 | Progress Note ---
Medicine Progress Note Date & Time of Visit: Oct 01, 2017 at 14:31. Subjective Pt was seen and examined Sitting in chair with no acute distress Pt said that he feels tender, but trying not to take any pain med Denies any chest pain, palpitation, dizziness and SOB Objective Last 8 Hrs Date Time Temp Pulse Resp B/P (MAP) Pulse Ox O2 Delivery O2 Flow Rate FiO2 10/01/17 15:15 95 Room Air 10/01/17 14:56 36.5 55 18 98/58 (71) 95 Room Air 10/01/17 11:45 36.6 56 16 100/60 (73) 96 Room Air Physical Exam: General- no acute distress Head- atraumatic Eyes- PERRL, EOMI ENT- oropharynx clear Neck- no JVD Lungs- clear to auscultation Heart- regular rhythm Abdomen- normal bowel sounds, soft Extremities- no calf tenderness Neuro- alert, oriented x 3; PERRL, EOMI Skin- warm & dry Laboratory Results: Last 24 Hours Test 09/30/17 19:20 09/30/17 21:02 09/30/17 22:10 09/30/17 23:04 Bedside Glucose 317 mg/dl 228 mg/dl 207 mg/dl 139 mg/dl Test 10/01/17 00:01 10/01/17 01:05 10/01/17 02:03 10/01/17 04:00 Bedside Glucose 128 mg/dl 110 mg/dl 125 mg/dl 126 mg/dl Test 10/01/17 05:47 10/01/17 06:02 10/01/17 08:25 10/01/17 10:30 White Blood Count 9.70 K/uL Red Blood Count 3.74 M/uL Hemoglobin 10.5 g/dL Hematocrit 32.2 % Mean Corpuscular Volume 86.1 fL Mean Corpuscular Hemoglobin 28.1 pg Mean Corpuscular Hemoglobin Concent 32.6 g/dl Platelet Count 207 K/uL Mean Platelet Volume 10.5 fL Neutrophils (%) (Auto) 87.8 % Lymphocytes (%) (Auto) 6.3 % Monocytes (%) (Auto) 5.6 % Eosinophils (%) (Auto) 0.0 % Basophils (%) (Auto) 0.0 % Neutrophils # (Auto) 8.52 K/uL Lymphocytes # (Auto) 0.61 K/uL Monocytes # (Auto) 0.54 K/uL Eosinophils # (Auto) 0.00 K/uL Basophils # (Auto) 0.00 K/uL RDW Standard Deviation 44.7 fL RDW Coefficient of Variation 14.3 % Immature Granulocyte % (Auto) 0.3 % Immature Granulocyte # (Auto) 0.03 K/uL Sodium Level 136 mmol/L Potassium Level 4.4 mmol/L Chloride Level 100 mmol/L Carbon Dioxide Level 27 mmol/L Anion Gap 9.0 mmol/L Blood Urea Nitrogen 21 mg/dl Creatinine 1.00 mg/dl Est Creatinine Clear Calc Drug Dose 71.0 ml/min Estimated GFR () 84.4 Estimated GFR (Non- 72.8 BUN/Creatinine Ratio 20.6 Random Glucose 110 mg/dl Calcium Level 8.8 mg/dl Bedside Glucose 110 mg/dl 112 mg/dl 185 mg/dl Test 10/01/17 11:38 10/01/17 13:00 10/01/17 13:34 10/01/17 14:35 Bedside Glucose 147 mg/dl 181 mg/dl 163 mg/dl 151 mg/dl Test 10/01/17 17:19 Bedside Glucose 160 mg/dl Assessment & Plan This is a 76yo M with a PMH of lumbar stenosis with neurogenic claudication, h/ o multiple DVTs/PE, DM II, HTN, HLD and BPH who is POD #0 s/p an elective lumbar decompression fusion of L4-S1. LOW BACK PAIN S/p DAY #1 lumbar decompression fusion of L4-S1 performed by dr. Vines Continue pain control as per ortho Incentive spirometry Monitor H/H PT/OT H/o DVT/PE: IVC filter in place Per ortho for restarting anticoagulation post-operatively HTN: Control Continue home lisinopril, metoprolol Will resume lasix tomorrow DM II: Hgb a1c of 7.9 on 09/20/17 Hold home oral agents SSI while in-patient Add basal control if indicated BSG checks AC HS HLD: Continue home prevastatin BPH: Continue home tamsulosin DVT Ppx: Per ortho CODE STATUS FULL CODE Current Inpatient Medications: Current Inpatient Medications Medications (Trade) Dose Ordered Sig/Sarbjit Route Start Time Stop Time Status Last Admin Dose Admin Promethazine HCl 12.5 mg/Sodium Chloride 50.5 ml @ 202 mls/hr Q6H PRN IV 09/30/17 12:00 10/30/17 11:59 Ondansetron HCl (Zofran Inj) 4 mg Q6H PRN IV 09/30/17 12:00 10/30/17 11:59 Metoclopramide HCl (Reglan Inj) 10 mg Q6H PRN IV 09/30/17 12:00 10/30/17 11:59 Lorazepam (Ativan Tab) 0.5 mg Q8H PRN PO 09/30/17 12:00 10/30/17 11:59 Lorazepam 0.5 mg/ Syringe 1 ml @ 1 mls/min Q8H PRN IV 09/30/17 12:00 10/30/17 11:59 Pneumococcal Polysaccharide Vaccine 1 ea PRN PRN N/A 09/30/17 12:00 10/30/17 11:59 Influenza Virus Vacc Triv Types A&B 1 ea PRN PRN N/A 09/30/17 12:00 10/30/17 11:59 Polyethylene (Miralax Powder Packet) 17 gm Q6 PO 10/02/17 06:00 11/01/17 05:59 Bisacodyl (Dulcolax Supp) 10 mg DAILY PRN [place] 09/30/17 12:00 10/30/17 11:59 Magnesium Hydroxide (Milk Of Magnesia Susp) 30 ml DAILY PRN PO 09/30/17 12:00 10/30/17 11:59 Hydromorphone HCl (Dilaudid Inj) 0.5 mg Q3H PRN IV 10/01/17 06:00 10/15/17 05:59 Acetaminophen (Tylenol Tab) 1,000 mg Q8H PRN PO 09/30/17 12:00 10/30/17 11:59 Acetaminophen 100 ml @ 400 mls/hr Q8H PRN IV 09/30/17 12:00 10/30/17 11:59 Naloxone HCl (Narcan Inj) 0.1 mg Q5M PRN IV 09/30/17 12:00 10/30/17 11:59 Senna/Docusate Sodium (Senokot S Tab) 2 tab HS PO 09/30/17 21:00 10/30/17 20:59 09/30/17 21:08 2 TAB Sodium Biphosphate/ Sodium Phosphate (Fleet Enema) 132 ml ONE PRN [place] 09/30/17 12:00 10/30/17 11:59 Hydroxyzine HCl (Vistaril Tab) 25 mg Q8H PRN PO 09/30/17 12:00 10/30/17 11:59 Al Hydroxide/Mg Hydroxide (Maalox Susp) 30 ml Q6H PRN PO 09/30/17 12:00 10/30/17 11:59 Famotidine (Pepcid Tab) 20 mg Q12 PRN PO 09/30/17 12:00 10/30/17 11:59 Diphenhydramine HCl (Benadryl Cap) 25 mg Q6H PRN PO 09/30/17 12:00 10/30/17 11:59 Acetaminophen (Tylenol Supp) 650 mg Q4 PRN [place] 09/30/17 12:00 10/30/17 11:59 Acetaminophen (Tylenol Tab) 650 mg Q4 PRN PO 09/30/17 12:00 10/30/17 11:59 Ciprofloxacin HCl (Ciloxan 0.3% Op Oint) 1 appln TID OP 09/30/17 21:00 10/10/17 20:59 09/30/17 21:14 1 APPLN Docusate Sodium (coLACE CAP) 100 mg BID PO 09/30/17 21:00 10/30/17 20:59 10/01/17 08:33 100 MG Lisinopril (Zestril Tab) 2.5 mg QAM PO 09/30/17 15:00 10/30/17 14:59 10/01/17 08:32 2.5 MG Metoprolol Succinate (Toprol Xl Tab) 25 mg QAM PO 09/30/17 15:00 10/30/17 14:59 09/30/17 17:01 25 MG Pravastatin Sodium (Pravachol Tab) 20 mg QD@1700 PO 09/30/17 17:00 10/30/17 16:59 10/01/17 17:14 20 MG Ropinirole HCl (Requip Tab) 5 mg HS PO 09/30/17 21:00 10/30/17 20:59 09/30/17 21:08 5 MG Pantoprazole Sodium (Protonix Tab) 40 mg QAM PO 09/30/17 15:00 10/30/17 14:59 10/01/17 08:33 40 MG Hydromorphone HCl (Dilaudid Inj) 1 mg Q3H PRN IV 10/01/17 06:00 10/15/17 05:59 Glucose (Glucose 40% Gel) 15-30 GRAMS 15 GRAMS... UD PRN PO 09/30/17 15:30 10/30/17 15:29 Glucose (Glucose Chew Tab) 4-8 Tablets 4 Tabl... UD PRN PO 09/30/17 15:30 10/30/17 15:29 Dextrose (Dextrose 50% 50ML Syringe) 25-50ML OF 50% DW IV FOR... UD PRN IV 09/30/17 15:30 10/30/17 15:29 Glucagon (Glucagon Inj) 1 mg UD PRN SQ 09/30/17 15:30 10/30/17 15:29 Miscellaneous Information (Consult Glycemic Management Pharmacy) 1 ea UD PRN N/A 09/30/17 18:00 10/30/17 17:59 Menthol (Nice Katelyn) 1 katelyn PRN PRN PO 09/30/17 20:15 10/30/17 20:14 Tamsulosin HCl (Flomax Cap) 0.4 mg QAM PO 10/01/17 09:00 10/31/17 08:59 10/01/17 10:08 0.4 MG Metformin HCl (Glucophage Tab) 1,000 mg BIDM PO 10/02/17 08:30 11/01/17 08:29 Insulin Glargine (Lantus Solostar Pen) SEE PROTOCOL TEXT 10/01/17@2100 [place] 10/01/17 21:00 10/01/17 21:01 Acetaminophen/ Hydrocodone Bitart ([place] 10/325 Tab) 1 tab Q4H PRN PO 10/01/17 10:45 10/15/17 10:44 Insulin Aspart (novoLOG ASPART) SLIDING SCALE [facility] [place] 10/01/17 17:15 10/31/17 17:14
[2017-10-01] MEDS: ROPINIROLE HCL 5 MG TAB PO SCH (20:52)
[2017-10-01] MEDS: DOCUSATE SODIUM/SENNA 50/8.6MG TAB PO SCH (20:53)
[2017-10-01] MEDS: HYDROCODONE/ACETAMI 10/325 TAB PO PRN (20:54)
[2017-10-01 23:55] VITALS: BP 104/61; PULSE 58; TEMP 36.4; O2SAT 96
[2017-10-02] MEDS: POLYETHYLENE (MIRALAX) 17 GM PACK PO SCH ×4 (06:17→23:25)
[2017-10-02 07:20] LABS: HEMATOCRIT 30.2 % (42-52); MEAN CELL VOLUME 86.3 fL (80-100); MEAN CORPUSCULAR HGB CONC 34.8 g/dl (32-36); MEAN PLATELET VOLUME 10.6 fL (7.4-10.4); PLATELET COUNT 189 K/uL (130-400); WHITE BLOOD COUNT 7.84 K/uL (4.8-10.8)
[2017-10-02 07:41] VITALS: BP 118/68; PULSE 64; TEMP 36.6; O2SAT 94
[2017-10-02] MEDS: METFORMIN HCL 500 MG TAB PO SCH ×2 (08:57→18:19)
[2017-10-02] MEDS: CIPROFLOXACIN HCL 3.5 GM TUBE OP SCH ×3 (08:57→21:26)
[2017-10-02] MEDS: PANTOprazole SOD 40 MG TAB PO SCH (08:58)
[2017-10-02] MEDS: TAMSULOSIN HCL 0.4 MG CAP PO SCH (08:58)
[2017-10-02] MEDS: DOCUSATE SODIUM 100 MG CAP PO SCH ×2 (08:58→21:44)
[2017-10-02] MEDS: LISINOPRIL 5 MG TAB PO SCH (08:59)
[2017-10-02] MEDS: METOPROLOL SUCC 25MG EXT REL TAB PO SCH (08:59)
[2017-10-02] MEDS: INSULIN ASPART 100 UNITS/ML 3 ML PEN SC SCH ×4 (09:06→21:00)
[2017-10-02] MEDS: INSULIN GLARGINE SOLOSTAR 100 UNITS/ML 3 ML PEN SC SCH ×2 (09:07→21:00)
[2017-10-02] MEDS: HYDROCODONE/ACETAMI 10/325 TAB PO PRN ×4 (09:53→23:55)
--- NOTE | 2017-10-02 09:58 | Progress Note ---
Progress Note Date of Service Oct 02, 2017. Progress Note Patient's back pain is controlled. Again his right leg symptoms are markedly improved. Still struggling with some perception of weakness particularly left lower extremity. He does feel more encouraged today. On exam he demonstrates good strength testing right lower extremity again some persistent weakness to the left lower extremity this is not new. Assessment status post lumbar depression fusion replant this time will continue physical therapy as tolerated. Hoping for rehabilitation early next week.
--- NOTE | 2017-10-02 11:23 | Pharmacy Progress Note ---
Pharmacy Glycemic Short Note 2 Date of Service Oct 02, 2017. OUTPATIENT ANTIDIABETIC REGIMEN: * Metformin 1,000mg PO BIDM * Glipizide 5mg PO BIDM * A1c = 7.9% on 09/20/17 ASSESSMENT: * POD#0: * Pt with SEVERE hyperglycemia post op secondary to held oral agents pre-op, stress from surgery, and high dose IV dexamethasone * BSGs 153, 234, 256, 408, 362 ...etc * IV insulin infusion initiated for severe hyperglycemia * High stress weight based SQ regimen initiated for steroid induced hyperglycemia and oral agents on hold * Pt received 57 units of SQ insulin + IV insulin infusion * POD#1: * BSGs much improved with SQ + IV insulin regimen to cover steroid induced hyperglycemia * Last dose of dexamethasone @ 1200, hyperglycemia persisted until HS whenever IV insulin infusion was stopped around 1430. * High dose SQ insulin regimen for high dose steroids was utilized. * Pt received 86 units of SQ insulin + IV insulin infusion {until 1430} * POD#2: * AM fasting BSG in goal range with current basal insulin dosing. However, DXM effects should be diminished at this point. Will significantly taper regimen to prevent hypo. * Resume oral antidiabetic agents {metformin only - do not use glipizide for admission} Renal function stable and pt tolerating PO PLAN FOR INPATIENT GLYCEMIC CONTROL: * Resume outpatient metformin * Basal insulin: weight based low stress dosing * Lantus 8 units SQ BID * Bolus insulin: loosen parameters with the addition of oral agents and d/c steroids * NovoLog per scale ACHS or Q6hrs while NPO * Goal Range: Low 110 mg/dL - High 140 mg/dL * Correction Factor: 25 mg/dL/unit * Nutritional / Prandial insulin per carb ratio of 1 unit per 8 grams CHO consumed
[2017-10-02 15:46] VITALS: BP 112/68; PULSE 59; TEMP 36.5; O2SAT 96
[2017-10-02] MEDS: PRAVASTATIN SOD 20 MG TAB PO SCH (17:35)
--- NOTE | 2017-10-02 18:04 | Progress Note ---
Medicine Progress Note Date & Time of Visit: Oct 02, 2017 at 13:59. Subjective Pt was seen and examined Lying in bed with no distress Pt said that he feels ok Pain is controlled Denies any chest pain, palpitation, dizziness and SOB Objective Last 8 Hrs Date Time Temp Pulse Resp B/P (MAP) Pulse Ox O2 Delivery O2 Flow Rate FiO2 10/02/17 15:46 36.5 59 16 112/68 (83) 96 Room Air 10/02/17 15:15 Room Air Physical Exam: General- no acute distress Head- atraumatic Eyes- PERRL, EOMI ENT- oropharynx clear Neck- no JVD Lungs- clear to auscultation Heart- regular rhythm Abdomen- normal bowel sounds, soft Extremities- no calf tenderness Neuro- alert, oriented x 3; PERRL, EOMI Skin- warm & dry Laboratory Results: Last 24 Hours Test 10/01/17 20:09 10/02/17 06:42 10/02/17 07:44 10/02/17 11:40 Bedside Glucose 244 mg/dl 132 mg/dl 147 mg/dl White Blood Count 7.84 K/uL Red Blood Count 3.50 M/uL Hemoglobin 10.5 g/dL Hematocrit 30.2 % Mean Corpuscular Volume 86.3 fL Mean Corpuscular Hemoglobin 30.0 pg Mean Corpuscular Hemoglobin Concent 34.8 g/dl RDW Standard Deviation 45.2 fL RDW Coefficient of Variation 14.6 % Platelet Count 189 K/uL Mean Platelet Volume 10.6 fL Test 10/02/17 17:11 Bedside Glucose 125 mg/dl Assessment & Plan This is a 76yo M with a PMH of lumbar stenosis with neurogenic claudication, h/ o multiple DVTs/PE, DM II, HTN, HLD and BPH who is POD #0 s/p an elective lumbar decompression fusion of L4-S1. LOW BACK PAIN S/p DAY #2 lumbar decompression fusion of L4-S1 performed by dr. Vines Continue pain control as per ortho Incentive spirometry hgb stable PT/OT H/o DVT/PE: IVC filter in place Per ortho for restarting anticoagulation post-operatively HTN: Control Continue home lisinopril, metoprolol Will resume lasix tomorrow DM II: Hgb a1c of 7.9 on 09/20/17 Hold home oral agents SSI while in-patient Add basal control if indicated BSG checks AC HS HLD: Continue home prevastatin BPH: Continue home tamsulosin DVT Ppx: Per ortho CODE STATUS FULL CODE Current Inpatient Medications: Current Inpatient Medications Medications (Trade) Dose Ordered Sig/Sarbjit Route Start Time Stop Time Status Last Admin Dose Admin Promethazine HCl 12.5 mg/Sodium Chloride 50.5 ml @ 202 mls/hr Q6H PRN IV 09/30/17 12:00 10/30/17 11:59 Ondansetron HCl (Zofran Inj) 4 mg Q6H PRN IV 09/30/17 12:00 10/30/17 11:59 Metoclopramide HCl (Reglan Inj) 10 mg Q6H PRN IV 09/30/17 12:00 10/30/17 11:59 Lorazepam (Ativan Tab) 0.5 mg Q8H PRN PO 09/30/17 12:00 10/30/17 11:59 Lorazepam 0.5 mg/ Syringe 1 ml @ 1 mls/min Q8H PRN IV 09/30/17 12:00 10/30/17 11:59 Pneumococcal Polysaccharide Vaccine 1 ea PRN PRN N/A 09/30/17 12:00 10/30/17 11:59 Influenza Virus Vacc Triv Types A&B 1 ea PRN PRN N/A 09/30/17 12:00 10/30/17 11:59 Polyethylene (Miralax Powder Packet) 17 gm Q6 PO 10/02/17 06:00 11/01/17 05:59 10/02/17 12:06 17 GM Bisacodyl (Dulcolax Supp) 10 mg DAILY PRN [place] 09/30/17 12:00 10/30/17 11:59 Magnesium Hydroxide (Milk Of Magnesia Susp) 30 ml DAILY PRN PO 09/30/17 12:00 10/30/17 11:59 Hydromorphone HCl (Dilaudid Inj) 0.5 mg Q3H PRN IV 10/01/17 06:00 10/15/17 05:59 Acetaminophen (Tylenol Tab) 1,000 mg Q8H PRN PO 09/30/17 12:00 10/30/17 11:59 Acetaminophen 100 ml @ 400 mls/hr Q8H PRN IV 09/30/17 12:00 10/30/17 11:59 Naloxone HCl (Narcan Inj) 0.1 mg Q5M PRN IV 09/30/17 12:00 10/30/17 11:59 Senna/Docusate Sodium (Senokot S Tab) 2 tab HS PO 09/30/17 21:00 10/30/17 20:59 10/01/17 20:53 2 TAB Sodium Biphosphate/ Sodium Phosphate (Fleet Enema) 132 ml ONE PRN [place] 09/30/17 12:00 10/30/17 11:59 Hydroxyzine HCl (Vistaril Tab) 25 mg Q8H PRN PO 09/30/17 12:00 10/30/17 11:59 Al Hydroxide/Mg Hydroxide (Maalox Susp) 30 ml Q6H PRN PO 09/30/17 12:00 10/30/17 11:59 Famotidine (Pepcid Tab) 20 mg Q12 PRN PO 09/30/17 12:00 10/30/17 11:59 Diphenhydramine HCl (Benadryl Cap) 25 mg Q6H PRN PO 09/30/17 12:00 10/30/17 11:59 Acetaminophen (Tylenol Supp) 650 mg Q4 PRN [place] 09/30/17 12:00 10/30/17 11:59 Acetaminophen (Tylenol Tab) 650 mg Q4 PRN PO 09/30/17 12:00 10/30/17 11:59 Ciprofloxacin HCl (Ciloxan 0.3% Op Oint) 1 appln TID OP 09/30/17 21:00 10/10/17 20:59 10/01/17 20:52 1 APPLN Docusate Sodium (coLACE CAP) 100 mg BID PO 09/30/17 21:00 10/30/17 20:59 10/02/17 08:58 100 MG Lisinopril (Zestril Tab) 2.5 mg QAM PO 09/30/17 15:00 10/30/17 14:59 10/02/17 08:59 2.5 MG Metoprolol Succinate (Toprol Xl Tab) 25 mg QAM PO 09/30/17 15:00 10/30/17 14:59 10/02/17 08:59 25 MG Pravastatin Sodium (Pravachol Tab) 20 mg QD@1700 PO 09/30/17 17:00 10/30/17 16:59 10/02/17 17:35 20 MG Ropinirole HCl (Requip Tab) 5 mg HS PO 09/30/17 21:00 10/30/17 20:59 10/01/17 20:52 5 MG Pantoprazole Sodium (Protonix Tab) 40 mg QAM PO 09/30/17 15:00 10/30/17 14:59 10/02/17 08:58 40 MG Hydromorphone HCl (Dilaudid Inj) 1 mg Q3H PRN IV 10/01/17 06:00 10/15/17 05:59 Glucose (Glucose 40% Gel) 15-30 GRAMS 15 GRAMS... UD PRN PO 09/30/17 15:30 10/30/17 15:29 Glucose (Glucose Chew Tab) 4-8 Tablets 4 Tabl... UD PRN PO 09/30/17 15:30 10/30/17 15:29 Dextrose (Dextrose 50% 50ML Syringe) 25-50ML OF 50% DW IV FOR... UD PRN IV 09/30/17 15:30 10/30/17 15:29 Glucagon (Glucagon Inj) 1 mg UD PRN SQ 09/30/17 15:30 10/30/17 15:29 Miscellaneous Information (Consult Glycemic Management Pharmacy) 1 ea UD PRN N/A 09/30/17 18:00 10/30/17 17:59 Menthol (Nice Katelyn) 1 katelyn PRN PRN PO 09/30/17 20:15 10/30/17 20:14 Tamsulosin HCl (Flomax Cap) 0.4 mg QAM PO 10/01/17 09:00 10/31/17 08:59 10/02/17 08:58 0.4 MG Metformin HCl (Glucophage Tab) 1,000 mg BIDM PO 10/02/17 08:30 11/01/17 08:29 10/02/17 08:57 1,000 MG Acetaminophen/ Hydrocodone Bitart ([place] 10/325 Tab) 1 tab Q4H PRN PO 10/01/17 10:45 10/15/17 10:44 10/02/17 14:16 1 TAB Insulin Aspart (novoLOG ASPART) SLIDING SCALE ACHS SC 10/01/17 17:15 10/31/17 17:14 10/02/17 13:04 6 UNITS Insulin Glargine (Lantus Solostar Pen) 8 units BID SC 10/02/17 09:00 11/01/17 08:59 10/02/17 09:07 8 UNITS
[2017-10-02] MEDS: ROPINIROLE HCL 5 MG TAB PO SCH (21:27)
[2017-10-02] MEDS: DOCUSATE SODIUM/SENNA 50/8.6MG TAB PO SCH (21:44)
[2017-10-02 23:13] VITALS: BP 120/71; PULSE 61; TEMP 36.8; O2SAT 90
[2017-10-03] MEDS: HYDROCODONE/ACETAMI 10/325 TAB PO PRN ×3 (04:07→13:45)
[2017-10-03] MEDS: POLYETHYLENE (MIRALAX) 17 GM PACK PO SCH ×4 (06:00→23:30)
[2017-10-03 07:16] VITALS: BP 120/69; PULSE 60; TEMP 36.8; O2SAT 94
[2017-10-03] MEDS: METFORMIN HCL 500 MG TAB PO SCH ×2 (08:38→18:07)
[2017-10-03] MEDS: CIPROFLOXACIN HCL 3.5 GM TUBE OP SCH ×3 (08:38→21:00)
[2017-10-03] MEDS: TAMSULOSIN HCL 0.4 MG CAP PO SCH (08:39)
[2017-10-03] MEDS: LISINOPRIL 5 MG TAB PO SCH (08:41)
[2017-10-03] MEDS: INSULIN ASPART 100 UNITS/ML 3 ML PEN SC SCH ×4 (08:47→21:10)
[2017-10-03] MEDS ORDERED: INSULIN GLARGINE SOLOSTAR 100 UNITS/ML 3 ML PEN SC SCH (09:00)
[2017-10-03] MEDS: PANTOprazole SOD 40 MG TAB PO SCH (10:50)
[2017-10-03] MEDS: DOCUSATE SODIUM 100 MG CAP PO SCH ×2 (10:50→21:06)
[2017-10-03] MEDS: METOPROLOL SUCC 25MG EXT REL TAB PO SCH (10:50)
--- NOTE | 2017-10-03 13:12 | Pharmacy Progress Note ---
Pharmacy Glycemic Short Note 2 Date of Service Oct 03, 2017. OUTPATIENT ANTIDIABETIC REGIMEN: * Metformin 1,000mg PO BIDM * Glipizide 5mg PO BIDM * A1c = 7.9% on 09/20/17 ASSESSMENT: * POD#0: * Pt with SEVERE hyperglycemia post op secondary to held oral agents pre-op, stress from surgery, and high dose IV dexamethasone * BSGs 153, 234, 256, 408, 362 ...etc * IV insulin infusion initiated for severe hyperglycemia * High stress weight based SQ regimen initiated for steroid induced hyperglycemia and oral agents on hold * Pt received 57 units of SQ insulin + IV insulin infusion * POD#1: * BSGs much improved with SQ + IV insulin regimen to cover steroid induced hyperglycemia * Last dose of dexamethasone @ 1200, hyperglycemia persisted until HS whenever IV insulin infusion was stopped around 1430. * High dose SQ insulin regimen for high dose steroids was utilized. * Pt received 86 units of SQ insulin + IV insulin infusion {until 1430} * POD#2: * AM fasting BSG in goal range with current basal insulin dosing. However, DXM effects should be diminished at this point. Will significantly taper regimen to prevent hypo. * Resume oral antidiabetic agents {metformin only - do not use glipizide for admission} Renal function stable and pt tolerating PO * POD#3: * BSGs ranging 115-147mg/dl over the past 24hrs * Pt has received 30 units of insulin + metformin over the past 24hrs * Continue to taper insulin regimen in anticipation of d/c * Resumed metformin yesterday, will continue to hold glipizide and utilize low dose basal + bolus insulin regimen in its place PLAN FOR INPATIENT GLYCEMIC CONTROL: * Resume outpatient metformin * HOLD glipizide until d.c. * Basal insulin: decrease * Lantus 8 units SQ daily in AM * Bolus insulin: no change * NovoLog per scale ACHS or Q6hrs while NPO * Goal Range: Low 110 mg/dL - High 140 mg/dL * Correction Factor: 25 mg/dL/unit * Nutritional / Prandial insulin per carb ratio of 1 unit per 8 grams CHO consumed
[2017-10-03 15:00] VITALS: BP 113/71; PULSE 68; TEMP 36.6; O2SAT 95
--- NOTE | 2017-10-03 16:48 | Progress Note ---
Medicine Progress Note Date & Time of Visit: Oct 03, 2017 at 16:41. Subjective Pt was seen and examined Lying in bed with no distress talking on his phone Pt said that he has not had a BM since admitted Pain is control with the pain med Denies any chest pain, palpitation, dizziness and SOB Objective Last 8 Hrs Date Time Temp Pulse Resp B/P (MAP) Pulse Ox O2 Delivery O2 Flow Rate FiO2 10/03/17 15:00 36.6 68 16 113/71 (85) 95 Room Air Physical Exam: General- no acute distress Head- atraumatic Eyes- PERRL, EOMI ENT- oropharynx clear Neck- no JVD Lungs- clear to auscultation Heart- regular rhythm Abdomen- normal bowel sounds, soft Extremities- no calf tenderness Neuro- alert, oriented x 3; PERRL, EOMI Skin- warm & dry Laboratory Results: Last 24 Hours Test 10/02/17 17:11 10/02/17 20:44 10/03/17 07:56 10/03/17 11:48 Bedside Glucose 125 mg/dl 115 mg/dl 140 mg/dl 139 mg/dl Assessment & Plan This is a 76yo M with a PMH of lumbar stenosis with neurogenic claudication, h/ o multiple DVTs/PE, DM II, HTN, HLD and BPH who is POD #0 s/p an elective lumbar decompression fusion of L4-S1. LOW BACK PAIN S/p DAY #2 lumbar decompression fusion of L4-S1 performed by dr. Vines Continue pain control as per ortho Incentive spirometry hgb stable PT/OT H/o DVT/PE: IVC filter in place JOB draining still in place Per ortho for restarting anticoagulation post-operatively HTN: Control Continue home lisinopril, metoprolol Lasix resumed BP stable DM II: Hgb a1c of 7.9 on 09/20/17 Hold home oral agents SSI while in-patient Add basal control if indicated BSG checks AC HS HLD: Continue home pravastatin BPH: Continue home tamsulosin DVT Ppx: Per ortho CODE STATUS FULL CODE Continued [facility] stay due to: fever Current Inpatient Medications: Current Inpatient Medications Medications (Trade) Dose Ordered Sig/Sarbjit Route Start Time Stop Time Status Last Admin Dose Admin Promethazine HCl 12.5 mg/Sodium Chloride 50.5 ml @ 202 mls/hr Q6H PRN IV 09/30/17 12:00 10/30/17 11:59 Ondansetron HCl (Zofran Inj) 4 mg Q6H PRN IV 09/30/17 12:00 10/30/17 11:59 Metoclopramide HCl (Reglan Inj) 10 mg Q6H PRN IV 09/30/17 12:00 10/30/17 11:59 Lorazepam (Ativan Tab) 0.5 mg Q8H PRN PO 09/30/17 12:00 10/30/17 11:59 Lorazepam 0.5 mg/ Syringe 1 ml @ 1 mls/min Q8H PRN IV 09/30/17 12:00 10/30/17 11:59 Pneumococcal Polysaccharide Vaccine 1 ea PRN PRN N/A 09/30/17 12:00 10/30/17 11:59 Influenza Virus Vacc Triv Types A&B 1 ea PRN PRN N/A 09/30/17 12:00 10/30/17 11:59 Polyethylene (Miralax Powder Packet) 17 gm Q6 PO 10/02/17 06:00 11/01/17 05:59 10/03/17 12:55 17 GM Bisacodyl (Dulcolax Supp) 10 mg DAILY PRN [place] 09/30/17 12:00 10/30/17 11:59 Magnesium Hydroxide (Milk Of Magnesia Susp) 30 ml DAILY PRN PO 09/30/17 12:00 10/30/17 11:59 10/03/17 06:26 30 ML Hydromorphone HCl (Dilaudid Inj) 0.5 mg Q3H PRN IV 10/01/17 06:00 10/15/17 05:59 Acetaminophen (Tylenol Tab) 1,000 mg Q8H PRN PO 09/30/17 12:00 10/30/17 11:59 Acetaminophen 100 ml @ 400 mls/hr Q8H PRN IV 09/30/17 12:00 10/30/17 11:59 Naloxone HCl (Narcan Inj) 0.1 mg Q5M PRN IV 09/30/17 12:00 10/30/17 11:59 Senna/Docusate Sodium (Senokot S Tab) 2 tab HS PO 09/30/17 21:00 10/30/17 20:59 10/02/17 21:44 2 TAB Sodium Biphosphate/ Sodium Phosphate (Fleet Enema) 132 ml ONE PRN [place] 09/30/17 12:00 10/30/17 11:59 Hydroxyzine HCl (Vistaril Tab) 25 mg Q8H PRN PO 09/30/17 12:00 10/30/17 11:59 Al Hydroxide/Mg Hydroxide (Maalox Susp) 30 ml Q6H PRN PO 09/30/17 12:00 10/30/17 11:59 Famotidine (Pepcid Tab) 20 mg Q12 PRN PO 09/30/17 12:00 10/30/17 11:59 Diphenhydramine HCl (Benadryl Cap) 25 mg Q6H PRN PO 09/30/17 12:00 10/30/17 11:59 Acetaminophen (Tylenol Supp) 650 mg Q4 PRN [place] 09/30/17 12:00 10/30/17 11:59 Acetaminophen (Tylenol Tab) 650 mg Q4 PRN PO 09/30/17 12:00 10/30/17 11:59 Ciprofloxacin HCl (Ciloxan 0.3% Op Oint) 1 appln TID OP 09/30/17 21:00 10/10/17 20:59 10/03/17 08:38 1 APPLN Docusate Sodium (coLACE CAP) 100 mg BID PO 09/30/17 21:00 10/30/17 20:59 10/03/17 10:50 100 MG Lisinopril (Zestril Tab) 2.5 mg QAM PO 09/30/17 15:00 10/30/17 14:59 10/03/17 08:41 2.5 MG Metoprolol Succinate (Toprol Xl Tab) 25 mg QAM PO 09/30/17 15:00 10/30/17 14:59 10/03/17 10:50 25 MG Pravastatin Sodium (Pravachol Tab) 20 mg QD@1700 PO 09/30/17 17:00 10/30/17 16:59 10/02/17 17:35 20 MG Ropinirole HCl (Requip Tab) 5 mg HS PO 09/30/17 21:00 10/30/17 20:59 10/02/17 21:27 5 MG Pantoprazole Sodium (Protonix Tab) 40 mg QAM PO 09/30/17 15:00 10/30/17 14:59 10/03/17 10:50 40 MG Hydromorphone HCl (Dilaudid Inj) 1 mg Q3H PRN IV 10/01/17 06:00 10/15/17 05:59 Glucose (Glucose 40% Gel) 15-30 GRAMS 15 GRAMS... UD PRN PO 09/30/17 15:30 10/30/17 15:29 Glucose (Glucose Chew Tab) 4-8 Tablets 4 Tabl... UD PRN PO 09/30/17 15:30 10/30/17 15:29 Dextrose (Dextrose 50% 50ML Syringe) 25-50ML OF 50% DW IV FOR... UD PRN IV 09/30/17 15:30 10/30/17 15:29 Glucagon (Glucagon Inj) 1 mg UD PRN SQ 09/30/17 15:30 10/30/17 15:29 Miscellaneous Information (Consult Glycemic Management Pharmacy) 1 ea UD PRN N/A 09/30/17 18:00 10/30/17 17:59 Menthol (Nice [place]) 1 kamilah PRN PRN PO 09/30/17 20:15 10/30/17 20:14 Tamsulosin HCl (Flomax Cap) 0.4 mg QAM PO 10/01/17 09:00 10/31/17 08:59 10/03/17 08:39 0.4 MG Metformin HCl (Glucophage Tab) 1,000 mg BIDM PO 10/02/17 08:30 11/01/17 08:29 10/03/17 08:38 1,000 MG Acetaminophen/ Hydrocodone Bitart ([place] 10/325 Tab) 1 tab Q4H PRN PO 10/01/17 10:45 10/15/17 10:44 10/03/17 13:45 1 TAB Insulin Aspart (novoLOG ASPART) SLIDING SCALE ACHS SC 10/01/17 17:15 10/31/17 17:14 10/03/17 12:58 3 UNITS Insulin Glargine (Lantus Solostar Pen) 8 units DAILY SC 10/03/17 09:00 11/02/17 08:59 10/03/17 08:48 8 UNITS
[2017-10-03] MEDS: SOD PHOSPHATE/SOD BIPHOSPHATE ENEMA 132 ML BTL PR PRN (16:50)
[2017-10-03] MEDS: PRAVASTATIN SOD 20 MG TAB PO SCH (18:07)
[2017-10-03] MEDS: ROPINIROLE HCL 5 MG TAB PO SCH (21:05)
[2017-10-03] MEDS: DOCUSATE SODIUM/SENNA 50/8.6MG TAB PO SCH (21:06)
[2017-10-03 23:15] VITALS: BP 119/71; PULSE 73; TEMP 36.9; O2SAT 95
[2017-10-04] MEDS: HYDROCODONE/ACETAMI 10/325 TAB PO PRN ×2 (05:42→18:27)
[2017-10-04] MEDS: POLYETHYLENE (MIRALAX) 17 GM PACK PO SCH ×3 (06:00→18:28)
[2017-10-04 07:30] VITALS: BP 128/78; PULSE 74; TEMP 36.7; O2SAT 95
[2017-10-04] MEDS ORDERED: HYDR-4079 PO (07:31)
--- NOTE | 2017-10-04 07:32 | Discharge Instructions ---
Discharge Instructions Date of Service Oct 04, 2017. Admission Reason for Admission: Lumbar Spinal Stenosis Discharge Discharge Diagnosis / Problem: lumbar stenosis Discharge Goals Goal(s): Improve function Activity Recommendations Activity Limitations: per Instructions/Follow-up section . Instructions / Follow-Up Instructions / Follow-Up ACTIVITY RECOMMENDATIONS: SELF CARE INSTRUCTIONS AFTER THORACIC/LUMBAR FUSIONS 1. You may walk to your tolerance. It is good exercise for your legs and back. Expect some back and intermittent leg aches and pains. 2. You may perform "counter-top" level activities (make a sandwich, freddy with a project, etc.). 3. No bending or lifting of more than 10 pounds or back twisting of any nature (roll like a log when turning in bed). 4. You may ride in a car for 20-30 minutes at a time. No driving until after your first visit with your doctor. 5. Frequent changes of position and restricting sitting to 30 minutes at a time will help limit the amount of back spasms and stiffness you may experience. 6. You may discontinue the use of ambulatory aids (cane, crutches, etc.) once your strength and confidence allow. 7. You may centerless grinder tender the shower and let water strike your incision when you arrive home at least once daily. Do not take a tub bath, sit in a hot tub or go into a swimming pool until after your first recheck in the office. SPECIAL CARE INSTRUCTIONS: VERY IMPORTANT TO READ AND REVIEW A. Your surgical incision has been closed with a cosmetic suture under the skin that will dissolve in about 6 weeks. In 14 days, you can use a pair of clean scissors and cut the suture that is left outside of the skin at the ends of your incision. 1. The small skin tapes can be removed 7 days after surgery if they have not fallen off by that point. 2. You may keep the wound open to air as much as possible to promote healing after post-op day number 5 unless told otherwise by your doctor. 3. If you think the wound looks like it is becoming infected (redness or worsening drainage) and/or you are experiencing fever, chill or worsening back pain and muscle spasms, contact the office so that we may evaluate you as soon as possible. B. Complications are uncommon, but please contact us if you have any signs or symptoms of: 1. wound infection (fever higher than 102.5 degrees F, redness, separation of wound, drainage, or increasing pain from the incision) 2. blood clots in legs (pain, swelling, redness and warmth in legs) 3. urinary tract infection (fever higher than 102.5 degrees F, burning upon urination or increased frequency of urination) 4. nerve problems (inability to walk on your toes or heels, numbness, loss of bowel or bladder control) 5. any other symptoms that concern you C. Please call the office at if you have any concerns or questions about your operation or recovery. D. No smoking! Smoking drastically decreases the chance of a solid fusion. E. Do not take any anti-inflammatory medications (Indocin, Advil, Motrin, Aspirin, Naprosyn, etc.) as these may inhibit the chance of a solid fusion. Tylenol is okay to take for pain. MANAGING PAIN AFTER SPINAL SURGERY 1. Narcotic medication is intended for short-term use and will be provided for surgical pain. Surgical pain usually lasts for a period of 4-6 weeks. Narcotic medication includes Percocet, Vicodin, Darvocet, Tylenol #3 or Lortab. 2. Longer-term pain is more appropriately treated with non-narcotic medication such as Tylenol ES. 3. Muscle spasm is not appropriately treated with narcotics. Muscle relaxers such as Soma, Flexeril or Skelaxin can be used along with Tylenol ES. 4. Remember that we all live with some "aches and pains". This is not unusual or uncommon after an injury or as we get older. a. Back pain is expected and may include muscle spasms for 4 to 6 weeks after surgery. The pain should gradually improve. If the pain worsens for no apparent reason, please contact the office. b. Intermittent leg pain may also be experienced and should not be concerned about unless it worsens for no apparent reason. If so, please contact the office. 5. We will provide appropriate medication within the normal guidelines of their prescribed use. We will also be very cautious and aware of potential abuse and extended duration of patients' medication needs. a. Pain medications are for your comfort and to assist with sleep and rest so that the tissue can heal. They are not provided in order to return to normal activity and should not be used through the day. To do so or worsening pain at night can result from ongoing tissue damage and development of tolerance to the prescribed medicine. 6. Please allow 2-3 days to process refills. Prescriptions will not be mailed but must be picked up at the office. FOLLOW UP VISIT: Keep your scheduled follow-up appointment. Any questions, please call the office at . Current Hospital Diet Patient's current hospital diet: Diabetes Type 2 Diet Discharge Diet Recommended Diet: Regular Diet Procedures Procedures Performed: #1 lumbar decompression medial facetectomies foraminotomies L3 4 L4 5 L5-S1. #2 posterior spinal fusion L4 5 L5-S1. #3 placement posterior segmental instrumentation L4 5 L5-S1. #4 interbody fusion L4 5 L5-S1. #5 placement peek Cage 14 x 26 mm at L4 5 and 12 x 26 mm at L5-S1. #6 placement of locally harvested morcellized autograft in the posterior lateral gutters. #7 placement infuse collagen sponge commode Master graft the posterior lateral gutters and ostial amp in the interbody space. Pending Studies Studies pending at discharge: no Laboratory Results Hemoglobin A1c Test 09/20/17 23:47 Range/Units Estimated Average Glucose 180 mg/dl Hemoglobin A1c 7.9 H 4.5-5.6 % Medical Emergencies . Who to Call and When: Medical Emergencies: If at any time you feel your situation is an emergency, please call 911 immediately. . Non-Emergent Contact Non-Emergency issues call your: Primary Care Provider . "Provider Documentation" section prepared by Javier Vines. . VTE Core Measure Inpt VTE Proph given/why not?: Jake Subramanian, [facility]
[2017-10-04 07:46] VITALS: O2SAT 95
[2017-10-04] MEDS: DOCUSATE SODIUM 100 MG CAP PO SCH ×2 (08:42→20:37)
[2017-10-04] MEDS: CIPROFLOXACIN HCL 3.5 GM TUBE OP SCH ×3 (08:42→20:35)
[2017-10-04] MEDS: METFORMIN HCL 500 MG TAB PO SCH ×2 (08:42→18:28)
[2017-10-04] MEDS: TAMSULOSIN HCL 0.4 MG CAP PO SCH (08:42)
[2017-10-04] MEDS: PANTOprazole SOD 40 MG TAB PO SCH (08:43)
[2017-10-04] MEDS: FUROSEMIDE 20 MG TAB PO SCH (08:43)
[2017-10-04] MEDS: METOPROLOL SUCC 25MG EXT REL TAB PO SCH (08:44)
[2017-10-04] MEDS: LISINOPRIL 5 MG TAB PO SCH (08:44)
[2017-10-04] MEDS: INSULIN ASPART 100 UNITS/ML 3 ML PEN SC SCH ×4 (08:49→21:18)
[2017-10-04] MEDS ORDERED: INSULIN GLARGINE SOLOSTAR 100 UNITS/ML 3 ML PEN SC SCH (09:00)
[2017-10-04 11:25] VITALS: BP 128/78; PULSE 79; TEMP 36.9; O2SAT 95
--- NOTE | 2017-10-04 13:28 | Progress Note ---
Progress Note Date of Service Oct 04, 2017. Progress Note Patient's back pain is improving. Again his right leg symptoms relief results. Still struggle with weakness but improving with therapy. On exam he is sitting up in bed strength improving testing lower extremities. Still struggling with urination. Did have a bowel movement yesterday. Abdomen soft. Assessment status post multilevel lumbar decompression fusion at this time we are initiating transfer to hopefully rehabilitation center eating today or tomorrow. He may require Cal[place] catheter placement and follow-up with urologist the next week.
--- NOTE | 2017-10-04 13:55 | Pharmacy Progress Note ---
Glycemic Control Progress Note Date of Service Oct 04, 2017. Scope Glycemic Pharmacist consulted for glycemic control to write orders per [facility] inpatient glycemic control protocol. Objective Accuchecks BSG (last 24hrs): Test 10/03/17 11:48 10/03/17 17:23 10/03/17 20:24 10/04/17 07:57 Bedside Glucose 139 mg/dl (70-99) 182 mg/dl (70-99) 173 mg/dl (70-99) 172 mg/dl (70-99) Recent Pertinent Medications The patient is currently receiving: * Basal insulin: Lantus 8 units every 24 hours in the morning * Correctional Insulin: Novolog Correction per scale ACHS Goal Range: Low 110 mg/dL - High 140 mg/dL Correction Factor: 25 mg/dL/unit * Prandial insulin: Per carb ratio of 1 unit per 8 grams CHO consumed Outpatient Anti-Diabetic Meds metformin 1 gm BID plus glipizide 5 mg PO BID Assessment & Plan ASSESSMENT: * See progress note from 10/01/17 for more background info, in short: * Pt receiving SQ basal bolus insulin regimen for hyperglycemia secondary to baseline DM (outpatient regimen on hold), POD 4 for lumbar decompression surgery. * Patient is currently receiving an average of 20 units of insulin per day * 8 units of basal insulin * 11 units of prandial/correctional insulin * BSGs ranging 139 - 182 mg/dl over the past 24hrs * Changes needed to insulin regimen: * AM Fasting BSG = 172 mg/dl. This is slightly above goal range for patient based on inpatient targets and co-morbidities. Therefore Basal insulin needs to be increased. As the patient is several days post surgery, will increase Lantus gradually. Increased by 20% to 10 units daily... at lunch patient was still elevated so extra Lantus given to make 0.2 units/kg/day * Post-prandial BSGs are elevated and trended upwards at dinner. Slightly tightened carbohydrate ratio and correction factor. * Total daily dose = 20 units plus metformin. Continue current regimen with increased Lantus. PLAN FOR INPATIENT GLYCEMIC CONTROL: * INCREASING Lantus to 10 units SQ daily plus additional 8 units today * TIGHTENING correction factor to 20 mg/dl/unit * TIGHTENING carb ratio to 1 unit per 7 grams CHO consumed * Continuing goal range to Low 110 mg/dL - High 140 mg/dL RECOMMENDATIONS FOR DISCHARGE: * Goal HBA1C is 6.6-7.5% based upon Elements of Diabetes Care Scoring Scale from the ADA ..... the patient's currently HbA1C is 7.9% and this is above the goal range. Recommend initiation of injectable agent (such as Lantus- if added discontinue glipizide due to increased risk of hypoglycemia) or third oral agent if patient is not amenable to this. Thank you.
[2017-10-04] MEDS ORDERED: INSULIN GLARGINE SOLOSTAR 100 UNITS/ML 3 ML PEN SC ONE (14:00)
[2017-10-04 14:53] VITALS: BP 94/66; PULSE 83; TEMP 36.8; O2SAT 97
[2017-10-04] MEDS: PRAVASTATIN SOD 20 MG TAB PO SCH (17:13)
--- NOTE | 2017-10-04 19:02 | Progress Note ---
Medicine Progress Note Date & Time of Visit: Oct 04, 2017 at 18:58. Subjective Pt was seen and examined Lying in bed with no distress He had a BM yesterday he said that his pain slightly improved denies any chest pain, palpitation, dizziness and SOB Objective Last 8 Hrs Date Time Temp Pulse Resp B/P (MAP) Pulse Ox O2 Delivery O2 Flow Rate FiO2 10/04/17 15:45 Room Air 10/04/17 14:53 36.8 83 18 94/66 (75) 97 Room Air 10/04/17 11:25 36.9 79 18 128/78 (95) 95 Room Air Physical Exam: General- no acute distress Head- atraumatic Eyes- PERRL, EOMI ENT- oropharynx clear Neck- no JVD Lungs- clear to auscultation Heart- regular rhythm Abdomen- normal bowel sounds, soft Extremities- no calf tenderness Neuro- alert, oriented x 3; PERRL, EOMI Skin- warm & dry Laboratory Results: Last 24 Hours Test 10/03/17 20:24 10/04/17 07:57 10/04/17 12:02 10/04/17 16:54 Bedside Glucose 173 mg/dl 172 mg/dl 221 mg/dl 205 mg/dl Assessment & Plan This is a 76yo M with a PMH of lumbar stenosis with neurogenic claudication, h/ o multiple DVTs/PE, DM II, HTN, HLD and BPH who is POD #0 s/p an elective lumbar decompression fusion of L4-S1. LOW BACK PAIN S/p DAY #3 lumbar decompression fusion of L4-S1 performed by dr. Vines Continue pain control as per ortho Incentive spirometry hgb stable Waiting for placement to rehab PT/OT H/o DVT/PE: IVC filter in place Please start on anticoagulant if bleeding stable Per ortho for restarting anticoagulation post-operatively HTN: Control Continue home lisinopril, metoprolol Lasix resumed BP stable DM II: Hgb a1c of 7.9 on 09/20/17 Hold home oral agents SSI while in-patient Add basal control if indicated BSG checks AC HS HLD: Continue home pravastatin BPH: Continue home tamsulosin DVT Ppx: Per ortho CODE STATUS FULL CODE Continued [facility] stay due to: fever Current Inpatient Medications: Current Inpatient Medications Medications (Trade) Dose Ordered Sig/Sarbjit Route Start Time Stop Time Status Last Admin Dose Admin Promethazine HCl 12.5 mg/Sodium Chloride 50.5 ml @ 202 mls/hr Q6H PRN IV 09/30/17 12:00 10/30/17 11:59 Ondansetron HCl (Zofran Inj) 4 mg Q6H PRN IV 09/30/17 12:00 10/30/17 11:59 Metoclopramide HCl (Reglan Inj) 10 mg Q6H PRN IV 09/30/17 12:00 10/30/17 11:59 Lorazepam (Ativan Tab) 0.5 mg Q8H PRN PO 09/30/17 12:00 10/30/17 11:59 Lorazepam 0.5 mg/ Syringe 1 ml @ 1 mls/min Q8H PRN IV 09/30/17 12:00 10/30/17 11:59 Pneumococcal Polysaccharide Vaccine 1 ea PRN PRN N/A 09/30/17 12:00 10/30/17 11:59 Influenza Virus Vacc Triv Types A&B 1 ea PRN PRN N/A 09/30/17 12:00 10/30/17 11:59 Polyethylene (Miralax Powder Packet) 17 gm Q6 PO 10/02/17 06:00 11/01/17 05:59 10/04/17 18:28 17 GM Bisacodyl (Dulcolax Supp) 10 mg DAILY PRN UT 09/30/17 12:00 10/30/17 11:59 10/04/17 17:38 10 MG Magnesium Hydroxide (Milk Of Magnesia Susp) 30 ml DAILY PRN PO 09/30/17 12:00 10/30/17 11:59 10/03/17 06:26 30 ML Hydromorphone HCl (Dilaudid Inj) 0.5 mg Q3H PRN IV 10/01/17 06:00 10/15/17 05:59 Acetaminophen (Tylenol Tab) 1,000 mg Q8H PRN PO 09/30/17 12:00 10/30/17 11:59 Acetaminophen 100 ml @ 400 mls/hr Q8H PRN IV 09/30/17 12:00 10/30/17 11:59 Naloxone HCl (Narcan Inj) 0.1 mg Q5M PRN IV 09/30/17 12:00 10/30/17 11:59 Senna/Docusate Sodium (Senokot S Tab) 2 tab HS PO 09/30/17 21:00 10/30/17 20:59 10/03/17 21:06 2 TAB Sodium Biphosphate/ Sodium Phosphate (Fleet Enema) 132 ml ONE PRN UT 09/30/17 12:00 10/30/17 11:59 10/03/17 16:50 132 ML Hydroxyzine HCl (Vistaril Tab) 25 mg Q8H PRN PO 09/30/17 12:00 10/30/17 11:59 Al Hydroxide/Mg Hydroxide (Maalox Susp) 30 ml Q6H PRN PO 09/30/17 12:00 10/30/17 11:59 Famotidine (Pepcid Tab) 20 mg Q12 PRN PO 09/30/17 12:00 10/30/17 11:59 Diphenhydramine HCl (Benadryl Cap) 25 mg Q6H PRN PO 09/30/17 12:00 10/30/17 11:59 Acetaminophen (Tylenol Supp) 650 mg Q4 PRN UT 09/30/17 12:00 10/30/17 11:59 Acetaminophen (Tylenol Tab) 650 mg Q4 PRN PO 09/30/17 12:00 10/30/17 11:59 Ciprofloxacin HCl (Ciloxan 0.3% Op Oint) 1 appln TID OP 09/30/17 21:00 10/10/17 20:59 10/03/17 08:38 1 APPLN Docusate Sodium (coLACE CAP) 100 mg BID PO 09/30/17 21:00 10/30/17 20:59 10/04/17 08:42 100 MG Lisinopril (Zestril Tab) 2.5 mg QAM PO 09/30/17 15:00 10/30/17 14:59 10/04/17 08:44 2.5 MG Metoprolol Succinate (Toprol Xl Tab) 25 mg QAM PO 09/30/17 15:00 10/30/17 14:59 10/04/17 08:44 25 MG Pravastatin Sodium (Pravachol Tab) 20 mg QD@1700 PO 09/30/17 17:00 10/30/17 16:59 10/04/17 17:13 20 MG Ropinirole HCl (Requip Tab) 5 mg HS PO 09/30/17 21:00 10/30/17 20:59 10/03/17 21:05 5 MG Pantoprazole Sodium (Protonix Tab) 40 mg QAM PO 09/30/17 15:00 10/30/17 14:59 10/04/17 08:43 40 MG Hydromorphone HCl (Dilaudid Inj) 1 mg Q3H PRN IV 10/01/17 06:00 10/15/17 05:59 Glucose (Glucose 40% Gel) 15-30 GRAMS 15 GRAMS... UD PRN PO 09/30/17 15:30 10/30/17 15:29 Glucose (Glucose Chew Tab) 4-8 Tablets 4 Tabl... UD PRN PO 09/30/17 15:30 10/30/17 15:29 Dextrose (Dextrose 50% 50ML Syringe) 25-50ML OF 50% DW IV FOR... UD PRN IV 09/30/17 15:30 10/30/17 15:29 Glucagon (Glucagon Inj) 1 mg UD PRN SQ 09/30/17 15:30 10/30/17 15:29 Miscellaneous Information (Consult Glycemic Management Pharmacy) 1 ea UD PRN N/A 09/30/17 18:00 10/30/17 17:59 Menthol (Nice Katelyn) 1 katelyn PRN PRN PO 09/30/17 20:15 10/30/17 20:14 Tamsulosin HCl (Flomax Cap) 0.4 mg QAM PO 10/01/17 09:00 10/31/17 08:59 10/04/17 08:42 0.4 MG Metformin HCl (Glucophage Tab) 1,000 mg BIDM PO 10/02/17 08:30 11/01/17 08:29 10/04/17 18:28 1,000 MG Acetaminophen/ Hydrocodone Bitart ([place] 10/325 Tab) 1 tab Q4H PRN PO 10/01/17 10:45 10/15/17 10:44 10/04/17 18:27 1 TAB Insulin Aspart (novoLOG ASPART) SLIDING SCALE ACHS SC 10/01/17 17:15 10/31/17 17:14 10/04/17 18:40 4 UNITS Furosemide (Lasix Tab) 20 mg QAM PO 10/04/17 09:00 11/03/17 08:59 10/04/17 08:43 20 MG Insulin Glargine (Lantus Solostar Pen) 15 units DAILY SC 10/05/17 09:00 11/03/17 08:59
[2017-10-04] MEDS: SOD PHOSPHATE/SOD BIPHOSPHATE ENEMA 132 ML BTL PR PRN (19:18)
[2017-10-04] MEDS: ROPINIROLE HCL 5 MG TAB PO SCH (20:37)
[2017-10-04] MEDS: DOCUSATE SODIUM/SENNA 50/8.6MG TAB PO SCH (20:37)
[2017-10-04 23:26] VITALS: BP 96/61; PULSE 83; TEMP 36.3; O2SAT 94
[2017-10-05] MEDS: HYDROCODONE/ACETAMI 10/325 TAB PO PRN ×3 (03:02→15:24)
[2017-10-05] MEDS: POLYETHYLENE (MIRALAX) 17 GM PACK PO SCH ×3 (05:38→13:06)
[2017-10-05 07:24] VITALS: BP 123/71; PULSE 79; TEMP 36.6; O2SAT 98
[2017-10-05] MEDS: TAMSULOSIN HCL 0.4 MG CAP PO SCH (08:42)
[2017-10-05] MEDS: METFORMIN HCL 500 MG TAB PO SCH (08:42)
[2017-10-05] MEDS: LISINOPRIL 5 MG TAB PO SCH (08:42)
[2017-10-05] MEDS: FUROSEMIDE 20 MG TAB PO SCH (08:42)
[2017-10-05] MEDS: CIPROFLOXACIN HCL 3.5 GM TUBE OP SCH ×2 (08:43→13:03)
[2017-10-05] MEDS: DOCUSATE SODIUM 100 MG CAP PO SCH (08:43)
[2017-10-05] MEDS: METOPROLOL SUCC 25MG EXT REL TAB PO SCH (08:43)
[2017-10-05] MEDS: PANTOprazole SOD 40 MG TAB PO SCH (08:43)
[2017-10-05] MEDS: INSULIN ASPART 100 UNITS/ML 3 ML PEN SC SCH ×2 (08:54→13:08)
[2017-10-05] MEDS ORDERED: INSULIN GLARGINE SOLOSTAR 100 UNITS/ML 3 ML PEN SC SCH ×3 (09:00→21:00)
--- NOTE | 2017-10-05 10:11 | Pharmacy Progress Note ---
Glycemic Control Progress Note Date of Service Oct 05, 2017. Scope Glycemic Pharmacist consulted for glycemic control to write orders per [facility] inpatient glycemic control protocol. Objective Accuchecks BSG (last 24hrs): Test 10/04/17 12:02 10/04/17 16:54 10/04/17 20:42 10/05/17 08:04 Bedside Glucose 221 mg/dl (70-99) 205 mg/dl (70-99) 177 mg/dl (70-99) 198 mg/dl (70-99) Recent Pertinent Medications The patient is currently receiving: * Basal insulin: Lantus 18 units every 24 hours in the morning * Correctional Insulin: Novolog Correction per scale ACHS Goal Range: Low 110 mg/dL - High 140 mg/dL Correction Factor: 20 mg/dL/unit * Prandial insulin: Per carb ratio of 1 unit per 7 grams CHO consumed Outpatient Anti-Diabetic Meds metformin 1 gm PO BID + glipizide 5 mg PO BID Assessment & Plan ASSESSMENT: * See progress note from 10/01/17 for more background info, in short: * Pt receiving SQ basal bolus insulin regimen for hyperglycemia secondary to baseline DM (outpatient regimen on hold), POD 5 for lumbar decompression surgery. * Patient is currently receiving an average of 30 units of insulin per day * 18 units of basal insulin * 16 units of prandial/correctional insulin * BSGs ranging 171 - 221 mg/dl over the past 24hrs * Changes needed to insulin regimen: * AM Fasting BSG = 198 mg/dl. This is slightly above goal range for patient based on inpatient targets and co-morbidities. Ms Sewell's fasting blood sugar has increased over the past several days. This is complicated by him not eating much (no lunch, dinner and only juice for breakfast). Patient feels full. Comfortable with giving 20 units of Lantus this morning as 18 units yesterday was not sufficient plus a light scale this evening. Believe true TDD is around 40-50 units/day. * Post-prandial BSGs are elevated. Yesterday he did not eat much and the correction factor appeared to correct his elevated blood sugars. The breakfast to lunch blood sugar trended downwards....lighted parameters for lunch. * Total daily dose = estimated around 40-50 units plus metformin. Continue current regimen with increased Lantus. PLAN FOR INPATIENT GLYCEMIC CONTROL: * INCREASING Lantus to 20 units SQ x 1 then a scale this evening (0-15 units) * LOOSENING correction factor to 25 mg/dl/unit * LOOSENING carb ratio to 1 unit per 8 grams CHO consumed * Continuing goal range to Low 110 mg/dL - High 140 mg/dL RECOMMENDATIONS FOR DISCHARGE: * Goal HBA1C is 6.6-7.5% based upon Elements of Diabetes Care Scoring Scale from the ADA ..... the patient's currently HbA1C is 7.9% and this is above the goal range. Recommend initiation of injectable agent (such as Lantus- if added discontinue glipizide due to increased risk of hypoglycemia) or third oral agent if patient is not amenable to this. Thank you.
[2017-10-05] MEDS ORDERED: HYDR-4079 PO (10:57)
--- NOTE | 2017-10-05 11:16 | Discharge Summary ---
Orthopedic Discharge Summary Admission Date/Reason Sep 30, 2017 at 09:00 Lumbar Spinal Stenosis. Discharge Date/Disposition Oct 05, 2017 Rehab Diagnosis Principal Diagnosis: Lumbar spinal stenosis Admission Physical Exam As per Admitting History & Physical. Hospital Course Patient underwent lumbar decompression fusion tolerated this well as taken to the orthopedic floor postoperatively. Postop day #1 he began physical therapy progress throughout the weekend. Every day. Getting stronger and stronger. We did elect to maintain indwelling catheter secondary to urinary retention. He is discharged to rehabilitation today. Discharge orders and instructions found the chart for further review. Discharge Instructions Please refer to the electronic Patient Visit Report (Discharge Instructions) for additional information.
[2017-10-05 14:56] VITALS: BP 123/71; PULSE 79; TEMP 36.6; O2SAT 98
[2017-10-05 15:30] VITALS: BP 113/70; PULSE 72; TEMP 36.4; O2SAT 98
== END 2017-10-05 16:00 | DRG 455 ==
LOC: C.ACU 07:47 → C.3E 09:00 → ENRESERV 13:04
PROVIDERS: ADMIT Orthopaedic Surgery Orthopaedic Surgery of the Spine; ATTEND Orthopaedic Surgery Orthopaedic Surgery of the Spine
PROC: 0ST40ZZ Resection of Lumbosacral Disc, Open Approach (ICD-10-PCS; principal; 2017-09-30 10:00)
PROC: 01NB0ZZ Release Lumbar Nerve, Open Approach (ICD-10-PCS; principal; 2017-09-30 10:00)
PROC: 0SG30AJ Fusion of Lumbosacral Joint with Interbody Fusion Device, Posterior Approach, Anterior Column, Open Approach (ICD-10-PCS; principal; 2017-09-30 10:00)
PROC: 0SG00AJ Fusion of Lumbar Vertebral Joint with Interbody Fusion Device, Posterior Approach, Anterior Column, Open Approach (ICD-10-PCS; principal; 2017-09-30 10:00)
PROC: 0SG3071 Fusion of Lumbosacral Joint with Autologous Tissue Substitute, Posterior Approach, Posterior Column, Open Approach (ICD-10-PCS; principal; 2017-09-30 10:00)
PROC: 0SG0071 Fusion of Lumbar Vertebral Joint with Autologous Tissue Substitute, Posterior Approach, Posterior Column, Open Approach (ICD-10-PCS; principal; 2017-09-30 10:00)
PROC: 0ST20ZZ Resection of Lumbar Vertebral Disc, Open Approach (ICD-10-PCS; principal; 2017-09-30 10:00)
DX: M48.061 Spinal stenosis, lumbar region without neurogenic claudication (principal); M43.16 Spondylolisthesis, lumbar region; R33.8 Other retention of urine; E11.9 Type 2 diabetes mellitus without complications; I10 Essential (primary) hypertension; E78.5 Hyperlipidemia, unspecified; N40.1 Benign prostatic hyperplasia with lower urinary tract symptoms; Z86.718 Personal history of other venous thrombosis and embolism; Z86.711 Personal history of pulmonary embolism